=== PATIENT | male | born 1990 | race Caucasian/White ===

== ENCOUNTER 2016-11-04 13:24 | Emergency (ER) | payer BC, OTHER ==
[~2016-11-04] VITALS: Ht 172.7 cm; Wt 77.0 kg
[2016-11-04 13:32] VITALS: TEMP 36.9; Ht 172.7 cm; Wt 77.0 kg
[2016-11-04] MEDS ORDERED: KETOROLAC TROMETHAMINE 30 MG/ML VIAL IV STA (13:49)
--- NOTE | 2016-11-04 13:52 | EMERGENCY ROOM VISIT NOTE ---
History Report prepared by Shyam: Emily Ryan Under the Supervision of: Dr. Grant Gonzalez D.O. First contact with patient: 13:41 Chief Complaint: THROAT PAIN/INJURY Stated Complaint: SORE THROAT History of Present Illness The patient is a 26 year old male who presents to the Emergency Room with complaints of a constant sore throat beginning a week ago. The patient states that he is having a hard time eating and has been spitting out his saliva. He reports that he has been on a z pac and has not gotten any better. He notes that he has gotten all of his vaccines and was tested negative for strep with a rapid test. The patient states that he has never had mono. He complains of face swelling and throat tenderness. Source of History: patient Onset: a week ago Position: throat Quality: other (sore) Timing: constant Modifying Factors (Worsening): eating Note: Pt notes throat tenderness and face swelling. Review of Systems See above for pertinent positives & negatives. A total of 10 systems reviewed and were otherwise negative. Past Medical & Surgical Medical Problems: (1) No Known Active Medical Problems Family History Diabetes mellitus Hypertension Social History Smoking Status: Never Smoker Smokeless Tobacco Use: Yes Alcohol Use: occasionally Drug Use: none Marital Status: in relationship Occupation Status: employed Current/Historical Medications Scheduled Azithromycin (Zithromax), 250 MG PO DAILY Scheduled PRN Rizatriptan Benzoate (Maxalt), 10 MG PO for Migraine Allergies Coded Allergies: BEE STING (Verified Allergy, Unknown, ., 11/04/16) Physical Exam Vital Signs Date Time Temp Pulse Resp B/P Pulse Ox O2 Delivery O2 Flow Rate FiO2 11/04/16 13:32 36.9 112 18 142/84 99 Room Air Physical Exam GENERAL: Patient is well appearing and in no acute distress. HEENT: No acute trauma, normocephalic atraumatic, mucous membranes moist, no nasal congestion, no scleral icterus. Erythematous posterior pharynx, pus over the left tonsil, halitosis. NECK: No stridor, no adenopathy, no meningismus, trachea is midline. LUNGS: No dyspnea. Clear to auscultation and equal bilaterally. No wheeze, no rhonchi. HEART: Regular rate and rhythm. No murmurs, rubs, gallops appreciated. ABDOMEN: Soft, nontender, bowel sounds positive, no masses appreciated, no peritonitis. BACK: No midline tenderness, no CVA tenderness EXTREMITIES: Normal motion all extremities, no cyanosis, no edema. NEUROLOGIC: Alert and oriented, no acute motor or sensory deficits, no focal weakness, cranial nerves grossly intact. SKIN: No rash, no jaundice, no diaphoresis. Medical Decision & Procedures Laboratory Results 11/04/16 13:58 Red Blood Count 4.98, Mean Corpuscular Volume 89.8, Mean Corpuscular Hemoglobin 30.9, Mean Corpuscular Hemoglobin Concent 34.5, Mean Platelet Volume 8.6 11/04/16 13:58 Test 11/04/16 13:58 White Blood Count 13.71 K/uL (4.8-10.8) Red Blood Count 4.98 M/uL (4.7-6.1) Hemoglobin 15.4 g/dL (14.0-18.0) Hematocrit 44.7 % (42-52) Mean Corpuscular Volume 89.8 fL (80-100) Mean Corpuscular Hemoglobin 30.9 pg (25-34) Mean Corpuscular Hemoglobin Concent 34.5 g/dl (32-36) Platelet Count 193 K/uL (130-400) Mean Platelet Volume 8.6 fL (7.4-10.4) RDW Standard Deviation 41.8 fL (36.4-46.3) RDW Coefficient of Variation 12.8 % (11.5-14.5) Neutrophils % (Manual) 42.9 % Lymphocytes % (Manual) 11.6 % Variant Lymphocytes % (manual) 35.7 % Monocytes % (Manual) 8.9 % Metamyelocytes % 0.9 % Neutrophils # (Manual) 5.88 K/uL (1.4-6.5) Total Absolute Neutrophils 5.88 K/uL (1.4-6.5) Lymphocytes # (Manual) 1.59 K/uL (1.2-3.4) Absolute Variant Lymphocytes 4.89 K/uL Total Absolute Lymphocytes 6.48 K/uL (1.2-3.4) Monocytes # (Manual) 1.22 K/uL (0.11-0.59) Metamyelocytes # 0.12 K/uL (0-0) Red Blood Cell Morphology Unremarkable Anion Gap 12.0 mmol/L (3-11) Est Creatinine Clear Calc Drug Dose 117.2 ml/min Estimated GFR () 131.0 Estimated GFR (Non- 113.0 BUN/Creatinine Ratio 14.6 (10-20) Calcium Level 9.3 mg/dl (8.5-10.1) Monoscreen POS (NEG) Laboratory results as reviewed by me. Medications Administered Medications (Trade) Dose Ordered Sig/Ladarius Route Start Time Stop Time Status Last Admin Dose Admin Lactated Ringer's (Lr 1000ml) 1,000 ml @ 999 mls/hr Q1H1M IV 11/04/16 14:00 11/04/16 16:00 11/04/16 14:22 999 MLS/HR Ketorolac Tromethamine 30 mg 30 mg NOW STAT IV 11/04/16 13:49 11/04/16 13:51 DC 11/04/16 14:22 30 MG Dexamethasone Sodium Phosphate/ Syringe (Decadron Inj/ Syringe) 2.5 ml @ 1 mls/min ONE ONCE IV 11/04/16 14:00 11/04/16 14:02 DC 11/04/16 14:22 1 MLS/MIN ED Course 1341: The patient was evaluated in room C8. A complete history and physical exam was performed. 1349: Toradol Inj 30mg IV. 1400: Dexamethasone Sodium Phosphate 10mg/Syringe 2.5ml @ 1mls/min IV, Lactated Ringers 1000mls @ 999mls/hr IV. Medical Decision Differential diagnoses mumps, mono, strep, viral pharyngitis, and acute leukemia. Patient is 26-year-old male who's had a acute pharyngitis for approximately 2 weeks he finished a course of Keflex and is currently finishing a course of Zithromax. Difficulty swallowing and is having subjective fevers and generalized malaise. His Monospot was positive, I told him to finish his azithromycin at the present time, he was given 10 mg Decadron. Due to a mumps outbreak and tenderness I have sent mumps IgG and IgM however I do not feel that it is consistent with mumps. Patient will be off work the rest of the week and follow-up with his primary care provider next week. Impression Primary Impression: Acute pharyngitis due to infectious mononucleosis Additional Impression: Infectious mononucleosis Scribe Attestation The scribe's documentation has been prepared under my direction and personally reviewed by me in its entirety. I confirm that the note above accurately reflects all work, treatment, procedures, and medical decision making performed by me. Departure Information Dispostion Home / Self-Care Prescriptions Acetaminophen (ACETAMINOPHEN) 500 Mg Tab 1-2 TAB PO Q8H for Pain, #90 TAB Prov: Grant Gonzalez, Tracy.O. 11/04/16 Ibuprofen Tab (MOTRIN) 800 Mg Tab 800 MG PO Q8H Y for Pain, #30 TAB Prov: Grant Gonzalez, Tracy.O. 11/04/16 Referrals No Doctor, Assigned (PCP) Patient Instructions My [facility] Additional Instructions Off work for the rest of this week. Follow-up with her primary care provider next week. Return for being lightheaded passing out or any other concerns. Work Instructions Return To Work: 3 days Specific Date: 11/04/16-11/07/16 Problem Qualifiers
[2016-11-04] MEDS ORDERED: RIZA10TA18 PO (13:53)
[2016-11-04] MEDS ORDERED: AZIT250T PO (13:53)
[2016-11-04] MEDS ORDERED: DEXAMETHASONE INJ 10 MG in SYRINGE 0 ML IV ONE (14:00)
[2016-11-04 14:11] LABS: HEMATOCRIT 44.7 % (42-52); MEAN CELL VOLUME 89.8 fL (80-100); MEAN CORPUSCULAR HEMOGLOBIN 30.9 pg (25-34); MEAN CORPUSCULAR HGB CONC 34.5 g/dl (32-36); MEAN PLATELET VOLUME 8.6 fL (7.4-10.4); PLATELET COUNT 193 K/uL (130-400); RED BLOOD COUNT 4.98 M/uL (4.7-6.1); WHITE BLOOD COUNT 13.71 K/uL (4.8-10.8)
[2016-11-04] MEDS: LACTATED RINGER'S 1000ML 1,000 ML IV SCH ×2 (14:22→15:20)
[2016-11-04 14:32] LABS: BUN/CREATININE RATIO 14.6 (10-20); CALCIUM 9.3 mg/dl (8.5-10.1); CREATININE 0.94 mg/dl (0.60-1.40); POTASSIUM 4.1 mmol/L (3.5-5.1)
[2016-11-04 14:34] LABS: COMPLETE YES; LYMPH ABS # 1.59 K/uL (1.2-3.4); LYMPHOCYTE % 11.6 %; META ABS # 0.12 K/uL (0-0); METAMYELOCYTE % 0.9 %; NEUTROPHILS % 42.9 %; VARIANT LYM ABS # 4.89 K/uL; VARIANT LYMPHOCYTE % 35.7 %
[2016-11-04] MEDS ORDERED: IBUP-1451 PO (14:57)
[2016-11-04] MEDS ORDERED: ACET500T57 PO (14:57)
[2016-11-04 15:52] VITALS: BP 149/80; PULSE 94; O2SAT 98
== END 2016-11-04 15:54 | disposition home or self-care (01) ==
LOC: C.EDB 13:25 → C.EDC 15:54
DX: J02.9 Acute pharyngitis, unspecified (principal); B27.90 Infectious mononucleosis, unspecified without complication

== ENCOUNTER 2022-03-07 09:26 | Inpatient (IN) ==
--- NOTE | 2022-03-07 09:43 | Emergency Department Note ---
Impression & Plan Glioblastoma multiforme, Fall, Acute right-sided weakness ED Provider Note NAME: TREY ALLRED AGE: 31 SEX: M : 1990 ARRIVES VIA: Ambulance INFORMANT: Patient ED PROVIDER(S): Anatoly Oreilly DO CHIEF COMPLAINT: Fall and AMS HPI: The patient is a 31-year-old male with past medical history of GBM stage IV diagnosed in 2019 follows with [facility] on Keppra and Coumadin who presents ER for fall, weakness and confusion. Occurred just prior to arrival. heard a thud in the bathroom and went in and he was confused and could not move his right side. Brought in by EMS. Patient denies any headache or change in vision. No chest pain or shortness of breath. No nausea vomiting or diarrhea. He is able to answer yes and no questions but speech is limited at this time. notes that after several minutes his speech came back gradually has been improving. The weakness in the right side has also been improving. ROS: See above HPI for pertinent positives & negatives. A total of 10 systems reviewed and were otherwise negative. PAST MEDICAL HISTORY:See Below PAST SURGICAL HISTORY:See Below FAMILY HISTORY:See Below SOCIAL HISTORY:See Below HOME MEDICATIONS:See Below ALLERGIES:See Below VITALS:See Below PHYSICAL EXAMINATION: GENERAL: Sitting up in bed, alert, well appearing, well nourished, no distress, non-toxic EYE EXAM: normal conjunctiva. PERRL and EOM's grossly intact. OROPHARYNX: no exudate, no erythema, lips, buccal mucosa, and tongue normal and mucous membranes are moist NECK: supple, no nuchal rigidity, no adenopathy, non-tender LUNGS: Clear to auscultation. Normal chest wall mechanics HEART: no murmurs, S1 normal and S2 normal ABDOMEN: abdomen soft, non-tender, normo-active bowel sounds, no masses, no rebound or guarding. BACK: Back is symmetrical on inspection and there is no deformity, no midline tenderness, no CVA tenderness. SKIN: no rashes and no bruising UPPER EXTREMITIES: upper extremities are grossly normal. LOWER EXTREMITIES: No pitting edema. 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 No weakness on the left. Garbled speech. MEDICAL DECISION MAKING: Patient is a 31-year-old male with a past medical history of a GBM presents the ER following collapsed in the bathroom with confusion which gradually improved in front of the . Upon presentation to the ER he has a focal right-sided deficit. He is on Coumadin does have a known brain mass. He was found to be fe brile 38 degrees. IV was established blood work was obtained labs showed no significant leukocytosis or anemia. INR was elevated at 2.3. BMP with LFTs bilirubin was unremarkable. Troponin was negative. UA was clean. He was COVID-positive. He is not hypoxic. CT angios of the head were negative. Discussed case with Dr. Trevizo from [facility] neurosurgery. Attempted to send the images down to him but he was unable to visualize them. Discussed the report with him in comparison to MRI performed 10 days ago and he notes it is very similar. He does not believe he needs to be transferred down. Discussed with the hospitalist for further observation as he still has right-sided weakness. Question if this was seizure as when he woke up he was confused and gradually improved first stroke. He was not candidate for tPA with the elevated INR. Patient was admitted for further work-up. Triage Nursing notes reviewed. Limited review of prior medical records performed Vital Signs: reviewed and remarkable for no significant abnormalities Differential diagnosis: Differential Diagnosis includes but is not limited to ischemic Stroke, hemo rrhagic stroke, bells palsy, mass, neoplasm, migraine headache, seizure, subarachnoid hemorrhage, TIA, and transient global amnesia. ER treatment provided: See below Diagnostics interpreted by me: ECG: Sinus rhythm rate 94 Normal axis No PVCs QTC 397 Cardiac Monitoring: An order was placed for continuous cardiac monitoring. The monitor shows a rate of 90 with sinus rhythm. Laboratory studies: As stated above and show below. Imaging studies: CT angios of the head and neck as described Consultation(s): D/w hospitalist and neurosurgery as described above Procedures: none Critical Care: None Past Med/Surg History Medical History (Updated 03/07/22 @ 15:17 by Anatoly Oreilly DO) DVT (deep venous thrombosis) (06/15/20) Expressive aphasia Migraine headache Seizures (~02/2020) Stroke (05/30/20) Venom-induced anaphylaxis Surgical History H/O craniotomy (09/29/20) History of wisdom tooth extraction Family History Grandfather (Paternal) Diabetes Mother Hypercholesterolemia Denies family history of Ovarian cancer Prostate cancer Myocardial infarction Breast cancer Colorectal cancer Social History Smoking Status: Never smoker Second Hand Exposure: No; Hx Alcohol Use: Yes Alcohol type: beer Alcohol Intake Frequency: Monthly or Less Hx Substance Use: No Preferred Language: Polish Communication Ability: Effective Visual Impairment: No Limitations Hearing Ability: Normal 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 Beliefs That Will Affect Care: None marital status: Current Living Situation: Spouse current occupational status: employed 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 Verified 08/27/20 15:17 No Known Drug Allergies Allergy Verified 08/27/20 15:17 Home Meds Home Medications Medication Instructions Recorded Confirmed enoxaparin 80 mg/0.8 mL 80 mg SUBCUT Q12H 06/20/20 03/07/22 subcutaneous syringe (Lovenox) lacosamide 200 mg tablet 200 mg PO BID 06/20/20 03/07/22 levetiracetam 500 mg tablet 1,500 mg PO BID tab 06/20/20 03/07/22 acetaminophen 500 mg tablet 500 mg PO Q6H PRN 08/07/20 03/07/22 (Tylenol Extra Strength) ondansetron HCl 8 mg tablet 8 mg PO Q8H PRN 08/07/20 03/07/22 prochlorperazine maleate 10 mg 10 mg PO Q6H PRN 08/07/20 03/07/22 tablet (Compazine) temozolomide 140 mg capsule 140 mg PO DAILY 08/07/20 03/07/22 temozolomide 5 mg capsule 10 mg PO DAILY cap 08/07/20 03/07/22 calcium carbonate 600 mg-vitamin 1 tab PO BID 03/07/22 03/07/22 D3 20 mcg (800 unit) tablet dexamethasone 1 mg tablet 0.5 mg PO DAILY 03/07/22 03/07/22 hydrocortisone 20 mg tablet 20 mg PO BID 03/07/22 03/07/22 metoprolol succinate 50 mg 75 mg PO DAILY 03/07/22 03/07/22 tablet,extended release 24 hr omeprazole 40 mg capsule,delayed 40 mg PO DAILY 03/07/22 03/07/22 release warfarin 5 mg tablet 5 mg PO [id number]@0903/07/22 03/07/22 warfarin 5 mg tablet 7.5 mg PO SUTH@89903/07/22 03/07/22 Results & Data (ED) Vital Signs Vital Signs - 24 hr 03/07/22 09:35 03/07/22 09:39 03/07/22 09:41 Temperature 37.8 C H Temperature Source Oral Oral Pulse Rate 98 H Pulse Rate from SpO2 Sensor Respiratory Rate 32 H Respiratory Effort / Characteristics Non-Labored Respiratory Depth Normal Respiratory Pattern Regular Blood Pressure 134/84 Blood Pressure Mean 100 Blood Pressure Position Sitting Pulse Oximetry 96 Oxygen Delivery Method Room Air Room Air Sepsis Recent Fever Within 48 Hours No Sepsis New/Unexplained Change in Mental Status No Sepsis Action Taken by Nursing No Action Required 03/07/22 10:00 03/07/22 10:30 03/07/22 11:00 Temperature Temperature Source Pulse Rate 101 H 97 H 108 H Pulse Rate from SpO2 Sensor 101 H Respiratory Rate 24 31 H 25 H Respiratory Effort / Characteristics Respiratory Depth Respiratory Pattern Blood Pressure Blood Pressure Mean Blood Pressure Position Pulse Oximetry 96 Oxygen Delivery Method Sepsis Recent Fever Within 48 Hours Sepsis New/Unexplained Change in Mental Status Sepsis Action Taken by Nursing 03/07/22 11:30 03/07/22 11:47 03/07/22 12:00 Temperature Temperature Source Pulse Rate 100 H 107 H 118 H Pulse Rate from SpO2 Sensor Respiratory Rate 1 L 12 19 Respiratory Effort / Characteristics Respiratory Depth Respiratory Pattern Blood Pressure 136/82 Blood Pressure Mean 100 Blood Pressure Position Pulse Oximetry Oxygen Delivery Method Sepsis Recent Fever Within 48 Hours Sepsis New/Unexplained Change in Mental Status Sepsis Action Taken by Nursing 03/07/22 12:07 03/07/22 12:30 03/07/22 13:00 Temperature Temperature Source Pulse Rate 118 H 91 H 94 H Pulse Rate from SpO2 Sensor Respiratory Rate 17 7 L 29 H Respiratory Effort / Characteristics Respiratory Depth Respiratory Pattern Blood Pressure 149/90 H 128/68 123/66 Blood Pressure Mean 109 88 85 Blood Pressure Position Pulse Oximetry Oxygen Delivery Method Sepsis Recent Fever Within 48 Hours Sepsis New/Unexplained Change in Mental Status Sepsis Action Taken by Nursing Laboratory Data Result diagrams: 03/07/22 10:17 03/07/22 10:17 Lab Results 03/07/22 03/07/22 03/07/22 Range/Units 10:17 10:17 10:17 WBC 7.02 (4.8-10.8) K/ul RBC 5.62 (4.63-6.08) M/uL Hgb 15.9 (14.0-18.0) g/dl Hct 49.8 (40.1-51.0) % MCV 88.6 (80.0-100.0) fL MCH 28.3 (25.0-34.0) pg MCHC 31.9 L (32.0-36.0) g/dL RDW Std Deviation 48.5 H (36.4-46.3) fL RDW Coeff of Naresh 15.1 H (11.5-14.5) % Plt Count 187 (130-400) K/uL MPV 8.8 L (9.4-12.4) fL Immature Gran % (Auto) 2.6 % Neut % (Auto) 66.4 % Lymph % (Auto) 17.8 % Blaine % (Auto) 12.5 % Eos % (Auto) 0.4 % Baso % (Auto) 0.3 % Neut # (Auto) 4.66 (1.4-6.5) K/uL Lymph # (Auto) 1.25 (1.2-3.4) K/uL Blaine # (Auto) 0.88 H (0.24-0.82) K/uL Eos # (Auto) 0.03 (0-0.50) K/uL Baso # (Auto) 0.02 (0-0.2) K/uL Immature Gran # (Auto) 0.18 H (0.00-0.02) K/uL PT 23.8 H (9.0-12.0) Seconds INR 2.3 H (0.9-1.1) APTT 38.6 H (21.0-31.0) Seconds PTT Ratio 1.4 Sodium 137 (136-145) mmol/L Potassium 3.8 (3.5-5.1) mmol/L Chloride 99 (98-107) mmol/L Carbon Dioxide 28 (21-32) mmol/L Anion Gap 10 (3-11) BUN 10 (6-23) mg/dl Creatinine 1.23 (0.6-1.4) mg/dl Est Cr Clr Drug Dosing 96.3 ml/min Est GFR ( Amer) 91.4 ml/min Est GFR (Non-Af Amer) 78.8 ml/min BUN/Creatinine Ratio 8.1 L (10-20) Glucose 80 (70-99(Fasting)) mg/dl Calcium 9.8 (8.5-10.1) mg/dl Magnesium 1.7 (1.7-2.4) mg/dl Total Bilirubin 0.5 (0.2-1.0) mg/dl AST 31 (13-39) U/L ALT 57 H (7-52) U/L Alkaline Phosphatase 39 (34-104) U/L Troponin I High Sens 12.9 (0-20) pg/ml Total Protein 7.0 (6.0-8.3) gm/dl Albumin 4.1 (3.4-5.0) gm/dl Globulin 2.9 (2.5-4.0) gm/dl Albumin/Globulin Ratio 1.4 (0.9-2) Urine Color Urine Appearance (Clear) Urine pH (4.5-7.5) Ur Specific [place] (1.000-1.030) Urine Protein (Negative) Urine Glucose (UA) (Negative) Urine Ketones (Negative) Urine Blood (Negative) Urine Nitrite (Negative) Urine Bilirubin (Negative) Urine Urobilinogen (Negative) Ur Leukocyte Esterase (Negative) Urine WBC (Auto) (0-5) /hpf Urine RBC (Auto) (0-4) /hpf U Hyaline Cast (Auto) (0-5) /lpf U Epithel Cells (Auto) (0-5) /lpf Urine Bacteria (Auto) (Negative) SARS-CoV-2, RNA, NAAT (NEGATIVE) 03/07/22 03/07/22 Range/Units 10:45 11:21 WBC (4.8-10.8) K/ul RBC (4.63-6.08) M/uL Hgb (14.0-18.0) g/dl Hct (40.1-51.0) % MCV (80.0-100.0) fL MCH (25.0-34.0) pg MCHC (32.0-36.0) g/dL RDW Std Deviation (36.4-46.3) fL RDW Coeff of Naresh (11.5-14.5) % Plt Count (130-400) K/uL MPV (9.4-12.4) fL Immature Gran % (Auto) % Neut % (Auto) % Lymph % (Auto) % Blaine % (Auto) % Eos % (Auto) % Baso % (Auto) % Neut # (Auto) (1.4-6.5) K/uL Lymph # (Auto) (1.2-3.4) K/uL Blaine # (Auto) (0.24-0.82) K/uL Eos # (Auto) (0-0.50) K/uL Baso # (Auto) (0-0.2) K/uL Immature Gran # (Auto) (0.00-0.02) K/uL PT (9.0-12.0) Seconds INR (0.9-1.1) APTT (21.0-31.0) Seconds PTT Ratio Sodium (136-145) mmol/L Potassium (3.5-5.1) mmol/L Chloride (98-107) mmol/L Carbon Dioxide (21-32) mmol/L Anion Gap (3-11) BUN (6-23) mg/dl Creatinine (0.6-1.4) mg/dl Est Cr Clr Drug Dosing ml/min Est GFR ( Amer) ml/min Est GFR (Non-Af Amer) ml/min BUN/Creatinine Ratio (10-20) Glucose (70-99(Fasting)) mg/dl Calcium (8.5-10.1) mg/dl Magnesium (1.7-2.4) mg/dl Total Bilirubin (0.2-1.0) mg/dl AST (13-39) U/L ALT (7-52) U/L Alkaline Phosphatase (34-104) U/L Troponin I High Sens (0-20) pg/ml Total Protein (6.0-8.3) gm/dl Albumin (3.4-5.0) gm/dl Globulin (2.5-4.0) gm/dl Albumin/Globulin Ratio (0.9-2) Urine Color Yellow Urine Appearance Clear (Clear) Urine pH 6.0 (4.5-7.5) Ur Specific [place] > 1.045 H (1.000-1.030) Urine Protein 2+ H (Negative) Urine Glucose (UA) Negative (Negative) Urine Ketones Negative (Negative) Urine Blood Negative (Negative) Urine Nitrite Negative (Negative) Urine Bilirubin Negative (Negative) Urine Urobilinogen Negative (Negative) Ur Leukocyte Esterase Negative (Negative) Urine WBC (Auto) 1-5 (0-5) /hpf Urine RBC (Auto) 5-10 H (0-4) /hpf U Hyaline Cast (Auto) 5-10 H (0-5) /lpf U Epithel Cells (Auto) 10-20 H (0-5) /lpf Urine Bacteria (Auto) Negative (Negative) SARS-CoV-2, RNA, NAAT POSITIVE A* (NEGATIVE) Administered Medications Discontinued Medications Acetaminophen (Acetaminophen 500 Mg Tab) 1,000 mg PO NOW STA Stop: 03/07/22 14:20 Last Admin: 03/07/22 14:29 Dose: 1,000 mg Documented by: [id number] Dexamethasone Sodium Phosphate (DexamethasonePf 10 Mg/Ml Vial) 1 mg IV NOW ONE Stop: 03/07/22 11:19 Last Admin: 03/07/22 11:42 Dose: 1 mg Documented by: [id number] Hydrocortisone Sodium Succinate (Hydrocortisone Sod Succinate 100 Mg/2 Ml Vial) 20 mg IV NOW STA Stop: 03/07/22 11:19 Last Admin: 03/07/22 11:42 Dose: 20 mg Documented by: [id number] Sodium Chloride (Nss 1000ml) 1,000 mls @ 999 mls/hr IV .Q1H1M ONE Stop: 03/07/22 11:31 Last Infusion: 03/07/22 12:20 Dose: 0 mls/hr Documented by: [id number] Admin: 03/07/22 10:57 Dose: 999 mls/hr Documented by: [id number] Ceftriaxone Sodium (Rocephin) 2,000 mg in 70 mls @ 140 mls/hr IV NOW STA Stop: 03/07/22 11:00 Last Infusion: 03/07/22 12:12 Dose: 0 mls/hr Documented by: [id number] Admin: 03/07/22 11:42 Dose: 140 mls/hr Documented by: [id number] Ioversol (Optiray 320 125ml) 120 ml IV ONCE ONE Stop: 03/07/22 09:56 Last Admin: 03/07/22 09:55 Dose: 120 ml Documented by: [id number] Lacosamide (Lacosamide 50 Mg Tablet) 200 mg PO NOW STA Stop: 03/07/22 11:21 Last Admin: 03/07/22 11:42 Dose: 200 mg Documented by: [id number] Levetiracetam (Levetiracetam 500 Mg Tab) 1,500 mg PO NOW STA Stop: 03/07/22 11:19 Last Admin: 03/07/22 11:42 Dose: 1,500 mg Documented by: [id number] Imaging Data Radiologist's Impression: Chest X-Ray 03/07/22 09:37 XR chest 1V portable CLINICAL HISTORY: Stroke Like Symptoms. Evaluate cardiopulmonary status COMPARISON STUDY: No previous studies for comparison. TECHNIQUE: 1 view of the chest FINDINGS: Single frontal view of the chest demonstrates the cardiomediastinal silhouette to be within normal limits. There is a decreased inspiratory effort with elevation of the hemidiaphragms and crowding of the bronchovascular markings at the lung bases and centrally. The lungs are clear of alveolar opacities. There is no evidence for pleural effusion. There is no evidence for vascular congestion. There is no acute osseous pathology. IMPRESSION: 1. There is a decreased inspiratory effort with otherwise no acute chest disease. ACT 112: Negative or not required by law. Electronically signed by: Dick Ag M.D. 03/07/2022 10:[address] 03/07/22 09:[address] OF THE BRAIN; CT ANGIOGRAM OF THE BRAIN; CT ANGIOGRAM OF THE NECK CLINICAL HISTORY: Strokelike symptoms. COMPARISON STUDY: CT of the brain dated 05/23/2020. MRI of the brain dated 05/09/2020. TECHNIQUE: Unenhanced axial CT scan of the brain is performed. Subsequently, following the IV administration of 120 of Optiray 320, CT angiogram of the head and neck was performed from the aortic arch to the vertex. Images are reviewed in the axial, sagittal, and coronal planes. 3-D MIPS images are created and assessed. IV contrast was administered without complication. All measurements were calculated based on NASCET criteria. A dose lowering technique was utilize d adhering to the principles of ALARA. CT DOSE: 1249.86 mGy.cm FINDINGS: Brain parenchyma: There are large foci of encephalomalacia within the left frontal, parietal, and temporal lobes consistent with previous surgical re section. There is associated ex vacuo dilatation of the left lateral ventricle. A peripherally calcified cystic lesion. Centered in the left please ganglia/ rivas radiata measures 3.5 x 2.2 cm. A CSF attenuation extra-axial collection along the left craniectomy defect measures up to 12 mm in diameter. 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 There is volume loss in left thalamus as well as Wallerian degeneration of the left magen. There is no acute hemorrhage, midline shift, or evidence of acute territorial ischemia by CT criteria. There is no CT evidence of enhancing mass lesion on the angiogram phase images. The ventricles, sulci, and cisterns are normal in configuration. Morris-white matter differentiation is preserved. Thoracic aorta: Visualized portions of the thoracic aorta are normal in caliber. The aortic arch demonstrates standard 3-vessel anatomy. Right carotid arterial system: The right common carotid artery is widely patent, as are the right internal and external carotid arteries. Left carotid arterial system: The left common carotid artery is widely patent, as are the left internal and external carotid arteries. Vertebral arteries: Intervertebral arteries are widely patent bilaterally and codominant. Subclavian arteries: Widely patent bilaterally. Intracranial vasculature: The internal carotid arteries are patent at the skull base, as are the anterior and middle cerebral arteries bilaterally. The vertebrobasilar system and posterior cerebral arteries are widely patent. There is a small right posterior communicating artery. The vertebral arteries are codominant. There is no aneurysm, high-grade stenosis, or focal vessel cut off seen throughout the intracranial circulation. Jugular veins: Patent bilaterally. Dural sinuses: Patent. Lung apices: Partially visualized upper lobe lung parenchyma appears clear. Soft tissues: The visualized pharyngeal soft tissues are normal in appearance noting angiographic phase technique. The oropharyngeal airway appears widely patent. The salivary and thyroid glands are normal in appearance. No cervical lymphadenopathy is seen. Skeletal structures: There is postoperative change from left-sided craniectomy. No destructive calvarial lesion is identified. The cervical spine is within normal limits. Orbits: The bony orbits are intact. Orbital contents are normal as visualized. Sinuses and mastoids: The paranasal sinuses are clear. The mastoid air cells are well pneumatized. IMPRESSION: 1. There is no hemorrhage, midline shift, or evidence of acute territorial ischemia by CT criteria. 2. Postoperative change from extensive left hemispheric resection and left-sided craniectomy as above. 3. There is a pathologically indeterminant peripherally calcified cystic lesion in the left hemisphere as above. There is no CT evidence of residual enhancing lesion. Correlate with any prior outside imaging studies. 4. 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 There is only minimal associated mass effect. Correlate with any prior outside imaging studies. 5. Unremarkable CT angiogram of the brain. 6. Unremarkable CT angiogram of the neck. ACT 112: Negative or not required by law. Electronically signed by: Oumar Pulido M.D. 03/07/2022 10:03 AM Head CTA 03/07/22 09:[address] OF THE BRAIN; CT ANGIOGRAM OF THE BRAIN; CT ANGIOGRAM OF THE NECK CLINICAL HISTORY: Strokelike symptoms. COMPARISON STUDY: CT of the brain dated 05/23/2020. MRI of the brain dated 05/09/2020. TECHNIQUE: Unenhanced axial CT scan of the brain is performed. Subsequently, following the IV administration of 120 of Optiray 320, CT angiogram of the head and neck was performed from the aortic arch to the vertex. Images are reviewed in the axial, sagittal, and coronal planes. 3-D MIPS images are created and assessed. IV contrast was administered without complication. All measurements were calculated based on NASCET criteria. A dose lowering technique was utilized adhering to the principles of ALARA. CT DOSE: 1249.86 mGy.cm FINDINGS: Brain parenchyma: There are large foci of encephalomalacia within the left frontal, parietal, and temporal lobes consistent with previous surgical resection. There is associated ex vacuo dilatation of the left lateral ventricle. A peripherally calcified cystic lesion. Centered in the left please ganglia/ rivas radiata measures 3.5 x 2.2 cm. A CSF attenuation extra-axial collection along the left craniectomy defect measures up to 12 mm in diameter. 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 There is volume loss in left thalamus as well as Wallerian degeneration of the left magen. There is no acute hemorrhage, midline shift, or evidence of acute territorial ischemia by CT criteria. There is no CT evidence of enhancing mass lesion on the angiogram phase images. The ventricles, sulci, and cisterns are normal in configuration. Morris-white matter differentiation is preserved. Thoracic aorta: Visualized portions of the thoracic aorta are normal in caliber. The aortic arch demonstrates standard 3-vessel anatomy. Right carotid arterial system: The right common carotid artery is widely patent, as are the right internal and external carotid arteries. Left carotid arterial system: The left common carotid artery is widely patent, as are the left internal and external carotid arteries. Vertebral arteries: Intervertebral arteries are widely patent bilaterally and codominant. Subclavian arteries: Widely patent bilaterally. Intracranial vasculature: The internal carotid arteries are patent at the skull base, as are the anterior and middle cerebral arteries bilaterally. The vertebrobasilar system and posterior cerebral arteries are widely patent. There is a small right posterior communicating artery. The vertebral arteries are codominant. There is no aneurysm, high-grade stenosis, or focal vessel cut off seen throughout the intracranial circulation. Jugular veins: Patent bilaterally. Dural sinuses: Patent. Lung apices: Partially visualized upper lobe lung parenchyma appears clear. Soft tissues: The visualized pharyngeal soft tissues are normal in appearance noting angiographic phase technique. The oropharyngeal airway appears widely patent. The salivary and thyroid glands are normal in appearance. No cervical lymphadenopathy is seen. Skeletal structures: There is postoperative change from left-sided craniectomy. No destructive calvarial lesion is identified. The cervical spine is within normal limits. Orbits: The bony orbits are intact. Orbital contents are normal as visualized. Sinuses and mastoids: The paranasal sinuses are clear. The mastoid air cells are well pneumatized. IMPRESSION: 1. There is no hemorrhage, midline shift, or evidence of acute territorial ischemia by CT criteria. 2. Postoperative change from extensive left hemispheric resection and left-sided craniectomy as above. 3. There is a pathologically indeterminant peripherally calcified cystic lesion in the left hemisphere as above. There is no CT evidence of residual enhancing lesion. Correlate with any prior outside imaging studies. 4. 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 There is only minimal associated mass effect. Correlate with any prior outside imaging studies. 5. Unremarkable CT angiogram of the brain. 6. Unremarkable CT angiogram of the neck. ACT 112: Negative or not required by law. Electronically signed by: Oumar Pulido M.D. 03/07/2022 10:03 AM Neck CTA 03/07/22 09:[address] OF THE BRAIN; CT ANGIOGRAM OF THE BRAIN; CT ANGIOGRAM OF THE NECK CLINICAL HISTORY: Strokelike symptoms. COMPARISON STUDY: CT of the brain dated 05/23/2020. MRI of the brain dated 05/09/2020. TECHNIQUE: Unenhanced axial CT scan of the brain is performed. Subsequently, following the IV administration of 120 of Optiray 320, CT angiogram of the head and neck was performed from the aortic arch to the vertex. Images are reviewed in the axial, sagittal, and coronal planes. 3-D MIPS images are created and assessed. IV contrast was administered without complication. All measurements were calculated based on NASCET criteria. A dose lowering technique was u tilized adhering to the principles of ALARA. CT DOSE: 1249.86 mGy.cm FINDINGS: Brain parenchyma: There are large foci of encephalomalacia within the left frontal, parietal, and temporal lobes consistent with previous surgical resection. There is associated ex vacuo dilatation of the left lateral ventricle. A peripherally calcified cystic lesion. Centered in the left please ganglia/ rivas radiata measures 3.5 x 2.2 cm. A CSF attenuation extra-axial collection along the left craniectomy defect measures up to 12 mm in diameter. 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 There is volume loss in left thalamus as well as Wallerian degeneration of the left magen. There is no acute hemorrhage, midline shift, or evidence of acute territorial ischemia by CT criteria. There is no CT evidence of enhancing mass lesion on the angiogram phase images. The ve ntricles, sulci, and cisterns are normal in configuration. Morris-white matter differentiation is preserved. Thoracic aorta: Visualized portions of the thoracic aorta are normal in caliber. The aortic arch demonstrates standard 3-vessel anatomy. Right carotid arterial system: The right common carotid artery is widely patent, as are the right internal and external carotid arteries. Left carotid arterial system: The left common carotid artery is widely patent, as are the left internal and external carotid arteries. Vertebral arteries: Intervertebral arteries are widely patent bilaterally and codominant. Subclavian arteries: Widely patent bilaterally. Intracranial vasculature: The internal carotid arteries are patent at the skull base, as are the anterior and middle cerebral arteries bilaterally. The vertebrobasilar system and posterior cerebral arteries are widely patent. There is a small right posterior communicating artery. The vertebral arteries are codominant. There is no aneurysm, high-grade stenosis, or focal vessel cut off s een throughout the intracranial circulation. Jugular veins: Patent bilaterally. Dural sinuses: Patent. Lung apices: Partially visualized upper lobe lung parenchyma appears clear. Soft tissues: The visualized pharyngeal soft tissues are normal in appearance noting angiographic phase technique. The oropharyngeal airway appears widely patent. The salivary and thyroid glands are normal in appearance. No cervical lymphadenopathy is seen. Skeletal structures: There is postoperative change from left-sided craniectomy. No destructive calvarial lesion is identified. The cervical spine is within normal limits. Orbits: The bony orbits are intact. Orbital contents are normal as visualized. Sinuses and mastoids: The paranasal sinuses are clear. The mastoid air cells are well pneumatized. IMPRESSION: 1. There is no hemorrhage, midline shift, or evidence of acute territorial ischemia by CT criteria. 2. Postoperative change from extensive left hemispheric resection and left-sided craniectomy as above. 3. There is a pathologically indeterminant peripherally calcified cystic lesion in the left hemisphere as above. There is no CT evidence of residual enhancing lesion. Correlate with any prior outside imaging studies. 4. 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 There is only minimal associated mass effect. Correlate with any prior outside imaging studies. 5. Unremarkable CT angiogram of the brain. 6. Unremarkable CT angiogram of the neck. ACT 112: Negative or not required by law. Electronically signed by: Oumar Pulido M.D. 03/07/2022 10:03 AM Discharge Plan Visit Data Chief Complaint: Neuro Symptoms/Deficit Stated Complaint: loss of consciousness ED Provider: Anatoly Oreilly Discharge Problem: Glioblastoma multiforme, Fall, Acute right-sided weakness Discharge Instructions Interventions: ED Discharge Assessment Last Done: 03/07/22 14:25
[2022-03-07] MEDS ORDERED: OPTIRAY 320 125ml IV ONE (09:55)
--- NOTE | 2022-03-07 10:05 | CT Scan Report ---
UNENHANCED CT OF THE BRAIN; CT ANGIOGRAM OF THE BRAIN; CT ANGIOGRAM OF THE NECK CLINICAL HISTORY: Strokelike symptoms. COMPARISON STUDY: CT of the brain dated 05/23/2020. MRI of the brain dated 05/09/2020. TECHNIQUE: Unenhanced axial CT scan of the brain is performed. Subsequently, following the IV adminis tration of 120 of Optiray 320, CT angiogram of the head and neck was performed from the aortic arch t o the vertex. Images are reviewed in the axial, sagittal, and coronal planes. 3-D MIPS images are cre ated and assessed. IV contrast was administered without complication. All measurements were calculate d based on NASCET criteria. A dose lowering technique was utilized adhering to the principles of ALA RA. CT DOSE: 1249.86 mGy.cm FINDINGS: Brain parenchyma: There are large foci of encephalomalacia within the left frontal, parietal, and tem poral lobes consistent with previous surgical resection. There is associated ex vacuo dilatation of t he left lateral ventricle. A peripherally calcified cystic lesion. Centered in the left please gangli a/ rivas radiata measures 3.5 x 2.2 cm. A CSF attenuation extra-axial collection along the left cran iectomy defect measures up to 12 mm in diameter. 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 There is volume loss in left thalamus as w ell as Wallerian degeneration of the left magen. There is no acute hemorrhage, midline shift, or evide nce of acute territorial ischemia by CT criteria. There is no CT evidence of enhancing mass lesion on the angiogram phase images. The ventricles, sulci, and cisterns are normal in configuration. Morris-wh ite matter differentiation is preserved. Thoracic aorta: Visualized portions of the thoracic aorta are normal in caliber. The aortic arch demo nstrates standard 3-vessel anatomy. Right carotid arterial system: The right common carotid artery is widely patent, as are the right int ernal and external carotid arteries. Left carotid arterial system: The left common carotid artery is widely patent, as are the left international marketing specialist al and external carotid arteries. Vertebral arteries: Intervertebral arteries are widely patent bilaterally and codominant. Subclavian arteries: Widely patent bilaterally. Intracranial vasculature: The internal carotid arteries are patent at the skull base, as are the ante rior and middle cerebral arteries bilaterally. The vertebrobasilar system and posterior cerebral caroline sandra are widely patent. There is a small right posterior communicating artery. The vertebral arteries are codominant. There is no aneurysm, high-grade stenosis, or focal vessel cut off seen throughout t he intracranial circulation. Jugular veins: Patent bilaterally. Dural sinuses: Patent. Lung apices: Partially visualized upper lobe lung parenchyma appears clear. Soft tissues: The visualized pharyngeal soft tissues are normal in appearance noting angiographic pha se technique. The oropharyngeal airway appears widely patent. The salivary and thyroid glands are nor mal in appearance. No cervical lymphadenopathy is seen. Skeletal structures: There is postoperative change from left-sided craniectomy. No destructive calvar ial lesion is identified. The cervical spine is within normal limits. Orbits: The bony orbits are intact. Orbital contents are normal as visualized. Sinuses and mastoids: The paranasal sinuses are clear. The mastoid air cells are well pneumatized. IMPRESSION: 1. There is no hemorrhage, midline shift, or evidence of acute territorial ischemia by CT criteria. 2. Postoperative change from extensive left hemispheric resection and left-sided craniectomy as above . 3. There is a pathologically indeterminant peripherally calcified cystic lesion in the left hemispher e as above. There is no CT evidence of residual enhancing lesion. Correlate with any prior outside im aging studies. 4. 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 There is only minimal associated mass effect. Correlate with any prior outs carlos imaging studies. 5. Unremarkable CT angiogram of the brain. 6. Unremarkable CT angiogram of the neck. ACT 112: Negative or not required by law. Electronically signed by: Oumar Pulido M.D. 03/07/2022 10:03 AM
--- NOTE | 2022-03-07 10:09 | XRay Report ---
XR chest 1V portable CLINICAL HISTORY: Stroke Like Symptoms. Evaluate cardiopulmonary status COMPARISON STUDY: No previous studies for comparison. TECHNIQUE: 1 view of the chest FINDINGS: Single frontal view of the chest demonstrates the cardiomediastinal silhouette to be within normal li mits. There is a decreased inspiratory effort with elevation of the hemidiaphragms and crowding of th e bronchovascular markings at the lung bases and centrally. The lungs are clear of alveolar opacities . There is no evidence for pleural effusion. There is no evidence for vascular congestion. There is n o acute osseous pathology. IMPRESSION: 1. There is a decreased inspiratory effort with otherwise no acute chest disease. ACT 112: Negative or not required by law. Electronically signed by: Dick Ag M.D. 03/07/2022 10:08 AM
[2022-03-07] MEDS ORDERED: SODIUM CHLORIDE 0.9% 1000ML 1,000 ML IV ONE (10:31)
[2022-03-07] MEDS ORDERED: cefTRIAXone SODIUM 2,000 MG/70 ML BAG IV STA (10:31)
[2022-03-07 10:44] LABS: Basophils # (auto) 0.02 K/uL (0-0.2); Basophils % (auto) 0.3 %; Eosinophils # (auto) 0.03 K/uL (0-0.50); Eosinophils % (auto) 0.4 %; Hematocrit (blood only) 49.8 % (40.1-51.0); Hemoglobin 15.9 g/dl (14.0-18.0); Immature Granulocytes # (auto) 0.18 K/uL (0.00-0.02); Immature Granulocytes % (auto) 2.6 %; Lymphocytes # (auto) 1.25 K/uL (1.2-3.4); Lymphocytes % (auto) 17.8 %; Mean Corpuscular Hemoglobin 28.3 pg (25.0-34.0); Mean Corpuscular Hgb Conc 31.9 g/dL (32.0-36.0); Mean Corpuscular Volume 88.6 fL (80.0-100.0); Mean Platelet Volume 8.8 fL (9.4-12.4); Monocytes # (auto) 0.88 K/uL (0.24-0.82); Monocytes % (auto) 12.5 %; Neutrophils # (auto) 4.66 K/uL (1.4-6.5); Neutrophils % (auto) 66.4 %; Platelet Count 187 K/uL (130-400); RDW Coefficient of Variation 15.1 % (11.5-14.5); RDW Standard Deviation 48.5 fL (36.4-46.3); Red Blood Count 5.62 M/uL (4.63-6.08); White Blood Count 7.02 K/ul (4.8-10.8)
[2022-03-07 10:57] LABS: INR 2.3 (0.9-1.1); Partial Thromboplastin Ratio 1.4; Partial Thromboplastin Time 38.6 Seconds (21.0-31.0); Prothrombin Time 23.8 Seconds (9.0-12.0)
[2022-03-07 11:10] LABS: Troponin I High Sensitivity 12.9 pg/ml (0-20)
[2022-03-07 11:14] LABS: Albumin Globulin Ratio 1.4 (0.9-2); Albumin Level 4.1 gm/dl (3.4-5.0); BUN Creatinine Ratio 8.1 (10-20); Bilirubin,Total 0.5 mg/dl (0.2-1.0); Calcium 9.8 mg/dl (8.5-10.1); Creatinine Clr Calc Pharmacy 96.3 ml/min; Est GFR (African American) 91.4 ml/min; Est GFR (Non-African American) 78.8 ml/min; Globulin 2.9 gm/dl (2.5-4.0); Magnesium 1.7 mg/dl (1.7-2.4); Potassium 3.8 mmol/L (3.5-5.1)
[2022-03-07] MEDS ORDERED: dexAMETHasone**PF** 10 MG/ML VIAL IV ONE (11:18)
[2022-03-07] MEDS ORDERED: HYDROCORTISONE SOD SUCCINATE 100 MG/2 ML VIAL IV STA (11:18)
[2022-03-07] MEDS ORDERED: levETIRAcetam 500 MG TAB PO STA (11:18)
[2022-03-07] MEDS ORDERED: LACOSAMIDE 50 MG TABLET PO STA (11:20)
[2022-03-07 11:35] LABS: Appearance Urine Clear (Clear); Bacteria Urine Automated Negative (Negative); Bilirubin Urine Negative (Negative); Blood Urine Negative (Negative); Color Urine Yellow; Glucose Urine UA Negative (Negative); Ketones Urine Negative (Negative); Leukocyte Esterase Urine Negative (Negative); Nitrite Urine Negative (Negative); Protein Urine 2+ (Negative); Specific Gravity Urine > 1.045 (1.000-1.030); Urobilinogen Urine Negative (Negative)
--- NOTE | 2022-03-07 12:41 | History & Physical Report ---
Date of Service March 07, 2022 Assessment & Plan (1) Fall: (2) Syncope: (3) Acute right-sided weakness: (4) Glioblastoma multiforme: (5) Seizure disorder: Plan: This is a 31yo M with a PMH of glioblastoma s/p subtotal resection in 2019 complicated by post op L MCA stroke requiring decompressive craniotomy with residual R sided weakness, seizure disorder, history of DVT on senior care anticoagulation who presents from home after unwitnessed fall. Developed fevers yesterday, unwitnessed syncopal episode overnight with head trauma while on coumadin presenting with acutely worsened R sided weakness At baseline, can ambulate independently with R residual weakness, speaks approximately [address] head, CTA head/neck with no hemorrhage, midline shift, or evidence of acute territorial ischemia by CT criteria. Postoperative change from extensive left hemispheric resection and left-sided craniectomy as above Given missed AEDs and steroids in ED Follows with [facility] [place], Dr Gabriel of [facility] onc Discussed case with Dr. Trevizo of [facility] [place] - patient with poor prognosis, weakness likely exacerbated by viral illness. Recommended repeat CT head -if no active bleeding, ok to resume coumadin Neurology consulted Steroid precautions, neuro checks, PT/OT/speech (6) Steroid dependence: Plan: Given home dose 0.5mg Decadron, hydrocortisone 20mg in ED Per discussion with neurosurgery, stress dosing steroids with 10mg decadron x 1, 4mg q4H (7) COVID-19: Plan: PCR test positive 03/07/22. Developed fevers yesterday followed by sore throat and congestion today Saturating at 94% on room air Already receiving IV steroids, incentive spirometry No indication for remdesivir Isolation precautions (8) DVT (deep venous thrombosis): Plan: History of DVT in the past on long-term anticoagulation. If no evidence of bleed on repeat CT head, neurosurgery okay with resuming Coumadin INR 2.3 today Code status: FULL PCP: Carol Dispo: Admitted to PCU Patient seen in collaboration with Dr. Humphreys. Please see addendum. 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 Patient was at baseline up until yesterday when he developed fevers. Took Tylenol every 6 hours overnight. At some point, heard a thud and found patient lying in bathtub. Fall was unwitnessed but patient does not remember it. Does have a small cut on his lip. No loss of bowel or bladder control. Has much more profound right-sided weakness than baseline weakness as a residual deficit from left MCA stroke in 2019. At baseline, patient is able to ambulate independently and communicates clearly with and mom, despite speech being limited to approximately 20 words. Has had persistent right-sided weakness today since episode overnight. Is on long-term anticoagulation for history of DVT, and last took Coumadin last evening. Continues to have fever and chills with cough and rhinorrhea. COVID exposure over 03 March. Tested positive today in the ER. Given missed doses of steroids and Keppra in the ED. Discussed case with Dr. Trevizo of [facility] neuro[facility], who is awaiting official images to be sent but went over report and does not feel there has been a significant change since last week. Okay with patient remaining at [facility]. If no evidence of bleed on repeat CT head, okay to resume coumadin. Patient also follows with oncologist Dr. Gabriel and is on on bevacizumab. Denies any headache, chest pain, shortness of breath, nausea, vomiting, abdominal pain, dysuria, diarrhea or constipation. Allergies Allergy/AdvReac Type Severity Reaction Status Date / Time bee venom protein (honey bee) Allergy Unknown . Verified 08/27/20 15:17 No Known Drug Allergies Allergy Verified 08/27/20 15:17 Home Medications Medication Instructions Recorded Confirmed Type enoxaparin 80 mg/0.8 mL 80 mg SUBCUT Q12H 06/20/20 03/07/22 History subcutaneous syringe (Lovenox) lacosamide 200 mg tablet 200 mg PO BID 06/20/20 03/07/22 History levetiracetam 500 mg tablet 1,500 mg PO BID tab 06/20/20 03/07/22 History acetaminophen 500 mg tablet 500 mg PO Q6H PRN 08/07/20 03/07/22 History (Tylenol Extra Strength) ondansetron HCl 8 mg tablet 8 mg PO Q8H PRN 08/07/20 03/07/22 History prochlorperazine maleate 10 mg 10 mg PO Q6H PRN 08/07/20 03/07/22 History tablet (Compazine) calcium carbonate 600 mg-vitamin 1 tab PO BID 03/07/22 03/07/22 History D3 20 mcg (800 unit) tablet dexamethasone 1 mg tablet 0.5 mg PO DAILY 03/07/22 03/07/22 History hydrocortisone 20 mg tablet 20 mg PO BID 03/07/22 03/07/22 History metoprolol succinate 50 mg 75 mg PO DAILY 03/07/22 03/07/22 History tablet,extended release 24 hr omeprazole 40 mg capsule,delayed 40 mg PO DAILY 03/07/22 03/07/22 History release warfarin 5 mg tablet 5 mg PO MOTUWEFRSA@0900 03/07/22 03/07/22 History warfarin 5 mg tablet 7.5 mg PO SUTH@0900 03/07/22 03/07/22 History Past Med/Surg History Medical History (Updated 03/07/22 @ 16:13 by Eliz Rocha PA-C) DVT (deep venous thrombosis) (06/15/20) h/o DVT on group home anticoaguation Expressive aphasia History of ischemic left MCA stroke complication of glioblastoma resection in 2019, required decompressive craniotomy, has residual R sided weakness Seizure disorder Seizures (~02/2020) Steroid dependence Stroke (05/30/20) Surgical History H/O craniotomy (05/29/20) History of wisdom tooth extraction Family History Grandfather (Paternal) Diabetes Mother Hypercholesterolemia Denies family history of Ovarian cancer Prostate cancer Myocardial infarction Breast cancer Colorectal cancer Social History (Updated 03/07/22 @ 15:53 by Eliz Rocha PA-C) Smoking Status: Never smoker Second Hand Exposure: No; Hx Alcohol Use: Yes Alcohol type: beer Alcohol Intake Frequency: Monthly or Less Hx Substance Use: No Preferred Language: Azeri Communication Ability: Effective Communication Ability Comment: responds Yes/No to aimple questions. Limited vocabulary. 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 Other Information That Helps Us Care for You: No other: "expecting" in December Feels Safe at Home: Yes Safety Concerns: Feels Safe At This Time Childhood Exposure to Second-Hand Smoke: No caffeine: Yes (soda once per day and coffee with meals) during the past year weight has: remained stable Dental Care, Regularly: Yes Physical Activity Frequency: 1-2 Times per Week Physical Activity Frequency Comment: resides inpatient at [facility] Seatbelt Use: always Sunscreen Use: Yes Assistive Devices: Wheelchair Review of Systems Review of Systems: At least ten systems reviewed and negative except as noted in the HPI. Physical Exam Physical Exam: General Appearance: WD/WN, vitals as above, NAD, sitting up in bed, pleasant, conversing at baseline Head: atraumatic, s/p L craniotomy changes Eyes: normal inspection, PERRL, conjunctivae normal, anicteric sclerae ENT: external ear and nose normal, oropharynx normal Neck: normal visual inspection, trachea midline, no thyromegaly Respiratory: normal respiratory effort, decreased breath sounds bilaterally, no wheeze, rales, rhonchi. No accessory muscle use Cardiovascular: tachycardic rate, rhythm, no murmur, normal peripheral pulses, no BLE edema. Vessels: no JVD Chest: normal inspection of chest Abdomen/GI: normal bowel sounds, soft, nontender, no hepatosplenomegaly Extremities/Musculoskeletal: no cyanosis or clubbing, extremities motor strength 5/5 Neurologic: PERRL, EOMI, accommodation nl, limited speech 2/2 glioblastoma at baseline, CN's II-XI intact bilaterally. R sided weakness with passive ROM only, 0/5 strength, 5/5 TACO on L Psychiatric: A+Ox3, flattened affect Skin: no rashes, normal color, warm/dry Results & Data Results & Data ([facility]) Vital Signs (Past 12 Hours) Vital Signs Temp Pulse Resp BP Pulse Ox 03/07/22 12:07 118 H 17 149/90 H 03/07/22 12:00 118 H 19 03/07/22 11:47 107 H 12 136/82 03/07/22 11:30 100 H 1 L 03/07/22 11:00 108 H 25 H 07/08/22 10:30 97 H 31 H 03/07/22 10:00 101 H 24 96 03/07/22 09:35 37.8 C H 98 H 32 H 134/84 96 Laboratory Results Short CBC 03/07/22 Range/Units 10:17 WBC 7.02 (4.8-10.8) K/ul Hgb 15.9 (14.0-18.0) g/dl Hct 49.8 (40.1-51.0) % Plt Count 187 (130-400) K/uL BMP 03/07/22 10:17 Sodium 137 Potassium 3.8 Chloride 99 Carbon Dioxide 28 BUN 10 Creatinine 1.23 Glucose 80 Calcium 9.8 Liver Function 03/07/22 Range/Units 10:17 Total Bilirubin 0.5 (0.2-1.0) mg/dl AST 31 (13-39) U/L ALT 57 H (7-52) U/L Alkaline Phosphatase 39 (34-104) U/L Albumin 4.1 (3.4-5.0) gm/dl Urine 03/07/22 Range/Units 11:21 Urine Color Yellow Urine Appearance Clear (Clear) Urine pH 6.0 (4.5-7.5) Ur Specific [place] > 1.045 H (1.000-1.030) Urine Protein 2+ H (Negative) Urine Glucose (UA) Negative (Negative) Diagnostic Findings Chest X-Ray 03/07/22 09:37 XR chest 1V portable CLINICAL HISTORY: Stroke Like Symptoms. Evaluate cardiopulmonary status COMPARISON STUDY: No previous studies for comparison. TECHNIQUE: 1 view of the chest FINDINGS: Single frontal view of the chest demonstrates the cardiomediastinal silhouette to be within normal limits. There is a decreased inspiratory effort with elevation of the hemidiaphragms and crowding of the bronchovascular markings at the lung bases and centrally. The lungs are clear of alveolar opacities. There is no evidence for pleural effusion. There is no evidence for vascular congestion. There is no acute osseous pathology. IMPRESSION: 1. There is a decreased inspiratory effort with otherwise no acute chest disease. ACT 112: Negative or not required by law. Electronically signed by: Dick Ag M.D. 03/07/2022 10:[address] 03/07/22 09:[address] OF THE BRAIN; CT ANGIOGRAM OF THE BRAIN; CT ANGIOGRAM OF THE NECK CLINICAL HISTORY: Strokelike symptoms. COMPARISON STUDY: CT of the brain dated 05/23/2020. MRI of the brain dated 05/09/2020. TECHNIQUE: Unenhanced axial CT scan of the brain is performed. Subsequently, following the IV administration of 120 of Optiray 320, CT angiogram of the head and neck was performed from the aortic arch to the vertex. Images are reviewed in the axial, sagittal, and coronal planes. 3-D MIPS images are created and assessed. IV contrast was administered without complication. All measurements were calculated based on NASCET criteria. A dose lowering technique was utilized adhering to the principles of ALARA. CT DOSE: 1249.86 mGy.cm FINDINGS: Brain parenchyma: There are large foci of encephalomalacia within the left frontal, parietal, and temporal lobes consistent with previous surgical resection. There is associated ex vacuo dilatation of the left lateral ventricle. A peripherally calcified cystic lesion. Centered in the left please ganglia/ rivas radiata measures 3.5 x 2.2 cm. A CSF attenuation extra-axial c ollection along the left craniectomy defect measures up to 12 mm in diameter. 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 There is volume loss in left thalamus as well as Wallerian degeneration of the left magen. There is no acute hemorrhage, midline shift, or evidence of acute territorial ischemia by CT criteria. There is no CT evidence of enhancing mass lesion on the angiogram phase images. The ventricles, sulci, and cisterns are normal in configuration. Morris-white matter differentiation is preserved. Thoracic aorta: Visualized portions of the thoracic aorta are normal in caliber. The aortic arch demonstrates standard 3-vessel anatomy. Right carotid arterial system: The right common carotid artery is widely patent, as are the right internal and external carotid arteries. Left carotid arterial system: The left common carotid artery is widely patent, as are the left internal and external carotid arteries. Vertebral arteries: Intervertebral arteries are widely patent bilaterally and codominant. Subclavian arteries: Widely patent bilaterally. Intracranial vasculature: The internal carotid arteries are patent at the skull base, as are the anterior and middle cerebral arteries bilaterally. The vertebrobasilar system and posterior cerebral arteries are widely patent. There is a small right posterior communicating artery. The vertebral arteries are codominant. There is no aneurysm, high-grade stenosis, or focal vessel cut off seen throughout the intracranial circulation. Jugular veins: Patent bilaterally. Dural sinuses: Patent. Lung apices: Partially visualized upper lobe lung parenchyma appears clear. Soft tissues: The visualized pharyngeal soft tissues are normal in appearance noting angiographic phase technique. The oropharyngeal airway appears widely patent. The salivary and thyroid glands are normal in appearance. No cervical lymphadenopathy is seen. Skeletal structures: There is postoperative change from left-sided craniectomy. No destructive calvarial lesion is identified. The cervical spine is within normal limits. Orbits: The bony orbits are intact. Orbital contents are normal as visualized. Sinuses and mastoids: The paranasal sinuses are clear. The mastoid air cells are well pneumatized. IMPRESSION: 1. There is no hemorrhage, midline shift, or evidence of acute territorial ischemia by CT criteria. 2. Postoperative change from extensive left hemispheric resection and left-sided craniectomy as above. 3. There is a pathologically indeterminant peripherally calcified cystic lesion in the left hemisphere as above. There is no CT evidence of residual enhancing lesion. Correlate with any prior outside imaging studies. 4. 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 There is only minimal associated mass effect. Correlate with any prior outside imaging studies. 5. Unremarkable CT angiogram of the brain. 6. Unremarkable CT angiogram of the neck. ACT 112: Negative or not required by law. Electronically signed by: Oumar Pulido M.D. 03/07/2022 10:03 AM Head CTA 03/07/22 09:[address] OF THE BRAIN; CT ANGIOGRAM OF THE BRAIN; CT ANGIOGRAM OF THE NECK CLINICAL HISTORY: Strokelike symptoms. COMPARISON STUDY: CT of the brain dated 05/23/2020. MRI of the brain dated 05/09/2020. TECHNIQUE: Unenhanced axial CT scan of the brain is performed. Subsequently, following the IV administration of 120 of Optiray 320, CT angiogram of the head and neck was performed from the aortic arch to the vertex. Images are reviewed in the axial, sagittal, and coronal planes. 3-D MIPS images are created and assessed. IV contrast was administered without complication. All measurements were calculated based on NASCET criteria. A dose lowering technique was utilized adhering to the principles of ALARA. CT DOSE: 1249.86 mGy.cm FINDINGS: Brain parenchyma: There are large foci of encephalomalacia within the left frontal, parietal, and temporal lobes consistent with previous surgical resection. There is associated ex vacuo dilatation of the left lateral ventricle. A peripherally calcified cystic lesion. Centered in the left please ganglia/ rivas radiata measures 3.5 x 2.2 cm. A CSF attenuation extra-axial collection along the left craniectomy defect measures up to 12 mm in diameter. 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 There is volume loss in left thalamus as well as Wallerian degeneration of the left magen. There is no acute hemorrhage, midline shift, or evidence of acute territorial ischemia by CT criteria. There is no CT evidence of enhancing mass lesion on the angiogram phase images. The ventricles, sulci, and cisterns are normal in configuration. Morris-white matter differentiation is preserved. Thoracic aorta: Visualized portions of the thoracic aorta are normal in caliber. The aortic arch demonstrates standard 3-vessel anatomy. Right carotid arterial system: The right common carotid artery is widely patent, as are the right internal and external carotid arteries. Left carotid arterial system: The left common carotid artery is widely patent, as are the left internal and external carotid arteries. Vertebral arteries: Intervertebral arteries are widely patent bilaterally and codominant. Subclavian arteries: Widely patent bilaterally. Intracranial vasculature: The internal carotid arteries are patent at the skull base, as are the anterior and middle cerebral arteries bilaterally. The vertebrobasilar system and posterior cerebral arteries are widely patent. There is a small right posterior communicating artery. The vertebral arteries are codominant. There is no aneurysm, high-grade stenosis, or focal vessel cut off seen throughout the intracranial circulation. Jugular veins: Patent bilaterally. Dural sinuses: Patent. Lung apices: Partially visualized upper lobe lung parenchyma appears clear. Soft tissues: The visualized pharyngeal soft tissues are normal in appearance noting angiographic phase technique. The oropharyngeal airway appears widely patent. The salivary and thyroid glands are normal in appearance. No cervical lymphadenopathy is seen. Skeletal structures: There is postoperative change from left-sided craniectomy. No destructive calvarial lesion is identified. The cervical spine is within normal limits. Orbits: The bony orbits are intact. Orbital contents are normal as visualized. Sinuses and mastoids: The paranasal sinuses are clear. The mastoid air cells are well pneumatized. IMPRESSION: 1. There is no hemorrhage, midline shift, or evidence of acute territorial ischemia by CT criteria. 2. Postoperative change from extensive left hemispheric resection and left-sided craniectomy as above. 3. There is a pathologically indeterminant peripherally calcified cystic lesion in the left hemisphere as above. There is no CT evidence of residual enhancing lesion. Correlate with any prior outside imaging studies. 4. 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 There is only minimal associated mass effect. Correlate with any prior outside imaging studies. 5. Unremarkable CT angiogram of the brain. 6. Unremarkable CT angiogram of the neck. ACT 112: Negative or not required by law. Electronically signed by: Oumar Pulido M.D. 03/07/2022 10:03 AM Neck CTA 03/07/22 09:[address] OF THE BRAIN; CT ANGIOGRAM OF THE BRAIN; CT ANGIOGRAM OF THE NECK CLINICAL HISTORY: Strokelike symptoms. COMPARISON STUDY: CT of the brain dated 05/23/2020. MRI of the brain dated 05/09/2020. TECHNIQUE: Unenhanced axial CT scan of the brain is performed. Subsequently, following the IV administration of 120 of Optiray 320, CT angiogram of the head and neck was performed from the aortic arch to the vertex. Images are reviewed in the axial, sagittal, and coronal planes. 3-D MIPS images are created and assessed. IV contrast was administered without complication. All measurements were calculated based on NASCET criteria. A dose lowering technique was utilized adhering to the principles of ALARA. CT DOSE: 1249.86 mGy.cm FINDINGS: Brain parenchyma: There are large foci of encephalomalacia within the left frontal, parietal, and temporal lobes consistent with previous surgical resection. There is associated ex vacuo dilatation of the left lateral ventricle. A peripherally calcified cystic lesion. Centered in the left please ganglia/ rivas radiata measures 3.5 x 2.2 cm. A CSF attenuation extra-axial collection along the left craniectomy defect measures up to 12 mm in diameter. 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 There is volume loss in left thalamus as well as Wallerian degeneration of the left magen. There is no acute hemorrhage, midline shift, or evidence of acute territorial ischemia by CT criteria. There is no CT evidence of enhancing mass lesion on the angiogram phase images. The ventricles, sulci, and cisterns are normal in configuration. Morris-white matter differentiation is preserved. Thoracic aorta: Visualized portions of the thoracic aorta are normal in caliber. The aortic arch demonstrates standard 3-vessel anatomy. Right carotid arterial system: The right common carotid artery is widely patent, as are the right internal and external carotid arteries. Left carotid arterial system: The left common carotid artery is widely patent, as are the left internal and external carotid arteries. Vertebral arteries: Intervertebral arteries are widely patent bilaterally and codominant. Subclavian arteries: Widely patent bilaterally. Intracranial vasculature: The internal carotid arteries are patent at the skull base, as are the anterior and middle cerebral arteries bilaterally. The vertebrobasilar system and posterior cerebral arteries are widely patent. There is a small right posterior communicating artery. The vertebral arteries are codominant. There is no aneurysm, high-grade stenosis, or focal vessel cut off seen throughout the intracranial circulation. Jugular veins: Patent bilaterally. Dural sinuses: Patent. Lung apices: Partially visualized upper lobe lung parenchyma appears clear. Soft tissues: The visualized pharyngeal soft tissues are normal in appearance noting angiographic phase technique. The oropharyngeal airway appears widely patent. The salivary and thyroid glands are normal in appearance. No cervical lymphadenopathy is seen. Skeletal structures: There is postoperative change from left-sided craniectomy. No destructive calvarial lesion is identified. The cervical spine is within normal limits. Orbits: The bony orbits are intact. Orbital contents are normal as visualized. Sinuses and mastoids: The paranasal sinuses are clear. The mastoid air cells are well pneumatized. IMPRESSION: 1. There is no hemorrhage, midline shift, or evidence of acute territorial ischemia by CT criteria. 2. Postoperative change from extensive left hemispheric resection and left-sided craniectomy as above. 3. There is a pathologically indeterminant peripherally calcified cystic lesion in the left hemisphere as above. There is no CT evidence of residual enhancing lesion. Correlate with any prior outside imaging studies. 4. 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 There is only minimal associated mass effect. Correlate with any prior outside imaging studies. 5. Unremarkable CT angiogram of the brain. 6. Unremarkable CT angiogram of the neck. ACT 112: Negative or not required by law. Electronically signed by: Oumar Pulido M.D. 03/07/2022 10:03 AM Supervising Physician Co-Signing Physician Notes 31-year-old gentleman with PMH of glioblastoma status post subtotal resection [2020] cx by L MCA stroke requiring decompressive craniectomy with residual right-sided weakness, seizure disorder, DVT on Coumadin presented to our ED 03/07 after unwitnessed fall. Per patient's at bedside, patient developed fever yesterday and sore throat and cough today, was fairly at his baseline until yesterday, found him lying in bathtub (after she heard thud) after fall this AM, patient does not remember fa lling and there was no loss of bowel or bladder control. Patient did have hard time articulating and was noted to have increased right extremity weakness from his baseline weakness. Patient is not vaccinated against COVID, this is the first time he is tested positive with COVID. Admitting CT head, CTA head and neck with no acute findings, had postoperative changes from extensive left hemispheric resection and left-sided craniotomy. Per neurosurgery at [facility], repeat CT head and if no bleeding can resume warfarin. Also the recommended stress dose steroid due to COVID infection as patient is on chronic steroid. Await repeat CT head. Per neurology, increased dose of Keppra in the evening by 250 mg, will get MRI brain with and without contrast. Could likely be breakthrough seizure versus st roke. For COVID-19 infection, patient on room air, receiving stress dose steroids, patient on chronic steroid. Stable respiratory alvarez, no indication for remdesivir. Pt tachycardic, will use IVF for now. Upon examination: GENERAL: Alert and oriented x3. NAD, on RA. Obese HEENT: No pallor, no icterus. Pupils equal, round and reactive to light. Oral mucosa moist. NECK: No JVD, no neck masses. HEART: S1 and S2 heard. Tachycardia. No murmur, no gallop. RESPIRATORY SYSTEM: Normal AP diameter. No accessory muscle use. No wheezing, no crackles. ABDOMEN: Soft, bowel sounds present, nontender, no distention. purple striae noted all over lower belly. CENTRAL NERVOUS SYSTEM: No facial droop. Speech is clear but laconic. Obeys simple commands. Moves Lt extremities. RE 0-1/5 EXTREMITIES: No edema, no erythema seen. I have seen and examined the patient and have discussed the case with the provider above. I agree with the assessment and plan as stated. (1) Fall Encounter type: initial encounter Qualified Code(s): W19.XXXA - Unspecified fall, initial encounter
[2022-03-07] MEDS ORDERED: ACETAMINOPHEN 500 MG TAB PO STA (14:19)
[2022-03-07] MEDS ORDERED: ACETAMINOPHEN 500 MG TAB PO PRN (14:57)
[2022-03-07] MEDS ORDERED: ONDANSETRON INJ 2 MG/ML 2 ML VIAL IV PRN (14:57)
[2022-03-07] MEDS ORDERED: ACETAMINOPHEN 325 MG TAB PO PRN (14:57)
[2022-03-07] MEDS ORDERED: PHARMACIST DISCHARGE MED REC CONSULT PRN (14:57)
--- NOTE | 2022-03-07 15:40 | Neurology Consultation ---
Date of Consultation March 07, 2022 Assessment & Plan (1) Fall: 1. MRI brain with and without- r/o extension of GBM 2. Increase Keppra 1500 mg in the morning and 1750 mg in the evening 3. continue lacosamide 200 mg BID 4. seizure precautions 5. PT/OT for discharge needs 6. continue treat for know DVT with coumadin INR to goal (2) Acute right-sided weakness: 1. treat symptomatic covid (3) Glioblastoma multiforme: 1. continue dexamethasone 0.5 mg daily 2. continue temozolomide 140 mg daily 3. continue temozolomide 10 mg daily 4. Supervising Physician Co-Signing Physician Notes Discussed and agree with Princess Medrano PA-C. Patient was seen and examined on televideo. at bedside. Patient had unwitnessed fall or presumed LOC this morning with wrosenign weakness on right side. He is on anticoagulation for known DVT with history of left sided GBM s/p resection complicated by left MCA ischemic stroke with residual right sided weakness. He is on Vimpat 200 mg BID and Keppra 1500 mg BID. reports compiance. Was having fevers yesterday and tested positive for COVID in the ER. Suspect possible breakthrough seizure in the setting of infection (COVID) with farrah's paralysis vs decompensation of old stroke in the setting of infection. Recommend increasing Keppra dose to Keppra 1500 mg in the AM and 1750 in the PM. Continue home Vimpat 200 mg BID. Would recommend MRI brain w/wo for further evaluation. Discussed with patient and and agreeable to plan. 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 He was at baseline up until yesterday when he developed fevers. Took Tylenol every 6 hours overnight.His heard a thud and found patient lying in bathtub. Fall was unwitnessed but patient does not remember it. Does have a small cut on his lip. No loss of bowel or bladder control. Has much more profound right-sided w eakness than baseline weakness as a residual deficit from left MCA stroke in 2020. At baseline, he is able to ambulate independently and communicates clearly with and mom, despite speech being limited to approximately 20 words. Has had persistent right-sided weakness today since episode overnight. Is on long-term anticoagulation for history of DVT, and last took Coumadin last evening. Continues to have fever and chills with cough and rhinorrhea. COVID exposure over 03 March. Tested positive today in the ER. Given missed doses of steroids and Keppra in the ED. Case was discused with Dr. Trevizo of [facility] neurosurgery, who compared to brain MRI obtained at [facility] last week with CTAs today and determined there is no change.He is also follows with oncologist Dr. Gabriel and is on on bevacizumab. Allergies Allergy/AdvReac Type Severity Reaction Status Date / Time bee venom protein (honey bee) Allergy Unknown . Verified 08/27/20 15:17 No Known Drug Allergies Allergy Verified 08/27/20 15:17 Home Medications Medication Instructions Recorded Confirmed Type enoxaparin 80 mg/0.8 mL 80 mg SUBCUT Q12H 06/20/20 03/07/22 History subcutaneous syringe (Lovenox) lacosamide 200 mg tablet 200 mg PO BID 06/20/20 03/07/22 History levetiracetam 500 mg tablet 1,500 mg PO BID tab 06/20/20 03/07/22 History acetaminophen 500 mg tablet 500 mg PO Q6H PRN 08/07/20 03/07/22 History (Tylenol Extra Strength) ondansetron HCl 8 mg tablet 8 mg PO Q8H PRN 08/07/20 03/07/22 History prochlorperazine maleate 10 mg 10 mg PO Q6H PRN 08/07/20 03/07/22 History tablet (Compazine) temozolomide 140 mg capsule 140 mg PO DAILY 08/07/20 03/07/22 History temozolomide 5 mg capsule 10 mg PO DAILY cap 08/07/20 03/07/22 History calcium carbonate 600 mg-vitamin 1 tab PO BID 03/07/22 03/07/22 History D3 20 mcg (800 unit) tablet dexamethasone 1 mg tablet 0.5 mg PO DAILY 03/07/22 03/07/22 History hydrocortisone 20 mg tablet 20 mg PO BID 03/07/22 03/07/22 History metoprolol succinate 50 mg 75 mg PO DAILY 03/07/22 03/07/22 History tablet,extended release 24 hr omeprazole 40 mg capsule,delayed 40 mg PO DAILY 03/07/22 03/07/22 History release warfarin 5 mg tablet 5 mg PO MOTUWEFRSA@0900 03/07/22 03/07/22 History warfarin 5 mg tablet 7.5 mg PO SUTH@0903/07/22 03/07/22 History Patient History Medical History (Updated 03/07/22 @ 16:13 by Eliz Rocha PA-C) DVT (deep venous thrombosis) (06/15/20) h/o DVT on fdc anticoaguation Expressive aphasia History of ischemic left MCA stroke complication of glioblastoma resection in 2019, required decompressive craniotomy, has residual R sided weakness Seizure disorder Seizures (~02/2020) Steroid dependence Stroke (05/30/20) Surgical History H/O craniotomy (05/29/20) History of wisdom tooth extraction Family History Grandfather (Paternal) Diabetes Mother Hypercholesterolemia Denies family history of Ovarian cancer Prostate cancer Myocardial infarction Breast cancer Colorectal cancer Social History (Updated 03/07/22 @ 15:53 by Eliz Rocha PA-C) Smoking Status: Never smoker Second Hand Exposure: No; Hx Alcohol Use: Yes Alcohol type: beer Alcohol Intake Frequency: Monthly or Less Hx Substance Use: No Preferred Language: [place] Communication Ability: Effective Communication Ability Comment: responds Yes/No to aimple questions. Limited vocabulary. 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 He is laying in bed in no distress. Obese male. Following simple commands. Speech is non fluent. Tongue midline no abrasion. Unable to lift right leg to gravity. Lifts right arm to gravity but weak. No myolconic jerks.Eyes midline. Speech is soft. Results & Data ([facility]) Vital Signs (Past 12 Hours) Vital Signs Temp Pulse Resp BP Pulse Ox 03/07/22 14:00 117 H 17 03/07/22 13:30 107 H 26 H 121/70 03/07/22 13:00 94 H 29 H 123/66 03/07/22 12:30 91 H 7 L 128/68 03/07/22 12:07 118 H 17 149/90 H 03/07/22 12:00 118 H 19 03/07/22 11:47 107 H 12 136/82 03/07/22 11:30 100 H 1 L 03/07/22 11:00 108 H 25 H 03/07/22 10:30 97 H 31 H 03/07/22 10:00 101 H 24 96 03/07/22 09:35 37.8 C H 98 H 32 H 134/84 96 Laboratory Results Abnormal lab results 03/07/22 03/07/22 03/07/22 Range/Units 10:17 10:17 10:17 MCHC 31.9 L (32.0-36.0) g/dL RDW Std Deviation 48.5 H (36.4-46.3) fL RDW Coeff of Naresh 15.1 H (11.5-14.5) % MPV 8.8 L (9.4-12.4) fL Green # (Auto) 0.88 H (0.24-0.82) K/uL Immature Gran # (Auto) 0.18 H (0.00-0.02) K/uL PT 23.8 H (9.0-12.0) Seconds INR 2.3 H (0.9-1.1) APTT 38.6 H (21.0-31.0) Seconds BUN/Creatinine Ratio 8.1 L (10-20) ALT 57 H (7-52) U/L Ur Specific [place] (1.000-1.030) Urine Protein (Negative) Urine RBC (Auto) (0-4) /hpf U Hyaline Cast (Auto) (0-5) /lpf U Epithel Cells (Auto) (0-5) /lpf SARS-CoV-2, RNA, NAAT (NEGATIVE) 03/07/22 03/07/22 Range/Units 10:45 11:21 MCHC (32.0-36.0) g/dL RDW Std Deviation (36.4-46.3) fL RDW Coeff of Naresh (11.5-14.5) % MPV (9.4-12.4) fL Green # (Auto) (0.24-0.82) K/uL Immature Gran # (Auto) (0.00-0.02) K/uL PT (9.0-12.0) Seconds INR (0.9-1.1) APTT (21.0-31.0) Seconds BUN/Creatinine Ratio (10-20) ALT (7-52) U/L Ur Specific [place] > 1.045 H (1.000-1.030) Urine Protein 2+ H (Negative) Urine RBC (Auto) 5-10 H (0-4) /hpf U Hyaline Cast (Auto) 5-10 H (0-5) /lpf U Epithel Cells (Auto) 10-20 H (0-5) /lpf SARS-CoV-2, RNA, NAAT POSITIVE A* (NEGATIVE) Diagnostic Findings CXR-There is a decreased inspiratory effort with otherwise no acute chest disease. CT head/CTA head/neck-There is no hemorrhage, midline shift, or evidence of acute territorial ischemia by CT criteria. Postoperative change from extensive left hemispheric resection and left-sided craniectomy as above. There is a pathologically indeterminant peripherally calcified cystic lesion in the left hemisphere as above. There is no CT evidence of residual enhancing lesion. Correlate with any prior outside imaging studies. 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 There is only minimal associated mass effect. Correlate with any prior outside imaging studies. . Unremarkable CT angiogram of the brain. Unremarkable CT angiogram of the neck. (1) Fall Encounter type: initial encounter Qualified Code(s): W19.XXXA - Unspecified fall, initial encounter
[2022-03-07] MEDS ORDERED: PROCHLORPERAZINE MALEATE 10 MG TAB PO PRN (15:44)
[2022-03-07] MEDS ORDERED: dexAMETHasone 10 MG in SYRINGE 0 ML IV ONE (16:00)
[2022-03-07] MEDS: METOPROLOL SUCC 25MG EXT REL TAB PO SCH (17:10)
[2022-03-07] MEDS: SODIUM CHLORIDE 0.9% 1000ML 1,000 ML IV SCH (20:10)
[2022-03-07] MEDS: dexAMETHasone 4 MG in SYRINGE 0 ML IV SCH (20:11)
[2022-03-07] MEDS: levETIRAcetam 500 MG TAB PO SCH (20:14)
[2022-03-07] MEDS: levETIRAcetam 250 MG TAB PO SCH (20:15)
[2022-03-07] MEDS: CALCIUM 600MG + VIT D 400 IU TAB PO SCH (20:16)
[2022-03-07] MEDS: LACOSAMIDE 50 MG TABLET PO SCH (20:29)
--- NOTE | 2022-03-07 23:07 | Electrocardiogram Report ---
Test Reason : Blood Pressure : / mmHG Vent. Rate : 094 BPM Atrial Rate : 094 BPM P-R Int : 140 ms QRS Dur : 088 ms QT Int : 318 ms P-R-T Axes : 023 036 -12 degrees QTc Int : 397 ms Poor data quality, interpretation may be adversely affected Normal sinus rhythm Nonspecific T wave abnormality Abnormal ECG When compared with ECG of 23-MAY-2020 16:47, No significant change was found Confirmed by Óscar Moise ([id number]) on 03/07/2022 11:06:57 PM Referred By: REFERRED SELF Confirmed By:Óscar Moise
[2022-03-07] MEDS ORDERED: GADOBUTROL 65ML VIAL IV ONE (23:14)
[2022-03-08] MEDS: dexAMETHasone 4 MG in SYRINGE 0 ML IV SCH ×6 (00:20→23:44)
[2022-03-08 07:14] LABS: Hematocrit (blood only) 47.1 % (40.1-51.0); Hemoglobin 15.3 g/dl (14.0-18.0); Mean Corpuscular Hemoglobin 28.3 pg (25.0-34.0); Mean Corpuscular Hgb Conc 32.5 g/dL (32.0-36.0); Mean Corpuscular Volume 87.2 fL (80.0-100.0); Mean Platelet Volume 9.1 fL (9.4-12.4); Platelet Count 180 K/uL (130-400); RDW Coefficient of Variation 14.7 % (11.5-14.5); RDW Standard Deviation 47.4 fL (36.4-46.3); White Blood Count 6.91 K/ul (4.8-10.8)
[2022-03-08 07:44] LABS: Estimated Average Glucose 117 mg/dl; Hemoglobin A1C 5.7 % (4.5-5.6)
[2022-03-08 07:46] LABS: BUN Creatinine Ratio 13.2 (10-20); Calcium 9.2 mg/dl (8.5-10.1); Chol HDL Ratio 4.1 (0-5); Creatinine Clr Calc Pharmacy 151.9 ml/min; Est GFR (African American) 131.5 ml/min; Est GFR (Non-African American) 113.5 ml/min; Potassium 4.1 mmol/L (3.5-5.1)
--- NOTE | 2022-03-08 08:11 | CT Scan Report ---
CT head/brain wo con CLINICAL HISTORY: syncope, R-sided weakness, eval for bleed COMPARISON STUDY: 03/07/2022 CT DOSE: 614.27 mGy.cm TECHNIQUE: Standard CT of the Brain was performed without IV contrast. A dose lowering technique was utilized adhering to the principles of ALARA. FINDINGS: Compared to the previous examination from earlier on the same date, there is no significant interval change. Stable postsurgical changes are again seen involving the left cerebral hemisphere w ith encephalomalacia present. Chronic subdural hygroma is again noted. There is no evidence for inter pamela hemorrhage since earlier study. IMPRESSION: 1. Compared to the earlier examination, there is no significant interval change. 2. Stable postsurgical changes are again noted with no evidence for interval hemorrhage. ACT 112: Negative or not required by law. Electronically signed by: Dick Ag M.D. 03/08/2022 8:09 AM
[2022-03-08] MEDS: METOPROLOL SUCC 25MG EXT REL TAB PO SCH (08:49)
[2022-03-08] MEDS: PANTOprazole 40 MG TAB PO SCH (08:49)
[2022-03-08] MEDS: levETIRAcetam 500 MG TAB PO SCH ×2 (08:49→21:01)
[2022-03-08] MEDS: ASCORBIC ACID 500 MG TAB PO SCH (08:49)
[2022-03-08] MEDS: CALCIUM 600MG + VIT D 400 IU TAB PO SCH ×2 (08:49→21:00)
[2022-03-08] MEDS ORDERED: TEMOZOLOMIDE 5 MG CAPSULE PO SCH (09:00)
[2022-03-08] MEDS ORDERED: TEMOZOLOMIDE 140 MG PO SCH (09:00)
[2022-03-08] MEDS: LACOSAMIDE 50 MG TABLET PO SCH ×2 (10:41→21:30)
[2022-03-08] MEDS: SODIUM CHLORIDE 0.9% 1000ML 1,000 ML IV SCH (10:41)
--- NOTE | 2022-03-08 11:48 | Hospitalist Progress Note ---
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 Developed fevers a day prior to presentation Had unwitnessed syncopal episode overnight with head trauma while on coumadin presenting with acutely worsened R sided weakness At baseline, can ambulate independently with R residual weakness, speaks approximately [address] head, CTA head/neck with no hemorrhage, midline shift, or evidence of acute territorial ischemia by CT criteria. Postoperative change from extensive left hemispheric resection and left-sided craniectomy Follows with [facility] neurosurgery, Dr Gabriel of heme onc Neurology on board Home Keppra increased from 1500 twice daily to 1500 a.m. on 1750 PM. Continue Vimpat 200 mg twice daily. MRI brain done but pending report Discussed with neurosurgeon Dr. Trevizo. Patient should follow up with Neuro surgeon outpatient. Considering clinical improvement, can do quick tapering of dexamethasone to home dose PT/OT eval (6) Steroid dependence: Plan: Patient on 0.5mg Decadron, hydrocortisone 20mg BID at home Per Admitting team's discussion with neurosurgery, patient currently on stress dose Considering clinical improvement, will do a quick taper to home dose. Continue iv dexa for today (7) COVID-19: Plan: PCR test positive 03/07/22. Developed fevers yesterday followed by sore throat and congestion today Saturating at 94% on room air Incentive spirometry No indication for remdesivir Isolation precautions (8) DVT (deep venous thrombosis): Plan: History of DVT in the past on long-term anticoagulation. INR 2.3 on admission No evidence of hemorrhage on CT. Will resume home warfarin Code status: FULL PCP: Carol Admission and Anticipated Discharge Date Admission Date: March 07, 2022 Subjective 31year old man with history of glioblastoma s/p subtotal resection in 2019 complicated by post op L MCA stroke requiring decompressive craniotomywith residual R sided weakness, seizure disorder, history of DVT on skilled nursing anticoagulation who presents from home after unwitnessed fall. Patient seen and examined. Patient has expressive aphasia, able to communicate with few words. Mother was present during evaluation. She noted that patient's depressed left side of head (previous craniotomy site) is not quite back to baseline She also reports improved right sided weakness but not back to baseline. Patient acknowledged this Able to answer yes or no to ROS Denied any headache, dizziness Reports cough, congestion, sore throat Denied any shortness of breath Denies nausea, vomiting, abdominal pain, anorexia, constipation or diarrhea Denies dysuria, frequency, urgency Denies fevers or chills Physical Exam Constitutional: + well hydrated; no acute distress Left side of head depressed. Eyes: PERRL, conjunctivae normal, anicteric sclerae ENMT: external ear and nose normal, oropharynx normal Respiratory: normal respiratory effort; no respiratory distress Decreased breath sounds Cardiovascular: Rate/Rhythm: regular rate and regular rhythm S1 S2 Gastrointestinal (Abdomen): normal bowel sounds, soft, nontender, no hepatosplenomegaly Musculoskeletal: No pedal edema Neurologic: PERRL, EOMI Right hemiparesis Expressive aphasia Follows commands Results & Data Results & Data ([facility]) Vital Signs (Past 12 Hours) Vital Signs Temp Pulse Pulse Resp BP Pulse Ox 03/08/22 07:43 36.5 C 81 18 136/78 95 03/08/22 03:02 36.9 C 92 H 18 121/78 94 03/08/22 02:19 99 H Laboratory Results Abnormal lab results 03/08/22 03/08/22 03/08/22 Range/Units 06:42 06:42 06:42 RDW Std Deviation 47.4 H (36.4-46.3) fL RDW Coeff of Naresh 14.7 H (11.5-14.5) % MPV 9.1 L (9.4-12.4) fL Glucose 135 H (70-99(Fasting)) mg/dl Hemoglobin A1c 5.7 H (4.5-5.6) % (1) Fall Encounter type: initial encounter Qualified Code(s): W19.XXXA - Unspecified fall, initial encounter
--- NOTE | 2022-03-08 13:27 | Neurology Progress Note ---
Date of Service March 08, 2022 Assessment & Plan (1) Seizure disorder: Plan: Mr. Eduin Scott is a 31 yo M with Hx of left sided GBM s/p ressection complicated by left MCA ischemic stroke with residual right sided weakness and aphasia admitted with LOC yesterday followed by worsening right sided weakness. DDx includes breakthrough seizure in the setting of COVID with todds paralysis as right sided weakness has improved Vs syncopal event with COVID and decompensation of prior stroke. Recommend to continue increase dose of Keppra 1500 mg in the AM and 1750 mg in the PM. Continue on discharge as well. MRI brain reviewed and my impression is no evidence of acute stroke. Final read pending. Encephalomalacia in the left frontal and temporal lobes from previous GBM resection and left MCA stroke. Would continue higher dose of steroids , Decadron 0.5 mg BID on discharge until patient can follow up with Hem/Onc. I will arrange follow up with Neurology at [facility] in 6-8 weeks. Otherwise please contact me with any additional questions or concerns. (2) Syncope: (3) COVID-19: (4) Acute right-sided weakness: (5) Glioblastoma multiforme: Admission and Anticipated Discharge Date Admission Date: March 07, 2022 Subjective Patient was seen and examined this afternoon on televideo. Right sided weakness improved but not back to baseline. Denies nay new complaints or concerns. Had MRI completed. Read pending. Mother at bedside. Physical Exam Physical Exam: Patient is awake and following simple commands. Speech is soft and non fluent. Right upper and lower extremity stength improving. Results & Data ([facility]) Vital Signs (Past 12 Hours) Vital Signs Temp Pulse Pulse Resp BP Pulse Ox 03/08/22 11:51 36.6 C 89 20 133/83 94 03/08/22 07:43 36.5 C 81 18 136/78 95 03/08/22 03:02 36.9 C 92 H 18 121/78 94 03/08/22 02:19 99 H Diagnostic Findings MRI brain w/wo contrast reviewed. Encephalomalacia in the left frontal and temporal lobes consistent with prior resection and left MCA ishemic stroke. No evidence of acute stroke.
[2022-03-08] MEDS: WARFARIN SOD 5 MG TAB PO SCH (17:24)
--- NOTE | 2022-03-08 18:12 | Magnetic Resonance Report ---
MR brain wo/w con CLINICAL HISTORY: Seizure activity. Aphasia. Status post fall. History of glioblastoma.. COMPARISON STUDY: 05/09/2020 TECHNIQUE: Multiplanar multisequence images of the brain were performed before and after Gadavist, 1 1 mL of IV contrast. Diffusion weighted imaging and ADC mapping was also performed. FINDINGS: Compared to previous examination, there has been interval development of a recurrent cystic mass lesion within the left parietal lobe. It measures approximately 3.1 cm in greatest length. Reynolds diamante, it does not enhance following contrast administration. Diffuse surrounding edema is present. How ever, there is no evidence for compression upon the left lateral ventricle which demonstrates ex vacu o deformity. Cystic changes are also seen within the left temporal lobe. Again, no abnormal enhancement is demonst rated. Additionally, there has been interval development of a subdural fluid collection on the left measurin g at least 11 mm. While there is effacement of the adjacent cortex, there is again no significant com pression or evidence for midline shift. The right cerebral hemisphere is within normal limits with no mass lesion or edematous changes presen t. On postcontrast images, there is no new evidence for enhancing mass lesion. IMPRESSION: 1. Interval development of a cystic lesion within the left parietal lobe with no evidence for enhance ment as described. 2. Interval development of a subdural fluid collection on the left with no significant mass effect or midline shift demonstrated. 3. No new enhancing lesions are seen. ACT 112: Negative or not required by law. Electronically signed by: Dick Ag M.D. 03/08/2022 6:10 PM
[2022-03-08] MEDS: levETIRAcetam 250 MG TAB PO SCH (21:00)
[2022-03-09] MEDS: dexAMETHasone 4 MG in SYRINGE 0 ML IV SCH ×3 (06:01→16:13)
[2022-03-09 06:17] LABS: Hematocrit (blood only) 47.6 % (40.1-51.0); Hemoglobin 15.6 g/dl (14.0-18.0); Mean Corpuscular Hemoglobin 28.7 pg (25.0-34.0); Mean Corpuscular Hgb Conc 32.8 g/dL (32.0-36.0); Mean Corpuscular Volume 87.5 fL (80.0-100.0); Mean Platelet Volume 9.1 fL (9.4-12.4); Platelet Count 216 K/uL (130-400); RDW Coefficient of Variation 14.7 % (11.5-14.5); RDW Standard Deviation 47.1 fL (36.4-46.3); Red Blood Count 5.44 M/uL (4.63-6.08)
[2022-03-09 06:32] LABS: INR 1.6 (0.9-1.1); Prothrombin Time 17.1 Seconds (9.0-12.0)
[2022-03-09 06:35] LABS: BUN Creatinine Ratio 19.3 (10-20); Calcium 9.5 mg/dl (8.5-10.1); Creatinine Clr Calc Pharmacy 160.9 ml/min; Est GFR (African American) 137.8 ml/min; Est GFR (Non-African American) 118.9 ml/min; Potassium 4.3 mmol/L (3.5-5.1)
[2022-03-09] MEDS: CALCIUM 600MG + VIT D 400 IU TAB PO SCH ×2 (09:25→20:58)
[2022-03-09] MEDS: PANTOprazole 40 MG TAB PO SCH (09:25)
[2022-03-09] MEDS: ASCORBIC ACID 500 MG TAB PO SCH (09:25)
[2022-03-09] MEDS: METOPROLOL SUCC 25MG EXT REL TAB PO SCH (09:25)
[2022-03-09] MEDS: levETIRAcetam 500 MG TAB PO SCH ×2 (09:25→20:58)
[2022-03-09] MEDS: LACOSAMIDE 50 MG TABLET PO SCH ×2 (10:09→21:20)
--- NOTE | 2022-03-09 13:49 | Hospitalist Progress Note ---
Date of Service March 09, 2022 Assessment & Plan (1) Fall: (2) Syncope: (3) Acute right-sided weakness: (4) Glioblastoma multiforme: (5) Seizure disorder: Plan: 31yo M with a PMH of glioblastoma s/p subtotal resection in 2019 complicated by post op L MCA stroke requiring decompressive craniotomy with residual R sided weakness, seizure disorder, history of DVT on terminal gauger anticoagulation who presents from home after unwitnessed fall. Developed fevers a day prior to presentation Had unwitnessed syncopal episode overnight with head trauma while on coumadin presenting with acutely worsened R sided weakness At baseline, can ambulate independently with R residual weakness, speaks approximately [address] head, CTA head/neck with no hemorrhage, midline shift, or evidence of acute territorial ischemia by CT criteria. Postoperative change from extensive left hemispheric resection and left-sided craniectomy Follows with [facility] neurosurgery, Dr Gabriel of [facility] onc Neurology on board Home Keppra increased from 1500 twice daily to 1500mg a.m. on 1750mg PM. Continue Vimpat 200 mg twice daily. MRI brain done. Noted interval development of cystic lesion in left parietal lobe, interval development of subdural fluid collection on the left with no significant mass effect or midline shift. No new enhancing lesion On 03/08/22, I discussed with neurosurgeon Dr. Trevizo. Patient should follow up with Neuro surgeon outpatient. Considering clinical improvement, can do quick tapering of dexamethasone to home dose PT/OT eval (6) Steroid dependence: Plan: Patient on 0.5mg Decadron, hydrocortisone 20mg BID at home Per Admitting team's discussion with neurosurgery, patient currently on stress dose Considering clinical improvement, will do a quick taper to home dose. Continue iv dexa 4mg q6h for now (7) COVID-19: Plan: PCR test positive 03/07/22. +Cough, congestion Saturating well on room air Supportive care Incentive spirometry No indication for remdesivir Isolation precautions (8) DVT (deep venous thrombosis): Plan: History of DVT in the past on long-term anticoagulation. INR 2.3 on admission Warfarin was initially held No evidence of hemorrhage on CT. Warfarin resumed INR is 1.6 today. Monitor Code status: FULL PCP: Carol Called and updated her Admission and Anticipated Discharge Date Admission Date: March 07, 2022 Subjective 31year old man with history of glioblastoma s/p subtotal resection in 2019 complicated by post op L MCA stroke requiring decompressive craniotomywith residual R sided weakness, seizure disorder, history of DVT on terminal gauger anticoagulation who presents from home after unwitnessed fall. Patient seen and examined. Patient has some expressive aphasia, able to communicate with few words. Denied any headache Acknowledged some dizziness on standing Acknowledged cough, congestion, sore throat Denied any shortness of breath Denies nausea, vomiting, abdominal pain, anorexia, constipation or diarrhea Denies dysuria, frequency, urgency Denies fevers or chills Physical Exam Constitutional: + well hydrated; no acute distress Eyes: PERRL, conjunctivae normal, anicteric sclerae ENMT: external ear and nose normal, oropharynx normal Respiratory: normal respiratory effort; no respiratory distress Clear to auscultation Cardiovascular: Rate/Rhythm: regular rate and regular rhythm S1 S2 Gastrointestinal (Abdomen): normal bowel sounds, soft, nontender, no hepatosplenomegaly Musculoskeletal: No pedal edema Neurologic: PERRL EOMI Right hemiparesis, some expressive aphasia, follows commands Results & Data Results & Data ([facility]) Vital Signs (Past 12 Hours) Vital Signs Temp Pulse Resp BP Pulse Ox 03/09/22 12:13 36.6 C 76 18 141/84 H 96 03/09/22 08:03 72 20 132/71 94 03/09/22 03:50 36.5 C 76 18 126/74 97 Laboratory Results Abnormal lab results 03/09/22 03/09/22 03/09/22 Range/Units 05:22 05:22 05:22 WBC 11.20 H (4.8-10.8) K/ul RDW Std Deviation 47.1 H (36.4-46.3) fL RDW Coeff of Naresh 14.7 H (11.5-14.5) % MPV 9.1 L (9.4-12.4) fL PT 17.1 H (9.0-12.0) Seconds INR 1.6 H (0.9-1.1) Glucose 120 H (70-99(Fasting)) mg/dl (1) Fall Encounter type: initial encounter Qualified Code(s): W19.XXXA - Unspecified fall, initial encounter
[2022-03-09] MEDS: WARFARIN SOD 7.5 MG TAB PO SCH (16:12)
[2022-03-09] MEDS: levETIRAcetam 250 MG TAB PO SCH (20:58)
[2022-03-10] MEDS: dexAMETHasone 4 MG in SYRINGE 0 ML IV SCH ×3 (00:09→11:47)
[2022-03-10 06:37] LABS: Hematocrit (blood only) 46.9 % (40.1-51.0); Hemoglobin 15.2 g/dl (14.0-18.0); Mean Corpuscular Hemoglobin 27.7 pg (25.0-34.0); Mean Corpuscular Hgb Conc 32.4 g/dL (32.0-36.0); Mean Corpuscular Volume 85.4 fL (80.0-100.0); Mean Platelet Volume 8.7 fL (9.4-12.4); Platelet Count 230 K/uL (130-400); RDW Coefficient of Variation 14.9 % (11.5-14.5); RDW Standard Deviation 46.3 fL (36.4-46.3); Red Blood Count 5.49 M/uL (4.63-6.08); White Blood Count 11.92 K/ul (4.8-10.8)
[2022-03-10 06:50] LABS: INR 2.4 (0.9-1.1)
[2022-03-10 06:57] LABS: BUN Creatinine Ratio 24.1 (10-20); Calcium 8.9 mg/dl (8.5-10.1); Creatinine Clr Calc Pharmacy 163.2 ml/min; Est GFR (African American) 137.8 ml/min; Est GFR (Non-African American) 118.9 ml/min; Potassium 4.3 mmol/L (3.5-5.1)
[2022-03-10] MEDS: LACOSAMIDE 50 MG TABLET PO SCH ×2 (09:54→21:24)
[2022-03-10] MEDS: PANTOprazole 40 MG TAB PO SCH (09:54)
[2022-03-10] MEDS: ASCORBIC ACID 500 MG TAB PO SCH (09:55)
[2022-03-10] MEDS: METOPROLOL SUCC 25MG EXT REL TAB PO SCH (09:55)
[2022-03-10] MEDS: levETIRAcetam 500 MG TAB PO SCH ×2 (09:55→21:24)
[2022-03-10] MEDS: CALCIUM 600MG + VIT D 400 IU TAB PO SCH ×2 (09:56→21:25)
--- NOTE | 2022-03-10 12:38 | Hospitalist Progress Note ---
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 Developed fevers a day prior to presentation Had unwitnessed syncopal episode overnight with head trauma while on coumadin presenting with acutely worsened R sided weakness At baseline, can ambulate independently with R residual weakness, speaks approximately [address] head, CTA head/neck with no hemorrhage, midline shift, or evidence of acute territorial ischemia by CT criteria. Postoperative change from extensive left hemispheric resection and left-sided craniectomy Follows with [facility] [place] neurosurgery, Dr Gabriel of [facility] onc Neurology on board Home Keppra increased from 1500 twice daily to 1500mg a.m. on 1750mg PM. Continue Vimpat 200 mg twice daily. MRI brain done. Noted interval development of cystic lesion in left parietal lobe, interval development of subdural fluid collection on the left with no significant mass effect or midline shift. No new enhancing lesion On 03/08/22, I discussed with neurosurgeon Dr. Trevizo. Patient should follow up with Neuro surgeon outpatient. Discussed with Neurologist Dr Tinoco. He discussed with Oncologist Dr Gabriel and recommended changing to 0.5mg bid of dexamethasone PT/OT eval. Rehab recommended (6) Steroid dependence: Plan: Patient on 0.5mg Decadron, hydrocortisone 20mg BID at home As above. Changed to 0.5mg decadron bid and resumed home hydrocortisone 20mg bid (7) COVID-19: Plan: PCR test positive 03/07/22. +Cough, congestion Saturating well on room air Supportive care Incentive spirometry No indication for remdesivir Isolation precautions (8) DVT (deep venous thrombosis): Plan: History of DVT in the past on long-term anticoagulation. INR 2.3 on admission Warfarin was initially held No evidence of hemorrhage on CT. Warfarin resumed INR is 2.4 today. Monitor Code status: FULL PCP: [place] Admission and Anticipated Discharge Date Admission Date: March 07, 2022 Subjective Patient seen and examined. Patient has some expressive aphasia, able to communicate with few words. Denies any headache or dizziness Acknowledged cough, congestion Denies any shortness of breath Denies nausea, vomiting, abdominal pain, anorexia, constipation or diarrhea Denies dysuria, frequency, urgency Denies fevers or chills Physical Exam Constitutional: + well hydrated; no acute distress Eyes: PERRL, conjunctivae normal, anicteric sclerae ENMT: external ear and nose normal, oropharynx normal Respiratory: normal respiratory effort, lungs clear to auscultation Cardiovascular: Rate/Rhythm: regular rate and regular rhythm S1 S2 Gastrointestinal (Abdomen): normal bowel sounds, soft, nontender, no hepatosplenomegaly Musculoskeletal: No pedal edema Neurologic: PERRL EOMI Right hemiparesis, some expressive aphasia, follows commands Results & Data Results & Data ([facility]) Vital Signs (Past 12 Hours) Vital Signs Temp Pulse Pulse Pulse Resp BP Pulse Ox 03/10/22 09:56 77 175/73 H 03/10/22 07:51 36.8 C 78 16 132/82 97 03/10/22 06:09 81 03/10/22 02:59 37.0 C 67 18 118/79 95 Laboratory Results Abnormal lab results 03/10/22 03/10/22 03/10/22 Range/Units 06:04 06:04 06:04 WBC 11.92 H (4.8-10.8) K/ul RDW Coeff of Naresh 14.9 H (11.5-14.5) % MPV 8.7 L (9.4-12.4) fL PT 24.0 H (9.0-12.0) Seconds INR 2.4 H (0.9-1.1) BUN/Creatinine Ratio 24.1 H (10-20) Glucose 120 H (70-99(Fasting)) mg/dl (1) Fall Encounter type: initial encounter Qualified Code(s): W19.XXXA - Unspecified fall, initial encounter
[2022-03-10] MEDS: WARFARIN SOD 5 MG TAB PO SCH (15:47)
[2022-03-10] MEDS: levETIRAcetam 250 MG TAB PO SCH (21:24)
[2022-03-10] MEDS: HYDROCORTISONE 10 MG TAB PO SCH (21:26)
[2022-03-10] MEDS: dexAMETHasone 1 MG TAB PO SCH (21:27)
[2022-03-11 07:23] LABS: Hematocrit (blood only) 47.9 % (40.1-51.0); Hemoglobin 15.6 g/dl (14.0-18.0); Mean Corpuscular Hemoglobin 28.5 pg (25.0-34.0); Mean Corpuscular Hgb Conc 32.6 g/dL (32.0-36.0); Mean Corpuscular Volume 87.6 fL (80.0-100.0); Mean Platelet Volume 8.8 fL (9.4-12.4); Platelet Count 248 K/uL (130-400); RDW Coefficient of Variation 14.8 % (11.5-14.5); RDW Standard Deviation 47.4 fL (36.4-46.3); Red Blood Count 5.47 M/uL (4.63-6.08)
[2022-03-11 07:39] LABS: INR 3.4 (0.9-1.1)
[2022-03-11 07:45] LABS: Calcium 8.8 mg/dl (8.5-10.1); Creatinine Clr Calc Pharmacy 149.8 ml/min; Est GFR (African American) 133.3 ml/min; Potassium 4.2 mmol/L (3.5-5.1)
[2022-03-11] MEDS: dexAMETHasone 1 MG TAB PO SCH (09:18)
[2022-03-11] MEDS: HYDROCORTISONE 10 MG TAB PO SCH ×2 (09:18→21:26)
[2022-03-11] MEDS: levETIRAcetam 500 MG TAB PO SCH ×2 (09:19→21:27)
[2022-03-11] MEDS: CALCIUM 600MG + VIT D 400 IU TAB PO SCH ×2 (09:19→21:28)
[2022-03-11] MEDS: ASCORBIC ACID 500 MG TAB PO SCH (09:20)
[2022-03-11] MEDS: METOPROLOL SUCC 25MG EXT REL TAB PO SCH (09:20)
[2022-03-11] MEDS: PANTOprazole 40 MG TAB PO SCH (09:20)
[2022-03-11] MEDS: LACOSAMIDE 50 MG TABLET PO SCH ×2 (10:40→21:43)
--- NOTE | 2022-03-11 13:38 | Hospitalist Progress Note ---
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 Developed fevers a day prior to presentation Had unwitnessed syncopal episode overnight with head trauma while on coumadin presenting with acutely worsened R sided weakness At baseline, can ambulate independently with R residual weakness, speaks approximately [address] head, CTA head/neck with no hemorrhage, midline shift, or evidence of acute territorial ischemia by CT criteria. Postoperative change from extensive left hemispheric resection and left-sided craniectomy Follows with [facility] neurosurgery and Dr Gabriel of [facility] onc Neurology on board Home Keppra increased from 1500 twice daily to 1500mg a.m. and 1750mg PM. Continue Vimpat 200 mg twice daily. MRI brain done. Noted interval development of cystic lesion in left parietal lobe, interval development of subdural fluid collection on the left with no significant mass effect or midline shift. No new enhancing lesion On 03/08/22, I discussed with neurosurgeon Dr. Trevizo. Patient should follow up with Neuro surgeon outpatient. On 03/11/22, I discussed with Neurologist Dr Tinoco. He discussed with Oncologist Dr Gabriel and recommended changing to 0.5mg bid of dexamethasone on discharge Discussed with [facility] Oncologist today Elizabeth Cheney who recommend to consider doing IV dexa while inpatient until dc. Will do iv dexa 4mg bid for now and Dr Villegas will reassess in AM PT/OT eval. Rehab recommended CM working on placement (6) Steroid dependence: Plan: Patient was on 0.5mg Decadron daily, hydrocortisone 20mg BID at home Continue hydrocortisone 20mg bid (7) COVID-19: Plan: PCR test positive 03/07/22. +Cough, congestion Saturating well on room air Supportive care Incentive spirometry No indication for remdesivir Isolation precautions (8) DVT (deep venous thrombosis): Plan: History of DVT in the past on long-term anticoagulation. INR 2.3 on admission Warfarin was initially held No evidence of hemorrhage on CT. Warfarin resumed INR is 3.4 today. Hold warfarin dose for today. Recheck tomorrow prior to eveni ng dose tomorrow Code status: FULL PCP: Carol Called and updated her Admission and Anticipated Discharge Date Admission Date: March 07, 2022 Subjective Patient seen and examined. Patient has some expressive aphasia, able to communicate with few words and answers 'yes or no' Denies any headache or dizziness Has cough, congestion Denies any shortness of breath Denies nausea, vomiting, abdominal pain, anorexia, constipation or diarrhea Denies dysuria, frequency, urgency Denies fevers or chills Still has right sided weakness Physical Exam Constitutional: + well hydrated; no acute distress Eyes: PERRL, conjunctivae normal, anicteric sclerae ENMT: external ear and nose normal, oropharynx normal Respiratory: normal respiratory effort, lungs clear to auscultation Cardiovascular: Rate/Rhythm: regular rate and regular rhythm S1 S2 Gastrointestinal (Abdomen): normal bowel sounds, soft, nontender, no hepatosplenomegaly Musculoskeletal: No pedal edema Neurologic: PERRL EOMI Right hemiparesis, some expressive aphasia, follows commands Results & Data Results & Data ([facility]) Vital Signs (Past 12 Hours) Vital Signs Temp Pulse Pulse Resp BP Pulse Ox 03/11/22 09:15 81 143/75 H 03/11/22 07:19 36.4 C L 68 20 135/83 95 03/11/22 03:13 36.5 C 60 18 154/72 H 95 Laboratory Results Abnormal lab results 03/11/22 03/11/22 03/11/22 Range/Units 06:34 06:34 06:34 WBC 11.10 H (4.8-10.8) K/ul RDW Std Deviation 47.4 H (36.4-46.3) fL RDW Coeff of Naresh 14.8 H (11.5-14.5) % MPV 8.8 L (9.4-12.4) fL PT 34.0 H (9.0-12.0) Seconds INR 3.4 H (0.9-1.1) Glucose 103 H (70-99(Fasting)) mg/dl (1) Fall Encounter type: initial encounter Qualified Code(s): W19.XXXA - Unspecified fall, initial encounter
[2022-03-11] MEDS: dexAMETHasone 4 MG in SYRINGE 0 ML IV SCH (21:26)
[2022-03-11] MEDS: levETIRAcetam 250 MG TAB PO SCH (21:28)
[2022-03-12 06:40] LABS: Hemoglobin 15.8 g/dl (14.0-18.0); Mean Corpuscular Hemoglobin 28.7 pg (25.0-34.0); Mean Corpuscular Hgb Conc 32.9 g/dL (32.0-36.0); Mean Corpuscular Volume 87.1 fL (80.0-100.0); Mean Platelet Volume 8.6 fL (9.4-12.4); Platelet Count 224 K/uL (130-400); RDW Coefficient of Variation 14.6 % (11.5-14.5); RDW Standard Deviation 46.5 fL (36.4-46.3); Red Blood Count 5.51 M/uL (4.63-6.08)
[2022-03-12 06:52] LABS: Prothrombin Time 30.3 Seconds (9.0-12.0)
[2022-03-12 07:07] LABS: BUN Creatinine Ratio 18.8 (10-20); Calcium 8.7 mg/dl (8.5-10.1); Creatinine Clr Calc Pharmacy 158.6 ml/min; Est GFR (African American) 136.5 ml/min; Est GFR (Non-African American) 117.7 ml/min; Potassium 4.4 mmol/L (3.5-5.1)
[2022-03-12] MEDS: levETIRAcetam 500 MG TAB PO SCH ×2 (08:01→21:20)
[2022-03-12] MEDS: LACOSAMIDE 50 MG TABLET PO SCH ×2 (08:01→21:18)
[2022-03-12] MEDS: CALCIUM 600MG + VIT D 400 IU TAB PO SCH ×2 (08:02→21:22)
[2022-03-12] MEDS: HYDROCORTISONE 10 MG TAB PO SCH ×2 (08:02→21:47)
[2022-03-12] MEDS: dexAMETHasone 4 MG in SYRINGE 0 ML IV SCH (08:03)
[2022-03-12] MEDS: METOPROLOL SUCC 25MG EXT REL TAB PO SCH (08:04)
[2022-03-12] MEDS: ASCORBIC ACID 500 MG TAB PO SCH (08:04)
[2022-03-12] MEDS: PANTOprazole 40 MG TAB PO SCH (08:04)
[2022-03-12] MEDS ORDERED: WARFARIN SOD 5 MG TAB PO SCH (16:00)
--- NOTE | 2022-03-12 17:27 | Hospitalist Progress Note ---
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 Developed fevers a day prior to presentation Had unwitnessed syncopal episode overnight with head trauma while on coumadin presenting with acutely worsened R sided weakness At baseline, can ambulate independently with R residual weakness, speaks approximately [address] head, CTA head/neck with no hemorrhage, midline shift, or evidence of acute territorial ischemia by CT criteria. Postoperative change from extensive left hemispheric resection and left-sided craniectomy Follows with [facility] [place] neurosurgery and Dr Gabriel of [facility] onc Neurology on board Home Keppra increased from 1500 twice daily to 1500mg a.m. and 1750mg PM. Continue Vimpat 200 mg twice daily. MRI brain done. Noted interval development of cystic lesion in left parietal lobe, interval development of subdural fluid collection on the left with no significant mass effect or midline shift. No new enhancing lesion On 03/08/22, Dr. Salas discussed with neurosurgeon Dr. Trevizo. Patient should follow up with Neuro surgeon outpatient. On 03/11/22, dr. Salas discussed with Neurologist Dr Tinoco that spoke with Oncologist Dr Gabriel and recommended changing to 0.5mg bid of dexamethasone on discharge Discussed with [facility] Oncologist today Elizabeth Cheney who recommend to consider doing IV dexa while inpatient until dc. Currently on IV dexamethasone 4mg IV BID case discussed (03/12) Dr. Bowden that agreed with titrate Dexamethasone to 2mg IV BID Will continue titrate dexamethasone slowly to his home dose 0.5 mg BID PT/OT eval. Rehab recommended CM working on placement (6) Steroid dependence: Plan: Patient was on 0.5mg Decadron daily, hydrocortisone 20mg BID at home Continue hydrocortisone 20mg bid and titrate dexamethasone (7) COVID-19: Plan: PCR test positive 03/07/22. +Cough, congestion Saturating well on room air Supportive care Incentive spirometry No indication for remdesivir Isolation precautions Clinically stable (8) DVT (deep venous thrombosis): Plan: History of DVT in the past on long-term anticoagulation. INR 2.3 on admission Warfarin was initially held No evidence of hemorrhage on CT. Warfarin resumed INR is 3 today. resumed warfarin dose for today. Continue monitor PT/INR Code status: FULL PCP: Carol Admission and Anticipated Discharge Date Admission Date: March 07, 2022 Subjective Pt was seen and examined for follow up of right side weakness and fall I was able to help to get patient off the toilet to transition to chair said that pt left side seems to improve where his strength slightly stronger said in the past when patient transition from high dose steroid to his home dose that he did not do well was concerned about the transition from the dexamethasone 4 mg to 0.5 mg; instead of a slow taper Denies any chest pain, palpitation, dizziness and SOB Review of Systems Review of Systems: All systems reviewed & are unremarkable except as noted in Subjective Physical Exam Physical Exam: General- No acute distress Head- atraumatic Eyes- PERRL, EOMI, ENT- oropharynx clear Neck- supple, no JVD Lungs- clear to auscultation Heart- regular rhythm; no murmur Abdomen- normal bowel sounds, soft, nontender Extremities- no calf tenderness Neuro- alert, oriented, PERRL, +dysarthria, ERRL, EOMI, accommodation nl, limited speech 2/2 glioblastoma at baseline, CN's II-XI intact bilaterally. R sided weakness with passive ROM only Skin- warm & dry Results & Data Results & Data ([facility]) Vital Signs (Past 12 Hours) Vital Signs Temp Pulse Pulse Resp BP Pulse Ox O2 Del Method 03/12/22 15:17 36.3 C L 78 16 161/87 H 95 Room Air 03/12/22 14:56 80 03/12/22 12:46 36.8 C 81 16 166/85 H 95 Room Air 03/12/22 08:00 Room Air 03/12/22 07:57 36.6 C 67 16 165/89 H 94 Room Air 03/12/22 07:22 96 H (1) Fall Encounter type: initial encounter Qualified Code(s): W19.XXXA - Unspecified fall, initial encounter
[2022-03-12] MEDS: dexAMETHasone 2 MG in SYRINGE 0 ML IV SCH (21:17)
[2022-03-12] MEDS: levETIRAcetam 250 MG TAB PO SCH (21:20)
[2022-03-13 07:51] LABS: INR 2.8 (0.9-1.1); Prothrombin Time 28.2 Seconds (9.0-12.0)
[2022-03-13] MEDS: CALCIUM 600MG + VIT D 400 IU TAB PO SCH (09:36)
[2022-03-13] MEDS: dexAMETHasone 2 MG in SYRINGE 0 ML IV SCH (09:36)
[2022-03-13] MEDS: HYDROCORTISONE 10 MG TAB PO SCH (09:37)
[2022-03-13] MEDS: ASCORBIC ACID 500 MG TAB PO SCH (09:37)
[2022-03-13] MEDS: levETIRAcetam 500 MG TAB PO SCH (09:39)
[2022-03-13] MEDS: PANTOprazole 40 MG TAB PO SCH (09:40)
[2022-03-13] MEDS: METOPROLOL SUCC 25MG EXT REL TAB PO SCH (09:41)
[2022-03-13] MEDS: LACOSAMIDE 50 MG TABLET PO SCH (09:57)
[2022-03-13 11:13] VITALS: O2SAT 95
[2022-03-13] MEDS: WARFARIN SOD 7.5 MG TAB PO SCH (15:28)
[2022-03-13 15:49] VITALS: BP 132/61; TEMP 97.7
[2022-03-13 16:02] VITALS: PULSE 78
--- NOTE | 2022-03-16 09:19 | Discharge Summary ---
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 Patient was at baseline up until yesterday when he developed fevers. Took Tylenol every 6 hours overnight. At some point, heard a thud and found patient lying in bathtub. Fall was unwitnessed but patient does not remember it. Does have a small cut on his lip. No loss of bowel or bladder control. Has much more profound right-sided weakness than baseline weakness as a residual deficit from left MCA stroke in 2019. At baseline, patient is able to ambulate independently and communicates clearly with and mom, despite speech being limited to approximately 20 words. Has had persistent right-sided weakness today since episode overnight. Is on long-term anticoagulation for history of DVT, and last took Coumadin last evening. Continues to have fever and chills with cough and rhinorrhea. COVID exposure over 03 March. Tested positive today in the ER. Given missed doses of steroids and Keppra in the ED. Discussed case with Dr. Trevizo of [facility] neurosurgery, who is awaiting official images to be sent but went over report and does not feel there has been a significant change since last week. Okay with patient remaining at [facility]. If no evidence of bleed on repeat CT head, okay to resume coumadin. Patient also follows with oncologist Dr. Gabriel and is on on bevacizumab. Denies any headache, chest pain, shortness of breath, nausea, vomiting, abdominal pain, dysuria, diarrhea or constipation. Admission Exam Per Admitting Provider General Appearance:WD/WN, vitals as above, NAD, sitting up in bed, pleasant, conversing at baseline Head: atraumatic, s/p L craniotomy changes Eyes:normal inspection, PERRL, conjunctivae normal, anicteric sclerae ENT: external ear and nose normal, oropharynx normal Neck: normal visual inspection, trachea midline, no thyromegaly Respiratory:normal respiratory effort, decreased breath sounds bilaterally, no wheeze, rales, rhonchi. No accessory muscle use Cardiovascular: tachycardic rate, rhythm, no murmur, normal peripheral pulses, no BLE edema. Vessels: no JVD Chest: normal inspection of chest Abdomen/GI: normal bowel sounds, soft, nontender, no hepatosplenomegaly Extremities/Musculoskeletal: no cyanosis or clubbing, extremities motor strength 5/5 Neurologic: PERRL, EOMI, accommodation nl, limited speech 2/2 glioblastoma at baseline, CN's II-XI intact bilaterally. R sided weakness with passive ROM only, 0/5 strength, 5/5 TACO on L Psychiatric:A+Ox3, flattened affect Skin: no rashes, normal color, warm/dry Principal Diagnosis (1) Fall: (2) Syncope: (3) Acute right-sided weakness: (4) Glioblastoma multiforme: (5) Seizure disorder (6) Steroid dependence: (7) COVID-19: Discharge Exam General- No acute distress Head- atraumatic Eyes- PERRL, EOMI, ENT- oropharynx clear Neck- supple, no JVD Lungs- clear to auscultation Heart- regular rhythm; no murmur Abdomen- normal bowel sounds, soft, nontender Extremities- no calf tenderness Neuro- alert, oriented, PERRL, +dysarthria, ERRL, EOMI, accommodation nl, limited speech 2/2 glioblastoma at baseline, CN's II-XI intact bilaterally. R sided weakness with passive ROM only Skin- warm & dry Discharge Data Allergies Allergy/AdvReac Type Severity Reaction Status Date / Time bee venom protein (honey bee) Allergy Unknown . Verified 08/27/20 15:17 No Known Drug Allergies Allergy Verified 08/27/20 15:17 Consultations 03/07/22 12:22 ED Decision to Admit Stat 03/07/22 14:57 Consult Neurology Routine Ordered Studies 03/07/22 09:37 CT angio head w con Stat CT angio neck with con Stat CT head/brain wo con Stat 03/07/22 15:27 CT head/brain wo con Stat 03/07/22 17:39 MR brain wo/w con Routine MR brain wo/w con CLINICAL HISTORY: Seizure activity. Aphasia. Status post fall. History of glioblastoma.. COMPARISON STUDY: 05/09/2020 TECHNIQUE: Multiplanar multisequence images of the brain were performed before and after Gadavist, 11 mL of IV contrast. Diffusion weighted imaging and ADC mapping was also performed. FINDINGS: Compared to previous examination, there has been interval development of a recurrent cystic mass lesion within the left parietal lobe. It measures approximately 3.1 cm in greatest length. However, it does not enhance following contrast administration. Diffuse surrounding edema is present. However, there is no evidence for compression upon the left lateral ventricle which demonstrates ex vacuo deformity. Cystic changes are also seen within the left temporal lobe. Again, no abnormal enhancement is demonstrated. Additionally, there has been interval development of a subdural fluid collection on the left measuring at least 11 mm. While there is effacement of the adjacent cortex, there is again no significant compression or evidence for midline shift. The right cerebral hemisphere is within normal limits with no mass lesion or edematous changes present. On postcontrast images, there is no new evidence for enhancing mass lesion. IMPRESSION: 1. Interval development of a cystic lesion within the left parietal lobe with no evidence for enhancement as described. 2. Interval development of a subdural fluid collection on the left with no significant mass effect or midline shift demonstrated. 3. No new enhancing lesions are seen. ACT 112: Negative or not required by law. Electronically signed by: Dick Ag M.D. 03/08/2022 6:10 PM Dictated:03/08/22 1233 Transcribed: 03/08/[address] head/brain wo con CLINICAL HISTORY: syncope, R-sided weakness, eval for bleed COMPARISON STUDY: 03/07/2022 CT DOSE: 614.27 mGy.cm TECHNIQUE: Standard CT of the Brain was performed without IV contrast. A dose lowering technique was utilized adhering to the principles of ALARA. FINDINGS: Compared to the previous examination from earlier on the same date, there is no significant interval change. Stable postsurgical changes are again seen involving the left cerebral hemisphere with encephalomalacia present. C hronic subdural hygroma is again noted. There is no evidence for interval hemorrhage since earlier study. IMPRESSION: 1. Compared to the earlier examination, there is no significant interval change. 2. Stable postsurgical changes are again noted with no evidence for interval hemorrhage. ACT 112: Negative or not required by law. Electronically signed by: Dick Ag M.D. 03/08/2022 8:09 AM Dictated:03/08/22 0803 Transcribed: 03/08/[address] OF THE BRAIN; CT ANGIOGRAM OF THE BRAIN; CT ANGIOGRAM OF THE NECK CLINICAL HISTORY: Strokelike symptoms. COMPARISON STUDY: CT of the brain dated 05/23/2020. MRI of the brain dated 05/09/2020. TECHNIQUE: Unenhanced axial CT scan of the brain is performed. Subsequently, f ollowing the IV administration of 120 of Optiray 320, CT angiogram of the head and neck was performed from the aortic arch to the vertex. Images are reviewed in the axial, sagittal, and coronal planes. 3-D MIPS images are created and assessed. IV contrast was administered without complication. All measurements were calculated based on NASCET criteria. A dose lowering technique was utilized adhering to the principles of ALARA. CT DOSE: 1249.86 mGy.cm FINDINGS: Brain parenchyma: There are large foci of encephalomalacia within the left frontal, parietal, and temporal lobes consistent with previous surgical resection. There is associated ex vacuo dilatation of the left lateral ventricle. A peripherally calcified cystic lesion. Centered in the left please ganglia/ rivas radiata measures 3.5 x 2.2 cm. A CSF attenuation extra-axial collection along the left craniectomy defect measures up to 12 mm in diameter. This causes minimal mass effect on the subjacent cortical sulci and likely rese nts a chronic subdural hygroma. There is volume loss in left thalamus as well as Wallerian degeneration of the left magen. There is no acute hemorrhage, midline shift, or evidence of acute territorial ischemia by CT criteria. There is no CT evidence of enhancing mass lesion on the angiogram phase images. The ventricles, sulci, and cisterns are normal in configuration. Morris-white matter differentiat ion is preserved. Thoracic aorta: Visualized portions of the thoracic aorta are normal in caliber. The aortic arch demonstrates standard 3-vessel anatomy. Right carotid arterial system: The right common carotid artery is widely patent, as are the right internal and external carotid arteries. Left carotid arterial system: The left common carotid artery is widely patent, as are the left internal and external carotid arteries. Vertebral arteries: Intervertebral arteries are widely patent bilaterally and codominant. Subclavian arteries: Widely patent bilaterally. Intracranial vasculature: The internal carotid arteries are patent at the skull base, as are the anterior and middle cerebral arteries bilaterally. The vertebrobasilar system and posterior cerebral arteries are widely patent. There is a small right posterior communicating artery. The vertebral arteries are codominant. There is no aneurysm, high-grade stenosis, or focal vessel cut off seen throughout the intracranial circulation. Jugular veins: Patent bilaterally. Dural sinuses: Patent. Lung apices: Partially visualized upper lobe lung parenchyma appears clear. Soft tissues: The visualized pharyngeal soft tissues are normal in appearance noting angiographic phase technique. The oropharyngeal airway appears widely patent. The salivary and thyroid glands are normal in appearance. No cervical lymphadenopathy is seen. Skeletal structures: There is postoperative change from left-sided craniectomy. No destructive calvarial lesion is identified. The cervical spine is within normal limits. Orbits: The bony orbits are intact. Orbital contents are normal as visualized. Sinuses and mastoids: The paranasal sinuses are clear. The mastoid air cells are well pneumatized. IMPRESSION: 1. There is no hemorrhage, midline shift, or evidence of acute territorial ischemia by CT criteria. 2. Postoperative change from extensive left hemispheric resection and left-sided craniectomy as above. 3. There is a pathologically indeterminant peripherally calcified cystic lesion in the left hemisphere as above. There is no CT evidence of residual enhancing lesion. Correlate with any prior outside imaging studies. 4. 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 There is only minimal associated mass effect. Correlate with any prior outside imaging studies. 5. Unremarkable CT angiogram of the brain. 6. Unremarkable CT angiogram of the neck. ACT 112: Negative or not required by law. Electronically signed by: Oumar Pulido M.D. 03/07/2022 10:03 AM Dictated:03/07/22 0952 Transcribed: 03/07/[address] OF THE BRAIN; CT ANGIOGRAM OF THE BRAIN; CT ANGIOGRAM OF THE NECK CLINICAL HISTORY: Strokelike symptoms. COMPARISON STUDY: CT of the brain dated 05/23/2020. MRI of the brain dated 05/09/2020. TECHNIQUE: Unenhanced axial CT scan of the brain is performed. Subsequently, following the IV administration of 120 of Optiray 320, CT angiogram of the head and neck was performed from the aortic arch to the vertex. Images are reviewed in the axial, sagittal, and coronal planes. 3-D MIPS images are created and assessed. IV contrast was administered without complication. All measurements were calculated based on NASCET criteria. A dose lowering technique was utilized adhering to the principles of ALARA. CT DOSE: 1249.86 mGy.cm FINDINGS: Brain parenchyma: There are large foci of encephalomalacia within the left frontal, parietal, and temporal lobes consistent with previous surgical resection. There is associated ex vacuo dilatation of the left lateral ventricle. A peripherally calcified cystic lesion. Centered in the left please ganglia/ rivas radiata measures 3.5 x 2.2 cm. A CSF attenuation extra-axial collection along the left craniectomy defect measures up to 12 mm in diameter. 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 There is volume loss in left thalamus as well as Wallerian degeneration of the left magen. There is no acute hemorrhage, midline shift, or evidence of acute territorial ischemia by CT criteria. There is no CT evidence of enhancing mass lesion on the angiogram phase images. The ventricles, sulci, and cisterns are normal in configuration. Morris-white matter differentiation is preserved. Thoracic aorta: Visualized portions of the thoracic aorta are normal in caliber. The aortic arch demonstrates standard 3-vessel anatomy. Right carotid arterial system: The right common carotid artery is widely patent, as are the right internal and external carotid arteries. Left carotid arterial system: The left common carotid artery is widely patent, as are the left internal and external carotid arteries. Vertebral arteries: Intervertebral arteries are widely patent bilaterally and codominant. Subclavian arteries: Widely patent bilaterally. Intracranial vasculature: The internal carotid arteries are patent at the skull base, as are the anterior and middle cerebral arteries bilaterally. The vertebrobasilar system and posterior cerebral arteries are widely patent. There is a small right posterior communicating artery. The vertebral arteries are codominant. There is no aneurysm, high-grade stenosis, or focal vessel cut off seen throughout the intracranial circulation. Jugular veins: Patent bilaterally. Dural sinuses: Patent. Lung apices: Partially visualized upper lobe lung parenchyma appears clear. Soft tissues: The visualized pharyngeal soft tissues are normal in appearance noting angiographic phase technique. The oropharyngeal airway appears widely patent. The salivary and thyroid glands are normal in appearance. No cervical lymphadenopathy is seen. Skeletal structures: There is postoperative change from left-sided craniectomy. No destructive calvarial lesion is identified. The cervical spine is within normal limits. Orbits: The bony orbits are intact. Orbital contents are normal as visualized. Sinuses and mastoids: The paranasal sinuses are clear. The mastoid air cells are well pneumatized. IMPRESSION: 1. There is no hemorrhage, midline shift, or evidence of acute territorial ischemia by CT criteria. 2. Postoperative change from extensive left hemispheric resection and left-sided craniectomy as above. 3. There is a pathologically indeterminant peripherally calcified cystic lesion in the left hemisphere as above. There is no CT evidence of residual enhancing lesion. Correlate with any prior outside imaging studies. 4. 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 There is only minimal associated mass effect. Correlate with any prior outside imaging studies. 5. Unremarkable CT angiogram of the brain. 6. Unremarkable CT angiogram of the neck. ACT 112: Negative or not required by law. Electronically signed by: Oumar Pulido M.D. 03/07/2022 10:03 AM Dictated:03/07/22 0952 Transcribed: 03/07/[address] OF THE BRAIN; CT ANGIOGRAM OF THE BRAIN; CT ANGIOGRAM OF THE NECK CLINICAL HISTORY: Strokelike symptoms. COMPARISON STUDY: CT of the brain dated 05/23/2020. MRI of the brain dated 05/09/2020. TECHNIQUE: Unenhanced axial CT scan of the brain is performed. Subsequently, following the IV administration of 120 of Optiray 320, CT angiogram of the head and neck was performed from the aortic arch to the vertex. Images are reviewed in the axial, sagittal, and coronal planes. 3-D MIPS images are created and assessed. IV contrast was administered without complication. All measurements were calculated based on NASCET criteria. A dose lowering technique was utilized adhering to the principles of ALARA. CT DOSE: 1249.86 mGy.cm FINDINGS: Brain parenchyma: There are large foci of encephalomalacia within the left frontal, parietal, and temporal lobes consistent with previous surgical resection. There is associated ex vacuo dilatation of the left lateral ventricle. A peripherally calcified cystic lesion. Centered in the left please ganglia/ rivas radiata measures 3.5 x 2.2 cm. A CSF attenuation extra-axial collection along the left craniectomy defect measures up to 12 mm in diameter. 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 There is volume loss in left thalamus as well as Wallerian degeneration of the left magen. There is no acute hemorrhage, midline shift, or evidence of acute territorial ischemia by CT criteria. There is no CT evidence of enhancing mass lesion on the angiogram phase images. The ventricles, sulci, and cisterns are normal in configuration. Morris-white matter differentiation is preserved. Thoracic aorta: Visualized portions of the thoracic aorta are normal in caliber. The aortic arch demonstrates standard 3-vessel anatomy. Right carotid arterial system: The right common carotid artery is widely patent, as are the right internal and external carotid arteries. Left carotid arterial system: The left common carotid artery is widely patent, as are the left internal and external carotid arteries. Vertebral arteries: Intervertebral arteries are widely patent bilaterally and codominant. Subclavian arteries: Widely patent bilaterally. Intracranial vasculature: The internal carotid arteries are patent at the skull base, as are the anterior and middle cerebral arteries bilaterally. The verteb robasilar system and posterior cerebral arteries are widely patent. There is a small right posterior communicating artery. The vertebral arteries are codominant. There is no aneurysm, high-grade stenosis, or focal vessel cut off seen throughout the intracranial circulation. Jugular veins: Patent bilaterally. Dural sinuses: Patent. Lung apices: Partially visualized upper lobe lung parenchyma appears clear. Soft tissues: The visualized pharyngeal soft tissues are normal in appearance noting angiographic phase technique. The oropharyngeal airway appears widely patent. The salivary and thyroid glands are normal in appearance. No cervical lymphadenopathy is seen. Skeletal structures: There is postoperative change from left-sided craniectomy. No destructive calvarial lesion is identified. The cervical spine is within normal limits. Orbits: The bony orbits are intact. Orbital contents are normal as visualized. Sinuses and mastoids: The paranasal sinuses are clear. The mastoid air cells are well pneumatized. IMPRESSION: 1. There is no hemorrhage, midline shift, or evidence of acute territorial ischemia by CT criteria. 2. Postoperative change from extensive left hemispheric resection and left-sided craniectomy as above. 3. There is a pathologically indeterminant peripherally calcified cystic lesion in the left hemisphere as above. There is no CT evidence of residual enhancing lesion. Correlate with any prior outside imaging studies. 4. 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 There is only minimal associated mass effect. Correlate with any prior outside imaging studies. 5. Unremarkable CT angiogram of the brain. 6. Unremarkable CT angiogram of the neck. ACT 112: Negative or not required by law. Electronically signed by: Oumar Pulido M.D. 03/07/2022 10:03 AM Dictated:03/07/22 0952 Transcribed: 03/07/2252 XR chest 1V portable CLINICAL HISTORY: Stroke Like Symptoms. Evaluate cardiopulmonary status COMPARISON STUDY: No previous studies for comparison. TECHNIQUE: 1 view of the chest FINDINGS: Single frontal view of the chest demonstrates the cardiomediastinal silhouette to be within normal limits. There is a decreased inspiratory effort with elevation of the hemidiaphragms and crowding of the bronchovascular markings at the lung bases and centrally. The lungs are clear of alveolar opacities. There is no evidence for pleural effusion. There is no evidence for vascular congestion. There is no acute osseous pathology. IMPRESSION: 1. There is a decreased inspiratory effort with otherwise no acute chest disease. ACT 112: Negative or not required by law. Electronically signed by: Dick Ag M.D. 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 Developed fevers a day prior to presentation Had unwitnessed syncopal episode overnight with head trauma while on coumadin presenting with acutely worsened R sided weakness At baseline, can ambulate independently with R residual weakness, speaks approximately [address] head, CTA head/neck with no hemorrhage, midline shift, or evidence of acute territorial ischemia by CT criteria. Postoperative change from extensive left hemispheric resection and left-sided craniectomy Follows with [facility] neurosurgery and Dr Gabriel of [facility] onc Neurology on board Home Keppra increased from 1500 twice daily to 1500mg a.m. and 1750mg PM. Continue Vimpat 200 mg twice daily. MRI brain done. Noted interval development of cystic lesion in left parietal lobe, interval development of subdural fluid collection on the left with no significant mass effect or midline shift. No new enhancing lesion On 03/08/22, Dr. Salas discussed with neurosurgeon Dr. Trevizo. Patient should follow up with Neuro surgeon outpatient. On 03/11/22, dr. Salas discussed with Neurologist Dr Tinoco that spoke with Oncologist Dr Gabriel and recommended changing to 0.5mg bid of dexamethasone on discharge Discussed with [facility] Oncologist today Elizabeth Cheney who recommend to consider doing IV dexa while inpatient until dc. Currently on IV dexamethasone 4mg IV BID case discussed (03/12) Dr. Bowden that agreed with titrate Dexamethasone to 2mg IV BID Will continue titrate dexamethasone slowly to 1 mg BID to 0.5 mg BID. He will remain on that until seeing his Oncology PT/OT eval. Rehab recommended Plan to transition to rehab today (6) Steroid dependence: Patient was on 0.5mg Decadron daily, hydrocortisone 20mg BID at home Continue hydrocortisone 20mg bid and titrate dexamethasone (7) COVID-19: PCR test positive 03/07/22. +Cough, congestion Saturating well on room air Supportive care Incentive spirometry No indication for remdesivir Isolation precautions Clinically stable (8) DVT (deep venous thrombosis): History of DVT in the past on long-term anticoagulation. INR 2.3 on admission Warfarin was initially held No evidence of hemorrhage on CT. Warfarin resumed INR is 2.8 today. resumed warfarin dose for today. Continue monitor PT/INR Code status: FULL PCP: Carol Total Time Total Time Spent Total Time Spent (In Minutes): 35 minutes Discharge Plan Discharge Items Patient Disposition: Transfer Inpatient Rehab Fac Reason For Visit: STROKE EVAL, HISTORY OF GLIOBLASTOMA Discharge Diagnosis: (1) Fall: (2) Syncope: (3) Acute right-sided weakness: (4) Glioblastoma multiforme: (5) Seizure disorder (6) Steroid dependence: (7) COVID-19: Activity: Resume your previous activity Non-emergency contact: Primary Care Provider, Surgeon, Neurologist and Oncologist Call non-emergency contact if: you have any medication questions Follow-up/Referrals: Lenard Medina MD [Primary Care Provider] - Diet: Heart Healthy Addtl Attending Provider Instructions: Follow up with your primary care provider once discharge from rehab Follow up with your Neurosurgery provider at [facility] Follow up with neurology in 6 -8 weeks Follow up with your oncology provider Continue physical and occupational therapy Continue coumadin and monitor your Check PT/INR Continue practice social distance and wear your mask Fall precaution continue seizure precaution Continue Keppra 1500 mg in the morning and 1750 mg in the evening taper Dexamethasone 1mg twice a day for 1 day, then transition to dexamethasone 0.5mg twice a day until appointment with Oncology Home Isolation COVID-19 Instructions The following information about Home Isolation is from the CDC Website: https://www.cdc.gov/coronavirus/2019-ncov/hcp/scmqodfp-perkkrf-fksskv.html Stay home except to get medical care People who are mildly ill with COVID-19 are able to isolate at home during their illness. You should restrict activities outside your home, except for getting medical care. Do not go to work, school, or public areas. Avoid using public t ransportation, ride-sharing, or taxis. Separate yourself from other people and animals in your home People: As much as possible, you should stay in a specific room and away from other people in your home. Also, you should use a separate bathroom, if available. Animals: You should restrict contact with pets and other animals while you are sick with COVID-19, just like you would around other people. Although there have not been reports of pets or other animals becoming sick with COVID-19, it is still recommended that people sick with COVID-19 limit contact with animals until more information is known about the virus. When possible, have another member of your household care for your animals while you are sick. If you are sick with COVID-19, avoid contact with your pet, including petting, snuggling, being kissed or licked, and sharing food. If you must care for your pet or be around animals while you are sick, wash your hands before and after you interact with pets and wear a face mask. Call ahead before visiting your doctor If you have a medical appointment, call the healthcare provider and tell them that you have or may have COVID-19. This will help the healthcare providers office take steps to keep other people from getting infected or exposed. Wear a face mask You should wear a face mask when you are around other people (e.g., sharing a room or vehicle) or pets and before you enter a healthcare providers office. If you are not able to wear a face mask (for example, because it causes trouble breathing), then people who live with you should not stay in the same room with you, or they should wear a face mask if they enter your room. Cover your coughs and sneezes Cover your mouth and nose with a tissue when you cough or sneeze. Throw used tissues in a lined trash can. Immediately wash your hands with soap and water for at least 20 seconds or, if soap and water are not available, clean your hands with an alcohol-based hand gas appliance installer that contains at least 60% alcohol. Clean your hands often Wash your hands often with soap and water for at least 20 seconds, especially after blowing your nose, coughing, or sneezing; going to the bathroom; and before eating or preparing food. If soap and water are not readily available, use an alcohol-based hand gas appliance installer with at least 60% alcohol, covering all surfaces of your hands and rubbing them together until they feel dry. Soap and water are the best option if hands are visibly dirty. Avoid touching your eyes, nose, and mouth with unwashed hands. Avoid sharing personal household items You should not share dishes, drinking glasses, cups, eating utensils, towels, or bedding with other people or pets in your home. After using these items, they should be washed thoroughly with soap and water. Clean all high-touch surfaces everyday High touch surfaces include counters, tabletops, doorknobs, bathroom fixtures, toilets, phones, keyboards, tablets, and bedside tables. Also, clean any surfaces that may have blood, stool, or body fluids on them. Use a household cleaning spray or wipe, according to the label instructions. Labels contain instructions for safe and effective use of the cleaning product including precautions you should take when applying the product, such as wearing gloves and making sure you have good ventilation during use of the product. Monitor your symptoms Seek prompt medical attention if your illness is worsening (e.g., difficulty breathing).Beforeseeking care, call your healthcare provider and tell them that you have, or are being evaluated for, COVID-19. Put on a face mask before you enter the facility. These steps will help the healthcare providers office to keep other people in the office or waiting room from getting infected or exposed. Ask your healthcare provider to call the local or state health department. Persons who are placed under active monitoring or facilitated self- monitoring should follow instructions provided by their local health department or occupational health professionals, as appropriate. When working with your local health department check their available hours. If you have a medical emergency and need to call 911, notify the dispatch personnel that you have, or are being evaluated for COVID-19. If possible, put on a face mask before emergency medical services arrive. Discontinuing home isolation Patients with confirmed COVID-19 should remain under home isolation precautions until the risk of secondary transmission to others is thought to be low. The decision to discontinue home isolation precautions should be made on a [id number] basis, in consultation with healthcare providers and state and local health departments. Coronavirus disease 2019 (COVID-19) is a virus that causes a respiratory illness. It is caused by a coronavirus called 2019 novel coronavirus (2019- nCoV). There are many types of coronavirus. Coronaviruses are a very common cause of bronchitis. They may sometimes cause lung infection(pneumonia). Symptoms can range from mild to severe respiratory illness. These viruses are also foundin some animals. COVID-19 was first found in people in [facility], in late 2019. In 2020, several cases of COVID-19 have been confirmed in the [place] Public health officials are working to find the source. How the virus spreads is not yet fully known. It may be spread through droplets of fluid that a person coughs or sneezes into the air. It may be spread if you touch a surface with virus on it, such as a handle or object, and then touch your mouth. What are the symptoms of COVID-19? Some people have no symptoms or mild symptoms. Symptoms may appear 2 to 14 days after contact with the virus. Symptoms can include: Fever Coughing Trouble breathing What are possible complications from COVID-19? In many cases, this virus can cause infection (pneumonia) in both lungs. In some cases, this can cause . How is COVID-19 diagnosed? Your healthcare provider will ask about your symptoms. He or she will also ask about your recent travel and contact with sick people. Testing for the virus is only done through the CDC. If yourhealthcare provider thinks you may have COVID- 19, he or she will work with your local health department and the CDC on testing. Follow all instructions from your healthcare provider. COVID-19 is diagnosed by: Nasal and throat swab. A cotton-tipped swab is wiped inside your nose or throat. This is done to check for viruses in your nasal mucus. Sputum culture. A small sample of mucus coughed from your lungs (sputum) is collected if you have a cough. It is checked for the virus. How is COVID-19 treated? There is currently no medicine to treat the virus. Treatment is done to help your body while it fights the virus. This is known as supportive care. Supportive care may include: Pain medicine. These include acetaminophen and ibuprofen. They are used to help ease pain and reduce fever. Bed rest. This helps your body fight the illness. For severe illness, you may need to stay in the hospital. Care during severe illness may include: IV (intravenous) fluids.These are given through a vein to help keep your body hydrated. Oxygen. Supplemental oxygen or ventilation with a breathing machine (ventilator) may be given. This is done to keep enough oxygen in your body. Are you at risk for COVID-19? If youve been to a place where people have been sick with this virus, you are at risk for infection. You are at risk if you: Recently traveled to an affected area Had contact with a sick person who recently traveled to this area Had contact with a person who was diagnosed with COVID-19 How can COVID-19 be prevented? There is no vaccine yet. The best prevention is to not have contact with the virus. The CDC advises that people should not travel to areas where there are COVID-19 outbreaks right now for any reason that is not urgent. To help prevent spreading the infection, wash your hands often, or use an alcohol-basedhand gas appliance installer. If you are in an area with COVID-19: Wash your hands often. Or use an alcohol-based hand gas appliance installer often. Only touch your eyes, nose, or mouth with clean hands. Dont have contact with people who are sick. Follow local instructions about being in public. For example, you may be told to not use public transport for a period of time. Stay away from markets that have live or animals. Wash your hands after touching any animals. Don't touch animals that may be sick. Dont share eating or drinking tools with sick people. Dont kiss someone who is sick. Clean surfaces often with disinfectant. If you were in an area with COVID-19 in the last 14 days: Call your healthcare provider. He or she can talk with local health staff to see what action may be needed. Follow all instructions from your provider. Take your temperature every morning and evening for at least 14 days. This is to check for fever. Keep a record of the readings. Keep watch for symptoms of the virus. Tell your provider right away if you have symptoms. If you were in an area with COVID-19 and have a fever or other symptoms: Dont panic. Keep in mind that other illnesses can cause similar symptoms. Stay away from work, school, and public places. Limit physical contact with family members. Don't kiss anyone or share eating or drinking utensils. Clean surfaces you touch with disinfectant. This is to help prevent the virus from spreading. Call your healthcare provider. Explain that you have been exposed to COVID-19 and have symptoms. Do this before going to any hospital. Wait for instructions. Keep in mind that healthcare staff may wear protective equipment such as masks, gowns, gloves, and eye protection. You may be put in a separate room. This is to prevent the possible virus from spreading. Tell the healthcare staff about recent travel. This includes local travel on public transport. Staff may need to find other people you have been in contact with. Follow all instructions the healthcare staff give you. If you have been diagnosed with COVID-19 Follow all instructions from your healthcare provider. Dont leave your home, except to get medical care. Call your healthcare providers office before going. They can prepare and give you instructions. This will help prevent the virus from spreading. Dont go to work, school, or public areas. Dont use public transport or taxis. Stay away from other people in your home. Have them wear face masks around you. Dont share household items or food. Wear a face mask if you can. This includes at home or in a medical facility. Cover your face with a tissue when you cough or sneeze. Throw the tissue away. Wash your hands. Wash your hands often. Caregivers should: Follow all instructions from healthcare staff. Wear a face mask and protective clothing as advised. Wash hands often. Keep track of the sick persons symptoms. Clean surfaces, fabrics, and laundry thoroughly. Keep other people away from the sick person. When to call your healthcare provider Call your healthcare provider: If youve recently traveled and have symptoms If you have been diagnosed with COVID-19 and your symptoms are worse To learn more To find out more about COVID-19, visit the CDC website at www.cdc.gov/coronavirus/2019-ncov/index.html. [employer]. [address] [place] [address]. All rights reserved. This information is not intended as a substitute for professional medical care. Always follow your healthcare professional's instructions. This information has been adapted from [employer] Pending Studies at Discharge: No Stand-Alone Forms: My [facility] Skilled Items Patient informed of condition?: Yes DNR: No Discharge Level of Care: Acute rehab Communicable Disease: Yes Discharge Prognosis: Stable Lines: None Urinary Catheter: No Medications and DC Order Prescriptions: New levetiracetam [Keppra] 250 mg Tablet 250 mg PO QPM 30 Days Qty: 30 0RF Continued lacosamide 200 mg tablet 200 mg PO BID levetiracetam 500 mg tablet 1,500 mg PO BID acetaminophen [Tylenol Extra Strength] 500 mg tablet 500 mg PO Q6H PRN (Reason: Fever Or Pain) prochlorperazine maleate [Compazine] 10 mg tablet 10 mg PO Q6H PRN (Reason: Nausea) ondansetron HCl 8 mg tablet 8 mg PO Q8H PRN (Reason: Nausea) hydrocortisone 20 mg tablet 20 mg PO BID metoprolol succinate 50 mg tablet extended release 24 hr 75 mg PO DAILY omeprazole 40 mg capsule,delayed release(DR/EC) 40 mg PO DAILY warfarin 5 mg tablet 5 mg PO MOTUWEFRSA@0900 warfarin 5 mg tablet 7.5 mg PO SUTH@0900 calcium carbonate-vitamin D3 600 mg-20 mcg (800 unit) Tablet 1 tab PO BID Changed dexamethasone 1 mg tablet 0.5 mg PO UD 30 Days Qty: 30 0RF Rx Instructions: Take 1 mg twice a day x1 day, then continue 0.5mg twice until appt with hem/onc Discontinued enoxaparin [Lovenox] 80 mg/0.8 mL syringe 80 mg subcut Q12H Discharge Orders: Discharge Order (Routine); Ordered 03/13/22 Ordered By: Kari Villegas Admission Data Admit Date/Time: 03/07/22 13:11 Attending Provider: Kari Villegas Admit Provider: Samantha Humphreys Primary Care Provider: Lenard Medina Other Providers: Samantha Humphreys ; Ashkan Tinoco ; [facility] ; Pamela Salas I. Other Interventions: Discharge Summary Assessment (RN) Last Done: 03/13/22 15:57
== END 2022-03-13 17:11 | DRG 91 ==
LOC: ED 09:26 → 2E 13:11 → SUATTDRO 13:11 → 2E 14:25
DX: Z86.718 Personal history of other venous thrombosis and embolism; C71.2 Malignant neoplasm of temporal lobe; Z79.01 Long term (current) use of anticoagulants; U07.1 COVID-19; Z91.030 Bee allergy status; R29.6 Repeated falls; G40.909 Epilepsy, unspecified, not intractable, without status epilepticus; R47.01 Aphasia; Z79.52 Long term (current) use of systemic steroids; I69.351 Hemiplegia and hemiparesis following cerebral infarction affecting right dominant side; C71.1 Malignant neoplasm of frontal lobe

== ENCOUNTER 2023-07-02 14:28 | Inpatient (IN) ==
[2023-07-02 14:54] VITALS: TEMP 98.2
[2023-07-02] MEDS ORDERED: PROCHLORPERAZINE 1 ML IV ONE (14:58)
[2023-07-02] MEDS ORDERED: HYDROmorphone INJ 1 MG/ML SYRINGE IV STA (14:58)
[2023-07-02] MEDS ORDERED: HYDROCORTISONE SOD SUCCINATE 100 MG/2 ML VIAL IV STA (14:58)
[2023-07-02] MEDS ORDERED: diphenhydrAMINE 50 MG/ML VIAL IV STA (14:58)
[2023-07-02] MEDS ORDERED: dexAMETHasone**PF** 10 MG/ML VIAL IV ONE ×2 (14:58→17:07)
--- NOTE | 2023-07-02 15:02 | Emergency Department Note ---
Impression & Plan Glioblastoma multiforme, Vasogenic edema, Intracranial hemorrhage, Intractable nausea and vomiting ED Provider Note Name: TREY ALLRED Age: 33 Sex: Male Arrives Via: Ambulance Informant: Patient (poor historian due to weakness and vomiting), , mother in room ED Provider: Keyon Luis MD Chief Complaint: Vomiting Impression: As per impression above Medical Decision Makin-year-old male with a 3-year history of glioblastoma status post previous treatments including craniotomy and radiation/chemo. Over the last several months it becomes clear that no further medical treatment was going to cure things and thus there is been a focus on holistic approach and using steroids and other medications as needed for symptoms. 3 weeks ago patient with a nausea vomiting episode and since then noting increasing swelling of craniotomy site. This morning rapidly worsening nausea vomiting and weakness. Unable to control with medications at home. Arrives to the ER patient is weak he is awake though somewhat out of it as well as dry heaving/vomiting. Complaining of a headache on top of this. He is given a dose of narcotic along with Benadryl/Compazine for nausea control and furthermore I gave him IV Keppra as he had not been able to keep this morning medications down. Laboratory work-up obtained including an INR of 2.7. A CT of the head without contrast was obtained given the findings which reveals extensive asymmetric edema throughout the left side of the brain causing herniation through the craniotomy site. He furthermore has multiple small areas of bleed. I discussed the findings with the patient's and family and had a lengthy discussion regarding patient's wishes and goals of care. At this point is quite clear that patient would not want extreme interventions and would not wish to be transferred for neurosurgical capabilities nor would he want to be intubated or kept on life support. It is very clear that the patient's wishes and the family's wishes are that patient is kept comfortable and avoiding seizures would be optimal. With that in mind I offered hospitalization at this location for comfort care measures and further palliative care discussions. This is the wish of the family and feels that this would be the wish of the patient. I did opt to give the patient dose of vitamin K given the INR. That said the small bleeds and no indication for surgery would hold off on Kcentra at this time this was discussed with clinical pharmacist who agreed with this plan. Family is also agreeable to giving vitamin K. Hospitalist was consulted for further management and I reviewed my discussions at length with them. Triage/Nursing Notes reviewed by Me External Chart Review by me: Extensive review of previous visits and discharge summaries by me. Differential:Gastroenteritis, intracranial hemorrhage, edema, metastasis, infarction, electrolyte imbalance, meningitis, many other pathologies considered Vital Signs: reviewed and remarkable for hypertensive on arrival did trend down as patient started feeling better Interventions: Dilaudid 1 mg IV, Benadryl 25 mg IV, Compazine 5 mg IV, normal saline IV, Keppra 2 g IV, Vit K 5 mg IV Labs:ED labs Reviewed by me and remarkable for no significant abnormalities Imaging:CT of the head as per my informal interpretation shows extensive edema of the left side of brain extending through craniotomy site. There are multiple small areas of hemorrhage noted throughout as well. This was confirmed by radiologist Cardiac/Tele Monitoring: Cardiac Monitoring: An Order was placed for continuous cardiac monitoring. The monitor shows a rate of 90 with a normal sinus rhythm. Consults:Dr [facility] Hospitalist service Plan: Disposition:Hospitalization Condition: Critical History of Present Illness: 33-year-old male arrives for evaluation of nausea vomiting. Patient with a history of glioblastoma for which she has had 3 years. He has undergone extensive treatments previously including craniotomy. He has been on symptomatic and holistic approach over the last few months. 3 weeks ago had a gastroenteritis-like event and has had to be on Decadron since then due to nausea and some swelling at the craniotomy site. Patient rapidly worsened this morning with nausea vomiting and increasing headache. Increasing confusion as well. Brought in by family for evaluation. Patient has not been able to have any of his morning medications. High risk of seizing as per family. Past Medical History: Glioblastoma, seizures Home Medications:See Below Allergies: Bees Vitals:Blood Pressure: 200/105, Pulse 105, RR 22, T 36.8C, O2 96% on RA Physical Exam: GENERAL: Patient is unwell appearing appearing and in moderate distress. Patient is uncomfortable and periodically dry heaving HEAD: Previous craniotomy site over left scalp without skull in place. Reportedly per family this is not sunken and as it usually is. RESPIRATORY: Mild tachypnea though no dyspnea. Clear to auscultation and equal bilaterally. CARDIOVASCULAR: Tachycardic.No murmur appreciated. GASTROINTESTINAL: Abdomen soft, non-tender, no peritonitis. EXTREMITIES: Weakly moves extremities on left pulses intact. Edema all extremities NEUROLOGIC: Patient is awake though somewhat disoriented. Does not move right side though is moving left some. SKIN: No rash, no jaundice, no diaphoresis. PSYCH: Appropriate GCS: 15 ED Course: Times/Reassessments: Many repeat evaluations of patient throughout the stay and discussions with family. Following medications he is appearing much more comfortable but is increasingly obtunded/somnolent. Critical Care: I have personally spent 40 minutes of critical care time in the direct management of this patient. End-of-life discussions in the setting of acute vasogenic edema of brain and intracranial hemorrhages due to glioblastoma. This was a life/limb threatening event. This 40 minutes is in excess of all separately billable procedures. 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 in 2019, required decompressive craniotomy, has residual R sided weakness Acute right-sided weakness Fall Expressive aphasia DVT (deep venous thrombosis) (06/15/20) h/o DVT on long-term anticoaguation Stroke (05/30/20) Seizures (~02/2020) Surgical History H/O craniotomy (05/29/20) History of wisdom tooth extraction Family History Grandfather (Paternal) Diabetes Mother Hypercholesterolemia Denies family history of Ovarian cancer Prostate cancer Myocardial infarction Breast cancer Colorectal cancer Social History (Updated 07/02/23 @ 18:59 by Jigna Corbett PA-C) Smoking Status: Never smoker Second Hand Exposure: No; Do You Dip or Chew Tobacco: No (quit in at onset of illness in May); Hx Alcohol Use: No Hx Substance Use: No Preferred Language: Sudanese Communication Ability: Impaired Communication Ability Comment: expressive aphagia Visual Impairment: No Limitations Hearing Ability: Normal [place] Planter Required: No Beliefs That Will Affect Care: None marital status: Current Living Situation: Spouse Current Living Situation Comment: lives at home with and son current occupational status: employed 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: "expecting" in December Feels Safe at Home: Yes Safety Concerns: Feels Safe At This Time Childhood Exposure to Second-Hand Smoke: No Diet: regular caffeine: Yes (soda once per day and coffee with meals) during the past year weight has: remained stable Dental Care, Regularly: Yes Physical Activity Frequency: 1-2 Times per Week Physical Activity Frequency Comment: resides inpatient at [facility] Seatbelt Use: always Sunscreen Use: Yes Assistive Devices: Walker and Wheelchair Allergies Allergies Allergy/AdvReac Type Severity Reaction Status Date / Time bee venom protein (honey bee) Allergy Unknown . Verified 08/27/20 15:17 No Known Drug Allergies Allergy Verified 08/27/20 15:17 Home Meds Home Medications Medication Instructions Recorded Confirmed lacosamide 200 mg tablet 200 mg PO BID 06/20/20 07/02/23 levetiracetam 500 mg tablet 500 mg PO BID 06/20/20 07/02/23 acetaminophen 500 mg tablet 1,000 mg PO Q6H PRN Fever Or Pain 08/07/20 07/02/23 (Tylenol Extra Strength) metoprolol succinate 50 mg 50 mg PO QAM 03/07/22 07/02/23 tablet,extended release 24 hr omeprazole 40 mg capsule,delayed 40 mg PO QAM 03/07/22 07/02/23 release warfarin 5 mg tablet 5 - 7.5 mg PO QPM 03/07/22 07/02/23 baclofen 10 mg tablet 10 mg PO BID 02/01/23 07/02/23 clobazam 10 mg tablet 5 mg PO QPM 02/01/23 07/02/23 levetiracetam 750 mg tablet 1,500 mg PO BID 02/01/23 07/02/23 midazolam 5 mg/spray (0.1 mL) 1 spray intranasal UD PRN rescue 02/01/23 07/02/23 nasal spray (Nayzilam) seizure dexamethasone 4 mg tablet 4 mg PO DAILY 07/02/23 07/02/23 hydrocortisone 20 mg tablet 20 mg PO BID 07/02/23 07/02/23 lacosamide 50 mg tablet 50 mg PO BID 07/02/23 07/02/23 Results & Data (ED) Vital Signs Vital Signs - 24 hr 07/02/23 15:22 07/02/23 15:25 07/02/23 16:10 Pulse Rate 150 H 106 H Pulse Rate from SpO2 Sensor Respiratory Rate Blood Pressure 154/94 H Blood Pressure Mean 98 Pulse Oximetry 07/02/23 16:10 07/02/23 17:00 07/02/23 17:00 Pulse Rate 85 79 Pulse Rate from SpO2 Sensor 88 79 Respiratory Rate 19 18 Blood Pressure 163/93 H Blood Pressure Mean 111 Pulse Oximetry 93 93 07/02/23 18:00 07/02/23 18:00 07/02/23 18:18 Pulse Rate 83 81 Pulse Rate from SpO2 Sensor 84 86 Respiratory Rate 19 21 Blood Pressure 170/101 H Blood Pressure Mean 116 Pulse Oximetry 92 93 Laboratory Data 07/02/23 14:46 07/02/23 14:46 Lab Results 07/02/23 Range/Units 14:46 WBC 12.56 H (4.8-10.8) K/ul RBC 5.44 (4.70-6.10) M/uL Hgb 14.1 (14.0-18.0) g/dl Hct 46.4 (42.0-52.0) % MCV 85.3 (80.0-100.0) fL MCH 25.9 (25.0-34.0) pg MCHC 30.4 L (32.0-36.0) g/dL RDW Std Deviation 48.4 H (36.4-46.3) fL RDW Coeff of Naresh 15.7 H (11.5-14.5) % Plt Count 185 (130-400) K/uL MPV 8.8 L (9.4-12.4) fL Immature Gran % (Auto) 6.0 % Neut % (Auto) 65.0 % Lymph % (Auto) 19.7 % [place] % (Auto) 8.3 % Eos % (Auto) 0.4 % Baso % (Auto) 0.6 % Neut # (Auto) 8.18 H (1.40-6.50) K/uL Lymph # (Auto) 2.47 (1.20-3.40) K/uL [place] # (Auto) 1.04 H (0.11-0.59) K/uL Eos # (Auto) 0.05 (0.00-0.50) K/uL Baso # (Auto) 0.07 (0.00-0.20) K/uL Immature Gran # (Auto) 0.75 H (0.01-0.20) K/uL PT 28.9 H (9.0-12.0) Seconds INR 2.8 H (0.9-1.1) Sodium 143 (136-145) mmol/L Potassium 3.6 (3.5-5.1) mmol/L Chloride 104 (98-107) mmol/L Carbon Dioxide 31 (21-32) mmol/L Anion Gap 8 (3-11) BUN 21 (6-23) mg/dl Creatinine 0.83 (0.6-1.4) mg/dl Est Cr Clr Drug Dosing 145.9 ml/min Est GFR ( Amer) 135.9 ml/min Est GFR (Non-Af Amer) 117.2 ml/min BUN/Creatinine Ratio 25.3 H (10-20) Glucose 95 (70-99(Fasting)) mg/dl Calcium 9.1 (8.6-10.3) mg/dl Magnesium 2.0 (1.7-2.4) mg/dl Total Bilirubin 0.4 (0.2-1.0) mg/dl Direct Bilirubin 0.0 (0-0.2) mg/dl AST 16 (13-39) U/L ALT 56 H (7-52) U/L Alkaline Phosphatase 39 (34-104) U/L Troponin I High Sens 13.5 (0-20) pg/ml Total Protein 6.7 (6.0-8.3) gm/dl Albumin 4.1 (3.4-5.0) gm/dl Lipase 20 (11-82) U/L Administered Medications Levetiracetam 2,000 mg/ Sodium (Chloride) 270 mls @ 999 mls/hr IV Q12H DANY Stop: 08/02/23 03:59 Last Infusion: 07/03/23 03:59 Dose: Infused Documented By: Admin: 07/03/23 03:24 Dose: 999 mls/hr Documented By: SEN Lacosamide 250 mg/ Sodium (Chloride) 75 mls @ 150 mls/hr IV Q12H DANY Stop: 08/01/23 22:59 Last Infusion: 07/03/23 13:55 Dose: Infused Documented By: Admin: 07/03/23 13:11 Dose: 150 mls/hr Documented By: Infusion: 07/03/23 00:24 Dose: Infused Documented By: Admin: 07/02/23 23:29 Dose: 150 mls/hr Documented By: SEN Promethazine HCl 12.5 mg/ (Sodium Chloride) 50.5 mls @ 202 mls/hr IV Q6H PRN PRN Reason: Nausea And Vomiting Stop: 08/02/23 05:55 Last Infusion: 07/03/23 11:52 Dose: Infused Documented By: Admin: 07/03/23 10:33 Dose: 202 mls/hr Documented By: GIIRSH Pantoprazole Sodium 40 mg/ (Syringe) 10 mls @ 5 mls/min IV DAILY@1100 [facility] Stop: 08/02/23 12:19 Last Admin: 07/03/23 13:20 Dose: 5 mls/min Documented By: GIRISH Morphine Sulfate (Morphine Sulfate 4 Mg/Ml 1 Ml Carp\\Vial) 4 mg IV Q1H PRN PRN Reason: Pain Stop: 07/17/23 09:35 Last Admin: 07/03/23 11:32 Dose: 4 mg Documented By: GIRISH Ondansetron HCl (Ondansetron Inj 2 Mg/Ml 2 Ml Vial) 4 mg IV Q6H [facility] Stop: 07/05/23 09:29 Last Admin: 07/03/23 13:56 Dose: 4 mg Documented By: Admin: 07/03/23 10:34 Dose: 4 mg Documented By: GIRISH Discontinued Medications Dexamethasone Sodium Phosphate (DexamethasonePf 10 Mg/Ml Vial) 5 mg IV NOW ONE Stop: 07/02/23 14:59 Last Admin: 07/02/23 15:16 Dose: 5 mg Documented By: FAUSTO Dexamethasone Sodium Phosphate (DexamethasonePf 10 Mg/Ml Vial) 10 mg IV NOW ONE Stop: 07/02/23 17:08 Last Admin: 07/02/23 17:23 Dose: 10 mg Documented By: FAUSTO Diphenhydramine HCl (Diphenhydramine 50 Mg/Ml Vial) 25 mg IV NOW STA Stop: 07/02/23 14:59 Last Admin: 07/02/23 15:18 Dose: 25 mg Documented By: FAUSTO Hydrocortisone Sodium Succinate (Hydrocortisone Sod Succinate 100 Mg/2 Ml Vial) 50 mg IV NOW STA Stop: 07/02/23 14:59 Last Admin: 07/02/23 15:20 Dose: 50 mg Documented By: FAUSTO Hydromorphone HCl (Hydromorphone Inj 1 Mg/Ml Syringe) 1 mg IV NOW STA Stop: 07/02/23 14:59 Last Admin: 07/02/23 15:22 Dose: 1 mg Documented By: FAUSTO Levetiracetam 2,000 mg/ Sodium (Chloride) 270 mls @ 999 mls/hr IV NOW STA Stop: 07/02/23 15:14 Last Infusion: 07/02/23 15:50 Dose: Infused Documented By: Admin: 07/02/23 15:26 Dose: 999 mls/hr Documented By: FAUSTO Prochlorperazine (Compazine) 1 mls @ 1 mls/min IV ONE ONE Stop: 07/02/23 14:59 Last Admin: 07/02/23 15:19 Dose: 1 mls/min Documented By: FAUSTO Sodium Chloride (Nss) 1,000 mls @ 999 mls/hr IV .Q1H1M ONE Stop: 07/02/23 16:03 Last Infusion: 07/02/23 16:16 Dose: Infused Documented By: Admin: 07/02/23 15:15 Dose: 999 mls/hr Documented By: FAUSTO Phytonadione 5 mg/ Dextrose 50.5 mls @ 101 mls/hr IV ONE ONE Stop: 07/02/23 17:36 Last Infusion: 07/02/23 18:33 Dose: Infused Documented By: Admin: 07/02/23 17:43 Dose: 101 mls/hr Documented By: FAUSTO Dexamethasone 4 mg/ Syringe 1 mls @ 1 mls/min IV Q8H DANY Stop: 08/02/23 01:59 Last Admin: 07/03/23 09:00 Dose: 1 mls/min Documented By: Admin: 07/03/23 02:38 Dose: 1 mls/min Documented By: SEN Promethazine HCl 12.5 mg/ (Sodium Chloride) 50.5 mls @ 202 mls/hr IV NOW ONE Stop: 07/02/23 22:59 Last Infusion: 07/02/23 23:44 Dose: Infused Documented By: Admin: 07/02/23 23:07 Dose: 202 mls/hr Documented By: SEN Lorazepam (Lorazepam 2 Mg/1 Ml Vial) 0.5 mg IV Q4H PRN PRN Reason: Anxiety/Agitation/seizure Stop: 08/01/23 22:01 Last Admin: 07/03/23 03:24 Dose: 0.5 mg Documented By: SEN Metoclopramide HCl (Metoclopramide Hcl Inj 5 Mg/Ml 2 Ml Vial) 10 mg IV NOW STA Stop: 07/03/23 04:07 Last Admin: 07/03/23 04:11 Dose: 10 mg Documented By: SEN Metoclopramide HCl (Metoclopramide Hcl Inj 5 Mg/Ml 2 Ml Vial) Confirm Administered Dose 10 mg .ROUTE .STK-MED ONE Stop: 07/03/23 04:11 Last Admin: 07/03/23 04:26 Dose: Not Given Documented By: SEN Ondansetron HCl (Ondansetron Inj 2 Mg/Ml 2 Ml Vial) Confirm Administered Dose 4 mg .ROUTE .STK-MED ONE Stop: 07/02/23 20:33 Last Admin: 07/02/23 20:33 Dose: 4 mg Documented By: BRI Ondansetron HCl (Ondansetron Inj 2 Mg/Ml 2 Ml Vial) 4 mg IV NOW STA Stop: 07/02/23 20:36 Last Admin: 07/02/23 20:42 Dose: Not Given Documented By: BRI Ondansetron HCl (Ondansetron Inj 2 Mg/Ml 2 Ml Vial) 4 mg IV Q6H PRN PRN Reason: Nausea Stop: 08/01/23 22:01 Last Admin: 07/03/23 02:38 Dose: 4 mg Documented By: SEN Pantoprazole Sodium (Pantoprazole 40 Mg Tab) 40 mg PO QAM [facility] Stop: 08/02/23 08:59 Last Admin: 07/03/23 10:34 Dose: Not Given Documented By: GIRISH Discharge Plan Visit Data Chief Complaint: Illness Stated Complaint: VOMITING ED Provider: Keyon Luis Discharge Problem: Glioblastoma multiforme, Vasogenic edema, Intracranial hemorrhage, Intractable nausea and vomiting Patient Disposition: Admitted As Inpatient Discharge Instructions Interventions: ED Discharge Assessment Last Done: 07/02/23 20:50
[2023-07-02] MEDS ORDERED: SODIUM CHLORIDE 0.9% 1,000 ML IV ONE (15:03)
[2023-07-02 15:28] LABS: Hematocrit (blood only) 46.4 % (42.0-52.0); Hemoglobin 14.1 g/dl (14.0-18.0); Mean Corpuscular Hemoglobin 25.9 pg (25.0-34.0); Mean Corpuscular Hgb Conc 30.4 g/dL (32.0-36.0); Mean Corpuscular Volume 85.3 fL (80.0-100.0); Mean Platelet Volume 8.8 fL (9.4-12.4); Platelet Count 185 K/uL (130-400); RDW Coefficient of Variation 15.7 % (11.5-14.5); RDW Standard Deviation 48.4 fL (36.4-46.3); Red Blood Count 5.44 M/uL (4.70-6.10); White Blood Count 12.56 K/ul (4.8-10.8)
[2023-07-02 15:56] LABS: INR 2.8 (0.9-1.1); Prothrombin Time 28.9 Seconds (9.0-12.0)
[2023-07-02 15:57] LABS: Albumin Level 4.1 gm/dl (3.4-5.0); Bilirubin,Total 0.4 mg/dl (0.2-1.0); Calcium 9.1 mg/dl (8.6-10.3); Potassium 3.6 mmol/L (3.5-5.1)
[2023-07-02 16:03] LABS: BUN Creatinine Ratio 25.3 (10-20); Creatinine Clr Calc Pharmacy 145.9 ml/min; Est GFR (African American) 135.9 ml/min; Est GFR (Non-African American) 117.2 ml/min; Total Protein 6.7 gm/dl (6.0-8.3)
[2023-07-02 16:04] LABS: Troponin I High Sensitivity 13.5 pg/ml (0-20)
[2023-07-02 16:14] LABS: Basophils # (auto) 0.07 K/uL (0.00-0.20); Basophils % (auto) 0.6 %; Eosinophils # (auto) 0.05 K/uL (0.00-0.50); Eosinophils % (auto) 0.4 %; Immature Granulocytes # (auto) 0.75 K/uL (0.01-0.20); Lymphocytes # (auto) 2.47 K/uL (1.20-3.40); Lymphocytes % (auto) 19.7 %; Monocytes # (auto) 1.04 K/uL (0.11-0.59); Monocytes % (auto) 8.3 %; Neutrophils # (auto) 8.18 K/uL (1.40-6.50)
--- NOTE | 2023-07-02 16:55 | CT Scan Report ---
CT OF THE HEAD WITHOUT CONTRAST CLINICAL HISTORY: Vomiting, on coumadin, headache. History of brain mass. COMPARISON STUDY: MRI of the brain December 03, 2022. Head CT February 01, 2023. CT DOSE: 625.8 mGy.cm TECHNIQUE: Helical axial images of the head were obtained without IV contrast. Automated exposure con trol was utilized for the study. A dose lowering technique was utilized adhering to the principles o f ALARA. FINDINGS: Left craniectomy is noted. There has been interval development of extensive vasogenic edema within the left cerebral hemisphere since head CT of February 01, 2023 with associated sulcal effacement. Postoperative changes status post tumor resection are again noted. This edema has significant mass e ffect which results in the brain slightly protruding through the craniectomy defect. In addition, the re is mild rightward midline shift and compression of the third ventricle with mild ventricular dilat ation and periventricular hypodensity. This has developed since prior exam. There are scattered small hyperdense foci within the right cerebral hemisphere which measure up to 6 mm. These are suspicious for small foci of hemorrhage. There may also be trace hemorrhage within the occipital horn of the lef t lateral ventricle. This hemorrhage was not present on prior CT. IMPRESSION: 1. Interval development of extensive vasogenic edema within the left cerebral hemisphere with a few s cattered small foci of suspected hemorrhage and trace hemorrhage within the occipital horn of the lef t lateral ventricle. The findings suggest progression of recurrent tumor. However, an acute infarct c ould have a similar imaging appearance. 2. This edema results in sulcal effacement with the brain parenchyma slightly protruding through the craniectomy defect. In addition, associated mass effect upon the third ventricle with probable obstru ctive hydrocephalus. Neurosurgical consultation is recommended. Findings discussed with Dr. Luis at time of dictation. ACT 112: Negative or not required by law. Electronically signed by: Bret Cantrell M.D. 07/02/2023 4:54 PM
[2023-07-02] MEDS ORDERED: PHYTONADIONE 5 MG in DEXTROSE 5% 50 ML IV ONE (17:07)
--- NOTE | 2023-07-02 19:00 | History & Physical Report ---
Date of Service July 02, 2023 Assessment & Plan (1) Vasogenic edema: (2) Glioblastoma multiforme: Plan This is a 33yo M with a PMH of glioblastoma s/p subtotal resection/chemo/radiation in 2019 complicated by post op L MCA stroke requiring decompressive craniotomy with residual R sided weakness and aphasia , seizure disorder, history of DVT on buttermaker continuous churn anticoagulation who presents to ED 2/2 worsening ARORA, n/v x [address] Head: IMPRESSION: 1. Interval development of extensive vasogenic edema within the left cerebral hemisphere with a few scattered small foci of suspected hemorrhage and trace hemorrhage within the occipital horn of the left lateral ventricle. The findings suggest progression of recurrent tumor. However, an acute infarct could have a similar imaging appearance. 2. This edema results in sulcal effacement with the brain parenchyma slightly protruding through the craniectomy defect. In addition, associated mass effect upon the third ventricle with probable obstructive hydrocephalus. Neurosurgical consultation is recommended. Vasogenic edema Glioblastoma multiforme hx of subtotal resection, chemo, radiation 2019, last tx was this past summer with avastin -family currently treated symptomatically and homeopathic as no further intervention able to be done per oncologists Suspected small foci of hemorrhage in L lateral ventricle vs acute infarct admit to med tele to monitor blood pressure in this acute phase, tx > 180/100 with prn labetalol once stabilizes can transfer to med surg comfort measures only, consult palliative and mother wish to keep patient comfort and goals of care are for him to maintain his dignity and maintain a baseline of pain free/no vomiting Dr. Humphreys held extensive discussion with family at bedside regarding guarded progressive in patient who has known progressive GBM and again requested DNR/DNI, no further intervention, lab draws, imaging They do wish to continue IV Dexamethasone as well as seizure medications to prevent break through case management to be involved to discuss possible d/c home with hospice agency will place prn zofran, morphine, ativan diet as tolerated Hx of DVT/PE discontinue warfarin no further lab draws, did receive IV Vit K in ED Hx of L mca cva as a complication from decompressive craniotomy Residual R hemiparesis and aphasia supportive care only at this time Seizure d/o will convert Keppra and Lacosamide to IV DVT ppx: None in setting of comfort measures DNR/DNI, bereavement tray to be provided to family Gabriela [phone], family plans to be at bedside at all times History of Present Illness Chief Complaint: Worsening Headache, nausea and vomiting x 1 day. Primary Care Provider: Lenard Medina MD This is a 33yo M with a PMH of glioblastoma s/p subtotal resection/chemo/radiation in 2019 complicated by post op L MCA stroke requiring decompressive craniotomy with residual R sided weakness and aphasia , seizure disorder, history of DVT on buttermaker continuous churn anticoagulation who presents to ED 2/2 worsening ARORA, n/v x 1 day. Pt and mother are at bedside who help elicit hx. states over the last 3 weeks pt has been at his baseline. 3 weeks ago he did have a GI bug that causes increased intracranial swelling that she utilized dexamethasone for. His baseline is that he is alert and able to communicate minimally 2/2 aphasia. He was even fine up until 2 a.m. this morning as they were laughing when he had to go urinate. When he woke up this morning he complained of severe ARORA and had profuse nausea and vomiting. Due to pt being unable to keep down his PO meds he was brought to ER in fear of possible seizure or worsened swelling. ROS unobtainable from PT. In ED pt had a therapeutic INR. CT scan of head showed 1. Interval development of extensive vasogenic edema within the left cerebral hemisphere with a few scattered small foci of suspected hemorrhage and trace hemorrhage within the occipital horn of the left lateral ventricle. The findings suggest progression of recurrent tumor. However, an acut e infarct could have a similar imaging appearance. 2. This edema results in sulcal effacement with the brain parenchyma slightly protruding through the craniectomy defect. In addition, associated mass effect upon the third ventricle with probable obstructive hydrocephalus. Neurosurgical consultation is recommended. After further discussion with ED provider and family decision was made for patient to be made comfortable and evaluation by palliative care provider. Family wishes for no further transfer, surgical intervention or any means of treatment. Allergies Allergy/AdvReac Type Severity Reaction Status Date / Time bee venom protein (honey bee) Allergy Unknown . Verified 08/27/20 15:17 No Known Drug Allergies Allergy Verified 08/27/20 15:17 Home Medications Medication Instructions Recorded Confirmed Type lacosamide 200 mg tablet 200 mg PO BID 06/20/20 07/02/23 History levetiracetam 500 mg tablet 500 mg PO BID 06/20/20 07/02/23 History acetaminophen 500 mg tablet 1,000 mg PO Q6H PRN Fever Or Pain 08/07/20 07/02/23 History (Tylenol Extra Strength) metoprolol succinate 50 mg 50 mg PO QAM 03/07/22 07/02/23 History tablet,extended release 24 hr omeprazole 40 mg capsule,delayed 40 mg PO QAM 03/07/22 07/02/23 History release warfarin 5 mg tablet 5 - 7.5 mg PO QPM 03/07/22 07/02/23 History baclofen 10 mg tablet 10 mg PO BID 02/01/23 07/02/23 History clobazam 10 mg tablet 5 mg PO QPM 02/01/23 07/02/23 History levetiracetam 750 mg tablet 1,500 mg PO BID 02/01/23 07/02/23 History midazolam 5 mg/spray (0.1 mL) 1 spray intranasal UD PRN rescue 02/01/23 07/02/23 History nasal spray (Nayzilam) seizure dexamethasone 4 mg tablet 4 mg PO DAILY 07/02/23 07/02/23 History hydrocortisone 20 mg tablet 20 mg PO BID 07/02/23 07/02/23 History lacosamide 50 mg tablet 50 mg PO BID 07/02/23 07/02/23 History Past Med/Surg History Medical History (Updated 07/03/23 @ 09:44 by Rocío Rosado, FRANKLYN) Glioblastoma multiforme s/p subtotal resection in 2019 Seizure disorder Syncope COVID-19 Steroid dependence History of ischemic left MCA stroke complication of glioblastoma resection in 2019, required decompressive craniotomy, has residual R sided weakness Acute right-sided weakness Fall Expressive aphasia DVT (deep venous thrombosis) (06/15/20) h/o DVT on long-term anticoaguation Stroke (05/30/20) Seizures (~02/2020) Surgical History H/O craniotomy (05/29/20) History of wisdom tooth extraction Family History Grandfather (Paternal) Diabetes Mother Hypercholesterolemia Denies family history of Ovarian cancer Prostate cancer Myocardial infarction Breast cancer Colorectal cancer Social History (Updated 07/02/23 @ 18:59 by Jigna Corbett PA-C) Smoking Status: Never smoker Second Hand Exposure: No; Do You Dip or Chew Tobacco: No (quit in at onset of illness in May); Hx Alcohol Use: No Hx Substance Use: No Preferred Language: Sami Communication Ability: Impaired Communication Ability Comment: expressive aphagia Visual Impairment: No Limitations Hearing Ability: Normal Channel Marketing Manager Required: No Beliefs That Will Affect Care: None marital status: Current Living Situation: Spouse Current Living Situation Comment: lives at home with and son current occupational status: employed 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 other: "expecting" in December Feels Safe at Home: Yes Safety Concerns: Feels Safe At This Time Childhood Exposure to Second-Hand Smoke: No Diet: regular caffeine: Yes (soda once per day and coffee with meals) during the past year weight has: remained stable Dental Care, Regularly: Yes Physical Activity Frequency: 1-2 Times per Week Physical Activity Frequency Comment: resides inpatient at [facility] Seatbelt Use: always Sunscreen Use: Yes Assistive Devices: Walker Review of Systems Review of Systems: Unobtainable due to reduced consciousness Physical Exam Physical Exam: please refer to Dr. Humphreys addendum for physical exam findings. Results & Data Results & Data Vital Signs (Past 12 Hours) Vital Signs Temp Pulse Resp BP Pulse Ox 07/02/23 18:18 81 21 93 07/02/23 18:00 170/101 H 07/02/23 18:00 83 19 92 07/02/23 17:00 163/93 H 07/02/23 17:00 79 18 93 07/02/23 16:10 85 19 93 07/02/23 16:10 154/94 H 07/02/23 15:25 106 H 07/02/23 15:22 150 H 07/02/23 14:39 98 H 07/02/23 14:38 178/121 H 07/02/23 14:38 100 H 25 H 95 07/02/23 13:53 36.8 C 91 H 15 161/110 H [address] 07/02/23 15:02 CT OF THE HEAD WITHOUT CONTRAST CLINICAL HISTORY: Vomiting, on coumadin, headache. History of brain mass. COMPARISON STUDY: MRI of the brain December 03, 2022. Head CT February 01, 2023. CT DOSE: 625.8 mGy.cm TECHNIQUE: Helical axial images of the head were obtained without IV contrast. Automated exposure control was utilized for the study. A dose lowering technique was utilized adhering to the principles of ALARA. FINDINGS: Left craniectomy is noted. There has been interval development of extensive vasogenic edema within the left cerebral hemisphere since head CT of February 01, 2023 with associated sulcal effacement. Postoperative changes status post tumor resection are again noted. This edema has significant mass effect which results in the brain slightly protruding through the craniectomy defect. In addition, there is mild rightward midline shift and compression of the third ventricle with mild ventricular dilatation and periventricular hypodensity. This has developed since prior exam. There are scattered small hyperdense foci within the right cerebral hemisphere which measure up to 6 mm. These are suspicious for small foci of hemorrhage. There may also be trace hemorrhage within the occipital horn of the left lateral ventricle. This hemorrhage was not present on prior CT. IMPRESSION: 1. Interval development of extensive vasogenic edema within the left cerebral hemisphere with a few scattered small foci of suspected hemorrhage and trace hemorrhage within the occipital horn of the left lateral ventricle. The findings suggest progression of recurrent tumor. However, an acute infarct could have a similar imaging appearance. 2. This edema results in sulcal effacement with the brain parenchyma slightly protruding through the craniectomy defect. In addition, associated mass effect upon the third ventricle with probable obstructive hydrocephalus. Neurosurgical consultation is recommended. Findings discussed with Dr. Luis at time of dictation. ACT 112: Negative or not required by law. Electronically signed by: Bret Cantrell M.D. 07/02/2023 4:54 PM Medications Administered Medication List Discontinued Medications Dexamethasone Sodium Phosphate (DexamethasonePf 10 Mg/Ml Vial) 5 mg IV NOW ONE Stop: 07/02/23 14:59 Last Admin: 07/02/23 15:16 Dose: 5 mg Documented By: FAUSTO Dexamethasone Sodium Phosphate (DexamethasonePf 10 Mg/Ml Vial) 10 mg IV NOW ONE Stop: 07/02/23 17:08 Last Admin: 07/02/23 17:23 Dose: 10 mg Documented By: FAUSTO Diphenhydramine HCl (Diphenhydramine 50 Mg/Ml Vial) 25 mg IV NOW STA Stop: 07/02/23 14:59 Last Admin: 07/02/23 15:18 Dose: 25 mg Documented By: FAUSTO Hydrocortisone Sodium Succinate (Hydrocortisone Sod Succinate 100 Mg/2 Ml Vial) 50 mg IV NOW STA Stop: 07/02/23 14:59 Last Admin: 07/02/23 15:20 Dose: 50 mg Documented By: FAUSTO Hydromorphone HCl (Hydromorphone Inj 1 Mg/Ml Syringe) 1 mg IV NOW STA Stop: 07/02/23 14:59 Last Admin: 07/02/23 15:22 Dose: 1 mg Documented By: FAUSTO Levetiracetam 2,000 mg/ Sodium (Chloride) 270 mls @ 999 mls/hr IV NOW STA Stop: 07/02/23 15:14 Last Infusion: 07/02/23 15:50 Dose: Infused Documented By: Admin: 07/02/23 15:26 Dose: 999 mls/hr Documented By: FAUSTO Prochlorperazine (Compazine) 1 mls @ 1 mls/min IV ONE ONE Stop: 07/02/23 14:59 Last Admin: 07/02/23 15:19 Dose: 1 mls/min Documented By: FAUSTO Sodium Chloride (Nss) 1,000 mls @ 999 mls/hr IV .Q1H1M ONE Stop: 07/02/23 16:03 Last Infusion: 07/02/23 16:16 Dose: Infused Documented By: Admin: 07/02/23 15:15 Dose: 999 mls/hr Documented By: FAUSTO Phytonadione 5 mg/ Dextrose 50.5 mls @ 101 mls/hr IV ONE ONE Stop: 07/02/23 17:36 Last Infusion: 07/02/23 18:33 Dose: Infused Documented By: Admin: 07/02/23 17:43 Dose: 101 mls/hr Documented By: FAUSTO Code Status & VTE Plan Code Status DNR/DNI VTE Prophylaxis Plan VTE Prophylaxis will be ordered: No Reason for no VTE drug order: Treatment not indicated Supervising Physician Co-Signing Physician Notes 33-year-old male with PMH of glioblastoma multiforme status post radiation, chemo, surgery cx/b postoperative L MCA stroke requiring decompressive craniotomy; right hemiparesis and aphasia; seizure disorder on Keppra and Vimpat; DVT on warfarin, GERD presented to the ED secondary to acute vomiting, worsening of headache and nausea since morning. Patient's and mother at bedside who reports patient has been at his baseline and communicating with them as of yesterday evening. They also report the bulge over the craniectomy site has increased today. They were made aware of CT Head findings of vasogenic brain edema leading to protrusion through the craniectomy defect and trace hemorrhage within the occipital horn of the left ventricle. They are aware that he would need higher center with neurosurgical ICU facility. Family does not want any kind of aggressive measures, does not want transfer, does not want any further labs or imaging. Family does not want any artificial feeding or NG tube or intubation. They want to continue his seizure medications and other medications if possible in IV forms along with comfort care medications. They would like and appreciate help from case management and palliative care regarding further disposition, they have been informed that they will be reached out by the complex case manager and palliative care tomorrow. As of now, patient will be in med telemetry, no further imagings or lab, will continue to monitor vitals and provide symptomatic management including IV medications if needed including iv bp meds per request from family. Patient is put on IV dexamethasone to help with his nausea, vomiting and brain swelling. He will be put on scheduled nausea medication as well as N/V is the most imp thing that will bother the family, DANY pain medication along with as needed nausea/pain/breakthrough seizure medications. He will continue IV forms of his home seizure medications. Warfarin will be discontinued at this time per family request. Family is aware he can deteriorate rapidly and they don't want any aggressive measures besides making him comfortable and seizure/N/V free at this time. On exam: GENERAL:drowsy, occasionally opens eyes to voice, can say "yes"/"no". NAD, on R A. HEENT: No pallor, no icterus. Pupils equal, round. Oral mucosa moist. left side healed craniectomy scar noted/ soft bulge noted at this site NECK: No JVD, no neck masses. HEART: S1 and S2 heard. Regular rate and rhythm. No murmur, no gallop. RESPIRATORY SYSTEM: Normal AP diameter. No accessory muscle use. No wheezing, no crackles. ABDOMEN: Soft, bowel sounds present, nontender, no distention. CENTRAL NERVOUS SYSTEM: No facial droop. Aphasic. Obeys simple commands. Rt sides paresis noted. EXTREMITIES: No edema, no erythema seen. I have seen and examined the patient and have discussed the case with the provider above. I agree with the assessment and plan as stated.
[2023-07-02] MEDS ORDERED: ONDANSETRON INJ 2 MG/ML 2 ML VIAL ONE (20:32)
[2023-07-02] MEDS ORDERED: ONDANSETRON INJ 2 MG/ML 2 ML VIAL IV STA (20:35)
[2023-07-02] MEDS ORDERED: ONDANSETRON INJ 2 MG/ML 2 ML VIAL IV PRN (22:02)
[2023-07-02] MEDS ORDERED: ACETAMINOPHEN 325 MG TAB PO PRN (22:02)
[2023-07-02] MEDS ORDERED: LABETALOL HCL IV 5 MG/ML 20ML IV PRN (22:02)
[2023-07-02] MEDS ORDERED: DEXAMETHASONE SOD INJ 4 MG/ML VIAL IV SCH (22:02)
[2023-07-02] MEDS ORDERED: GLYCOPYRROLATE 0.2 MG/ML VIAL IV PRN (22:02)
[2023-07-02] MEDS ORDERED: MoRPHine SULFATE 2 MG/ML CARP IV PRN (22:02)
[2023-07-02] MEDS ORDERED: [UNRECOGNIZED DRUG - REMARK] INTNAS PRN (22:02)
[2023-07-02] MEDS ORDERED: LORazepam 0.5 MG TAB PO PRN (22:02)
[2023-07-02] MEDS ORDERED: LORazepam 2 MG/1 ML VIAL IV PRN (22:02)
[2023-07-02] MEDS ORDERED: PROMETHAZINE HCL 12.5 MG in SODIUM CHLORIDE 0.9% 50 ML IV ONE (22:45)
[2023-07-02] MEDS: LACOSAMIDE IV SCH (23:29)
[2023-07-02] MEDS: SODIUM CHLORIDE 0.9% IV SCH (23:29)
[2023-07-03 02:02] VITALS: RESP 16; O2SAT 96
[2023-07-03] MEDS: dexAMETHasone 4 MG in SYRINGE 0 ML IV SCH ×4 (02:38→19:46)
[2023-07-03] MEDS ORDERED: METOCLOPRAMIDE HCL INJ 5 MG/ML 2 ML VIAL IV STA (04:06)
[2023-07-03] MEDS ORDERED: METOCLOPRAMIDE HCL INJ 5 MG/ML 2 ML VIAL ONE (04:10)
--- NOTE | 2023-07-03 05:57 | Communication Note ---
Date of Service: July 02, 2023 Patient refusing vital signs monitoring at medical telemetry unit as per RN. wants patient to rest. Transfer to [facility].
[2023-07-03] MEDS ORDERED: PANTOprazole 40 MG TAB PO SCH (09:00)
--- NOTE | 2023-07-03 09:27 | Hospitalist Progress Note ---
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 Vasogenic edema Glioblastoma multiforme hx of subtotal resection, chemo, radiation 2019, last tx was this past summer with avastin -family currently treated symptomatically and homeopathic as no further intervention able to be done per oncologists Suspected small foci of hemorrhage in L lateral ventricle vs acute infarct admit to med [email or web address] to monitor blood pressure in this acute phase, tx > 180/100 with prn labetalol family requested no telemetry as they did not want frequent vital signs to disturb him comfort measures only, consult palliative who saw him this am. and mother wish to keep patient comfort and goals of care are for him to maintain his dignity and maintain a baseline of pain free/no vomiting no labs to be performed wtih minimal vitals They do wish to continue IV Dexamethasone as well as seizure medications to prevent break through vomiting imrpoved with scheduled decadron and antiemetic today diet as tolerated considering Hospice options over the weekend. Hx of DVT/PE discontinue warfarin no further lab draws, did receive IV Vit K in ED Hx of L mca cva as a complication from decompressive craniotomy Residual R hemiparesis and aphasia supportive care only at this time Seizure d/o cont Keppra and Lacosamide intravenously at this time. DVT ppx: None in setting of comfort measures DNR/DNI Dispo-hospice, either [facility] or home hospice, family currently considering options. Gabriela [phone] I spent a total [id number] coordinating, documenting, and providing care for this patient excluding time spent in the performance of separately billed services Cassi Boland DO [facility] Hospitalist Admission and Anticipated Discharge Date Admission Date: July 02, 2023 Subjective 33-year-old man with glioblastoma multiforme that is advanced presented with increased vasogenic edema and subsequent nausea and vomiting. Patient continues on palliative measures including scheduled dexamethasone, scheduled antiemetics and pain medication as needed He reports no pain or headache today He has baseline right-sided hemiplegia He is tolerating p.o. and was able to eat some pretzels and cheese with his who is at bedside His mom and I discussed hospice options outside of the room. [facility] hospice evaluation is planned for this afternoon. Physical Exam Physical Exam: CONSTITUTIONAL: WNWD, vitals as above, generally NAD EYES: normal conjunctivae, no scleral icterus ENT: external ear and nose normal, MMM NECK: trachea midline RESPIRATORY: clear to auscultation bilaterally, no crackles, rales or wheezes, normal respiratory effort CARDIOVASCULAR: regular rate and rhythm, S1 and 2 heard without murmurs, gallops or rubs, no JVD, no peripheral edema CHEST: inspection of chest was normal GASTROINTESTINAL: soft, nontender, ND, no guarding MUSCULOSKELETAL: R sided hemiplegia, transfers with assist SKIN: warm and dry NEUROLOGIC: EOMI, pupils are round and equal bilaterally, CN 2-12 grossly intact, no sensory deficit, normal cognition, normal speech, no tremor PSYCHIATRIC: alert cooperative and oriented to person, place and time. Euthymic mood, makes good eye contact, unable to verbalize sentenced responses well but is intentional in his communication Results & Data Results & Data Vital Signs (Past 12 Hours) Vital Signs Temp Pulse Pulse Resp BP Pulse Ox O2 Del Method 07/03/23 02:08 Room Air 07/03/23 01:48 36.8 C 90 16 174/82 H 96 Room Air 07/03/23 00:25 94 H Laboratory Results Short CBC 07/02/23 Range/Units 14:46 WBC 12.56 H (4.8-10.8) K/ul Hgb 14.1 (14.0-18.0) g/dl Hct 46.4 (42.0-52.0) % Plt Count 185 (130-400) K/uL BMP 07/02/23 14:46 Sodium 143 Potassium 3.6 Chloride 104 Carbon Dioxide 31 BUN 21 Creatinine 0.83 Glucose 95 Calcium 9.1 Liver Function 07/02/23 Range/Units 14:46 Total Bilirubin 0.4 (0.2-1.0) mg/dl Direct Bilirubin 0.0 (0-0.2) mg/dl AST 16 (13-39) U/L ALT 56 H (7-52) U/L Alkaline Phosphatase 39 (34-104) U/L Albumin 4.1 (3.4-5.0) gm/dl Medications Administered Current Inpatient Medications Acetaminophen (Acetaminophen 325 Mg Tab) 650 mg PO Q4H PRN PRN Reason: pain/fever Stop: 08/01/23 22:01 Glycopyrrolate (Glycopyrrolate 0.2 Mg/Ml Vial) 0.2 mg IV Q4H PRN PRN Reason: Secretions or Pulm Congestion Stop: 08/01/23 22:01 Levetiracetam 2,000 mg/ Sodium (Chloride) 270 mls @ 999 mls/hr IV Q12H DANY Stop: 08/02/23 03:59 Last Infusion: 07/03/23 03:59 Dose: Infused Lacosamide 250 mg/ Sodium (Chloride) 75 mls @ 150 mls/hr IV Q12H DANY Stop: 08/01/23 22:59 Last Infusion: 07/03/23 00:24 Dose: Infused Promethazine HCl 12.5 mg/ (Sodium Chloride) 50.5 mls @ 202 mls/hr IV Q6H PRN PRN Reason: Nausea And Vomiting Stop: 08/02/23 05:55 Dexamethasone 4 mg/ Syringe 1 mls @ 1 mls/min IV Q6H DANY Stop: 08/02/23 14:59 Lorazepam (Lorazepam 2 Mg/1 Ml Vial) 0.5 mg IV Q4H PRN PRN Reason: Anxiety/Agitation/seizure Stop: 08/01/23 22:01 Last Admin: 07/03/23 03:24 Dose: 0.5 mg Lorazepam (Lorazepam 0.5 Mg Tab) 0.5 mg PO Q4H PRN PRN Reason: Anxiety/Agitation Stop: 08/01/23 22:01 Morphine Sulfate (Morphine Sulfate 2 Mg/Ml Carp) 2 mg IV Q4H PRN PRN Reason: Pain or Respiratory Distress Stop: 07/16/23 22:01 Ondansetron HCl (Ondansetron Inj 2 Mg/Ml 2 Ml Vial) 4 mg IV Q6H DANY Stop: 08/02/23 09:29 Pantoprazole Sodium (Pantoprazole 40 Mg Tab) 40 mg PO QAM [facility] Stop: 08/02/23 08:59
[2023-07-03] MEDS ORDERED: LORazepam 2 MG/1 ML VIAL IV PRN ×2 (09:34→09:35)
[2023-07-03] MEDS ORDERED: GLYCOPYRROLATE 0.2 MG/ML VIAL IV PRN (09:34)
[2023-07-03] MEDS ORDERED: MoRPHine SULFATE 4 MG/ML 1 ML CARP\\VIAL IV PRN (09:36)
[2023-07-03] MEDS ORDERED: MoRPHine SULFATE 2 MG/ML CARP IV PRN (09:36)
--- NOTE | 2023-07-03 09:48 | Palliative Care Consultation ---
Date of Consultation July 03, 2023 Assessment & Plan (1) Cancer related pain: Morphine adjusted to 2 and 4mg IV Q1h prn pain, air hunger, terminal dyspnea (2) Refractory nausea and vomiting: Ativan dosing adjusted to 1mg q1h prn I will add haldol intensol prn - this can be dripped into buccal mucosa (3) Seizure: For seizure I have added ativan 2mg IV q1h prn (4) Agitation: (5) Palliative care by specialist: Met with pt family. Provided overview of Palliative Medicine, a subspecialty that provides specialized medical care for people living with a serious illness by offering a focus on quality of life. Palliative Medicine is often conflated with hospice: I advised patient/family that Palliative and hospice can be partners but we are not the same. It is important to understand the difference so that we may be informed, and not afraid. Palliative Medicine works to improve QOL through reduction of symptom burden/more control over their illness, for both the patient and family. Palliative medicine clinicians are board certified, specially-trained and another member of the patient's medical care team. We often provide an extra layer of support because our care is based on the needs of the patient, not the prognosis; as such, it's appropriate at any age/advancing stage of a serious illness and can be provided along with curative treatment. Palliative Medicine clinicians are also trained in advanced communication methodologies, to facilitate complex discussions about advanced illness planning, which are needed to help assure that the treatment choices match the patient's goals, aka delivering Goal Concordant care. Finally, we discussed that hospice is a visiting nurse service that focuses on care delivered at the very end of life for patients with terminal illness, with life expectancy less than 6 month. (6) Right hemiplegia: (7) Weakness generalized: (8) Altered mental status: (9) Discussion about advance care planning held with family member: Met face to face with pt and mother at bedside x 35min He is asleep, mentation has been clouded, he is unable to engage. Family do not want him disrupted. We spoke about their shared goal to assure comfort. They tell me he is at a terminal stage of his cancer, which has been going on for 3 years and this has been a sudden but rapid decline. Mom states she was advised that if he had had a bone flap in his skull, he would've before reaching the hospital due to the profound amount of vasogenic edema noted on scans this admission. Mom asking about prognosis/how much time do they have. Advised of the following palliative prognostics for Oncology Patients: * Patient's Palliative Prognostic Score (PaP) = 12.5 points / Interpretation:30-day survival probability <30% (0 - 5.5: 30-day survival probability >70% | 5.6 - 11.0: 30-day survival probability 30-70% | 11.1 - 17.5: 30-day survival probability <30%) * Patient's Palliative Prognostic Index Score (PPI) = 11.5 points / If the PPI is greater than 6.0, survival is less than three weeks (Sensitivity - 80%; Specificity - 85%). Reviewed that younger patients with single system illness may often endure longer due to lack of additional advanced comorbidities. We discussed options for home with hospice vs SNF vs GIP hospice in hospital. He could not be safely managed at home. He has severe right hemiplegia, mentation is worsening, he has growing weakness and severe refractory N/V, seizures uncontrolled and needed IV meds for rapid relief. He is very high risk for uncontrolled seizures due to the vasogenic edema, worsening and refractory N/V and the likelihood he can be managed at home with the need for IV meds I believe is low. Additionally, pt and have a 2 yo son and this may be further trauma for the child if pt is at home dying. (10) Encounter for hospice care discussion: We discussed the goals of hospice as a patient service and the goals of care; we discussed EOL trajectories and transitions ewelina the emotional impact of realizing mortality as a concrete reality from prior abstract considerations. Pt was reassured that no matter where they are along this trajectory, they are not alone - their medical team will remain by their side through their journey. Discussed the pros/cons of accepting help when especially weakened and distressed by pain-which would also help provide relief/decrease caregiver burden/strain. I provided education about the hospice benefit: an interdisciplinary program offered by nurses, nurses aides, social workers, chaplains and a medical planner for patients with a terminal condition and a life expectancy of less than 6 months. This is covered by Medicare at 100%/no out of pocket expense to patient and all meds/supplies needed by patient for the reason they are on hospice are paid for/covered by hospice. The goal is assure quality of life of the patient in their home setting (home, care home, inpatient hospice setting) by providing symptoms management, psychosocial and spiritual support. However, they cannot offer 24 hours care and if the family is unable to provide that care, they will have to consider personal care with out of pocket cost vs. care home placement. We discussed the goals of hospice as a patient service and the goals of care; we discussed EOL trajectories and transitions ewelina the emotional impact of realizing mortality as a concrete reality from prior abstract considerations. Pt was reassured that no matter where they are along this trajectory, they are not alone - their medical team will remain by their side through their journey. Discussed the pros/cons of accepting help when especially weakened and distressed by pain-which would also help provide relief/decrease caregiver burden/strain. (11) Encounter for end of life care: (12) Glioblastoma multiforme: (13) Vasogenic edema: Plan * Continue Comfort care and I have modified medications * I suggest GIP Hospice eval given the following palliative prognostics for Oncology Patients: * Patient's Palliative Prognostic Score (PaP) = 12.5 points / Interpretation:30-day survival probability <30% * Patient's Palliative Prognostic Index Score (PPI) = 11.5 points / If the PPI is greater than 6.0, survival is less than three weeks. * Anticipated survival of 3-4 weeks with current prognostic scores. He is not able to be safely managed at home. He has severe right hemiplegia, mentation is worsening, he has growing weakness and severe refractory N/V, seizures uncontrolled and needed IV meds for rapid relief. He is very high risk for uncontrolled seizures due to the vasogenic edema, worsening and refractory N/V and the likelihood he can be managed at home with the need for IV meds I believe is low. I have asked for a GIP eval. * I have provided family with my contact information, I can be paged thru the weekend for urgent EOL symptom mgt needs, family aware I am not in the hospital on weekends. * I have updated and discussed case with primary team/Dr. Boland. Thank you for allowing us to participate in the ongoing care of this patient. Please don't hesitate to call or page with any additional concerns. Dr. Rocío Rosado DNP Director, Palliative Care History of Present Illness Reason for Consultation: glio, EOL care Attending Physician: Cassi Bolnad DO Allergies Allergy/AdvReac Type Severity Reaction Status Date / Time bee venom protein (honey bee) Allergy Unknown . Verified 08/27/20 15:17 No Known Drug Allergies Allergy Verified 08/27/20 15:17 Home Medications Medication Instructions Recorded Confirmed Type lacosamide 200 mg tablet 200 mg PO BID 06/20/20 07/02/23 History levetiracetam 500 mg tablet 500 mg PO BID 06/20/20 07/02/23 History acetaminophen 500 mg tablet 1,000 mg PO Q6H PRN Fever Or Pain 08/07/20 07/02/23 History (Tylenol Extra Strength) metoprolol succinate 50 mg 50 mg PO QAM 03/07/22 07/02/23 History tablet,extended release 24 hr omeprazole 40 mg capsule,delayed 40 mg PO QAM 03/07/22 07/02/23 History release warfarin 5 mg tablet 5 - 7.5 mg PO QPM 03/07/22 07/02/23 History baclofen 10 mg tablet 10 mg PO BID 02/01/23 07/02/23 History clobazam 10 mg tablet 5 mg PO QPM 02/01/23 07/02/23 History levetiracetam 750 mg tablet 1,500 mg PO BID 02/01/23 07/02/23 History midazolam 5 mg/spray (0.1 mL) 1 spray intranasal UD PRN rescue 02/01/23 07/02/23 History nasal spray (Nayzilam) seizure dexamethasone 4 mg tablet 4 mg PO DAILY 07/02/23 07/02/23 History hydrocortisone 20 mg tablet 20 mg PO BID 07/02/23 07/02/23 History lacosamide 50 mg tablet 50 mg PO BID 07/02/23 07/02/23 History Patient History Medical History (Updated 07/03/23 @ 09:44 by Rocío Rosado DNP) Glioblastoma multiforme s/p subtotal resection in 2019 Seizure disorder Syncope COVID-19 Steroid dependence History of ischemic left MCA stroke complication of glioblastoma resection in 2019, required decompressive craniotomy, has residual R sided weakness Acute right-sided weakness Fall Expressive aphasia DVT (deep venous thrombosis) (06/15/20) h/o DVT on fci anticoaguation Stroke (05/30/20) Seizures (~02/2020) Surgical History H/O craniotomy (05/29/20) History of wisdom tooth extraction Family History Grandfather (Paternal) Diabetes Mother Hypercholesterolemia Denies family history of Ovarian cancer Prostate cancer Myocardial infarction Breast cancer Colorectal cancer Social History (Updated 07/02/23 @ 18:59 by Jigna Corbett PA-C) Smoking Status: Never smoker Second Hand Exposure: No; Do You Dip or Chew Tobacco: No (quit in at onset of illness in May); Hx Alcohol Use: No Hx Substance Use: No Preferred Language: Pashto Communication Ability: Impaired Communication Ability Comment: expressive aphagia Visual Impairment: No Limitations Hearing Ability: Normal Receiving Room Clerk Required: No Beliefs That Will Affect Care: None marital status: Current Living Situation: Spouse Current Living Situation Comment: lives at home with and son current occupational status: employed 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 other: "expecting" in December Feels Safe at Home: Yes Safety Concerns: Feels Safe At This Time Childhood Exposure to Second-Hand Smoke: No Diet: regular caffeine: Yes (soda once per day and coffee with meals) during the past year weight has: remained stable Dental Care, Regularly: Yes Physical Activity Frequency: 1-2 Times per Week Physical Activity Frequency Comment: resides inpatient at [facility] Seatbelt Use: always Sunscreen Use: Yes Assistive Devices: Walker Review of Systems Review of Systems: Unobtainable due to cognitive status Physical Exam Physical Exam: Frail, chronically ill appearing Skin is pale, but with flushed cheeks He is occasionally grimacing +right hemiplegia Pt is unable to follow commands Results & Data Vital Signs (Past 12 Hours) Vital Signs Temp Pulse Pulse Resp BP Pulse Ox O2 Del Method 07/03/23 02:08 Room Air 07/03/23 01:48 36.8 C 90 16 174/82 H 96 Room Air 07/03/23 00:25 94 H Laboratory Results data reviewed Diagnostic Findings data reviewed PG Care Time/CCT Total # of Minutes Spent Total Time Spent: 95 Total Time Spent with Patient: Total time spent is greater than 50% in coordination of care (as documented) at patient's floor/unit and/or counseling patient: I spent 95 minutes overall addressing this case: 20 min in medical data review/discussion with referring provider(s) and/or preparation for the visit inc OSH review + d/w teams 10 min in direct interaction with the patient/exam 35 min in Advance Care Planning/Goals of Care discussions as detailed above in note (must be >16min) 15 min in subsequent review and synthesis of assessment and plan 15 min communicating with other providers regarding the patient's case: Advanced Care Planning 80998 Advanced Care Planning 30 [place] [address] IN/OBS CONSULT LVL 5,80M Patient Type New History Comprehensive Exam Comprehensive Medical Decision Making High Complexity Diagnoses Cancer related pain G89.3 Refractory nausea and vomiting R11.2 Seizure R56.9 Agitation R45.1 Palliative care by specialist Z51.5 Right hemiplegia G81.91 Weakness generalized R53.1 Altered mental status R41.82 Discussion about advance care planning held with family member Z71.0 Encounter for hospice care discussion Z71.89 Encounter for end of life care Z51.5 Glioblastoma multiforme C71.9 Vasogenic edema G93.6 Additional Codes Advanced Care Planning - 08499 Advanced Care Planning 30 Min: 92168 Advanced Care Planning 30 Min ([id number])
[2023-07-03] MEDS: PROMETHAZINE HCL 12.5 MG in SODIUM CHLORIDE 0.9% 50 ML IV PRN ×2 (10:33→19:23)
[2023-07-03] MEDS: ONDANSETRON INJ 2 MG/ML 2 ML VIAL IV SCH ×3 (10:34→22:07)
[2023-07-03] MEDS ORDERED: PANTOprazole 40 MG in SYRINGE 0 ML IV SCH (11:00)
--- NOTE | 2023-07-03 11:04 | Electrocardiogram Report ---
Test Reason : Blood Pressure : / mmHG Vent. Rate : 103 BPM Atrial Rate : 103 BPM P-R Int : 154 ms QRS Dur : 090 ms QT Int : 326 ms P-R-T Axes : 030 017 039 degrees QTc Int : 427 ms Sinus tachycardia Minimal voltage criteria for LVH, may be normal variant Nonspecific T wave abnormality Abnormal ECG When compared with ECG of 01-FEB-2023 12:51, No significant change was found Confirmed by Jim Duenas ([id number]) on 07/03/2023 11:03:57 AM Referred By: REFERRED SELF Confirmed By:Toni Duenas
[2023-07-03] MEDS: LACOSAMIDE IV SCH ×2 (13:11→22:07)
[2023-07-03] MEDS: SODIUM CHLORIDE 0.9% IV SCH ×2 (13:11→22:07)
[2023-07-03] MEDS: PANTOprazole 40 MG in SYRINGE 0 ML IV SCH (13:20)
[2023-07-03] MEDS: ACETAMINOPHEN 1,000 MG/100 ML VIAL IV PRN (15:39)
[2023-07-04] MEDS: PROMETHAZINE HCL 12.5 MG in SODIUM CHLORIDE 0.9% 50 ML IV PRN (01:30)
[2023-07-04] MEDS: ONDANSETRON INJ 2 MG/ML 2 ML VIAL IV SCH ×2 (04:13→09:03)
[2023-07-04] MEDS: dexAMETHasone 4 MG in SYRINGE 0 ML IV SCH ×2 (04:14→09:04)
[2023-07-04] MEDS: ACETAMINOPHEN 1,000 MG/100 ML VIAL IV PRN (09:03)
--- NOTE | 2023-07-04 09:27 | Hospitalist Progress Note ---
Date of Service July 04, 2023 Assessment & Plan (1) Vasogenic edema: (2) Glioblastoma multiforme: (3) Intractable nausea and vomiting: (4) Intracranial hemorrhage: (5) Right hemiplegia: (6) Cushings syndrome: (7) Comfort measures only status: Plan This is a 33yo M with a PMH of glioblastoma s/p subtotal resection/chemo/radiation in 2019 complicated by post op L MCA stroke requiring decompressive craniotomy with residual R sided weakness and aphasia , seizure disorder, history of DVT on skilled nursing anticoagulation who presents to ED 2/2 worsening ARORA, n/v x 1 day. Vasogenic edema Glioblastoma multiforme hx of subtotal resection, chemo, radiation 2019, last tx was this past summer with avastin -family currently treated symptomatically and homeopathic as no further intervention able to be done per oncologists Suspected small foci of hemorrhage in L lateral ventricle vs acute infarct admit to [facility] to monitor blood pressure in this acute phase, tx > 180/100 with prn labetalol family requested no telemetry as they did not want frequent vital signs to disturb him comfort measures only, consult palliative who saw him this am. and mother wish to keep patient comfort and goals of care are for him to maintain his dignity and maintain a baseline of pain free/no vomiting no labs to be performed wtih minimal vitals They do wish to continue Dexamethasone as well as seizure medications to prevent break through vomiting improved with scheduled decadron and antiemetic diet as tolerated considering Hospice options over the weekend. 07/04: restart home baclofen for noted tremors overnight, restart home clobazam, change to oral decadron same dose/frequency. If tolerates will plan to acid changer other medications to oral tomorrow. Mom and patient in agreement with this plan. Pt denies pain and appears comfortable. Mom wishes to speak with [facility] to understand full range of options for care and support at home. Will discuss with CM. Hx of DVT/PE discontinue warfarin in setting of intracranial bleeding no further lab draws, did receive IV Vit K in ED Hx of L mca cva as a complication from decompressive craniotomy Residual R hemiparesis and aphasia supportive care only at this time Seizure d/o cont Keppra and Lacosamide intravenously at this time. Jericho's syndrome-patient with abdominal striae, mohan facies with facial erythema, iatrogenic 2/2 steroids. Given risk vs benefit, cont decadron at this time. May consider weaning down with time, but for now all feel this is providing benefit for symptoms management through management of the cerebral swelling. DVT ppx: None in setting of comfort measures DNR/DNI Dispo-hospice, either [facility] or home hospice, family currently considering options. Gabriela [phone] I spent a total [id number] coordinating, documenting, and providing care for this patient excluding time spent in the performance of separately billed services. Mom updated at bedside. Cass[facility]and [facility] and [facility]ticipated Discharge Date Admission Date: July 02, 2023 Subjective 33-year-old man with glioblastoma multiforme that is advanced presented with increased vasogenic edema and subsequent nausea and vomiting. some tremoring noted overnight and mom asked for baclofen to be restarted pt has been eating and continues to deny nausea on scheduled zofran we discussed a de-escalation to oral medications that mom and patient are in agreement with pt denies pain Physical Exam Physical Exam: CONSTITUTIONAL: WNWD, vitals as above, generally NAD EYES: normal conjunctivae, no scleral icterus ENT: external ear and nose normal, MMM NECK: trachea midline RESPIRATORY: clear to auscultation bilaterally, no crackles, rales or wheezes, normal respiratory effort CARDIOVASCULAR: regular rate and rhythm, S1 and 2 heard without murmurs, gallops or rubs, no JVD, no peripheral edema CHEST: inspection of chest was normal GASTROINTESTINAL: soft, nontender, ND, no guarding, cushingoid appearance MUSCULOSKELETAL: R sided hemiparesis, transfers with assist SKIN: warm and dry NEUROLOGIC: pupils are round and equal bilaterally, CN 2-12 grossly intact, no sensory deficit, normal cognition, normal speech, no tremor PSYCHIATRIC: alert cooperative and oriented to person, place and time. Euthymic mood, makes good eye contact,speech intact and he is intentional in his communication Results & Data Results & Data Medications Administered Current Inpatient Medications Glycopyrrolate (Glycopyrrolate 0.2 Mg/Ml Vial) 0.4 mg IV Q4H PRN PRN Reason: Secretions or Pulm Congestion Stop: 08/01/23 22:01 Levetiracetam 2,000 mg/ Sodium (Chloride) 270 mls @ 999 mls/hr IV Q12H [facility] Stop: 08/02/23 03:59 Last Infusion: 07/04/23 05:15 Dose: Infused Lacosamide 250 mg/ Sodium (Chloride) 75 mls @ 150 mls/hr IV Q12H [facility] Stop: 08/01/23 22:59 Last Infusion: 07/03/23 22:58 Dose: Infused Promethazine HCl 12.5 mg/ (Sodium Chloride) 50.5 mls @ 202 mls/hr IV Q6H PRN PRN Reason: Nausea And Vomiting Stop: 08/02/23 05:55 Last Infusion: 07/04/23 02:09 Dose: Infused Dexamethasone 4 mg/ Syringe 1 mls @ 1 mls/min IV Q6H [facility] Stop: 08/02/23 14:59 Last Admin: 07/04/23 09:04 Dose: 1 mls/min Pantoprazole Sodium 40 mg/ (Syringe) 10 mls @ 5 mls/min IV DAILY@1100 [facility] Stop: 08/02/23 12:19 Last Admin: 07/03/23 13:20 Dose: 5 mls/min Acetaminophen (Ofirmev) 1,000 mg in 100 mls @ 400 mls/hr IV Q8H PRN PRN Reason: Mild Pain (Scale 1,2,3)/fever Stop: 07/06/23 12:15 Last Admin: 07/04/23 09:03 Dose: 400 mls/hr Lorazepam (Lorazepam 2 Mg/1 Ml Vial) 1 mg IV Q1H PRN PRN Reason: Anxiety/Agitation/seizure Stop: 08/01/23 22:01 Lorazepam (Lorazepam 2 Mg/1 Ml Vial) 2 mg IV Q1H PRN PRN Reason: SEIZURES, SPASMS Stop: 08/02/23 09:44 Morphine Sulfate (Morphine Sulfate 2 Mg/Ml Carp) 2 mg IV Q1H PRN PRN Reason: Pain or Respiratory Distress Stop: 07/16/23 22:01 Morphine Sulfate (Morphine Sulfate 4 Mg/Ml 1 Ml Carp\Vial) 4 mg IV Q1H PRN PRN Reason: Pain Stop: 07/17/23 09:35 Last Admin: 07/03/23 11:32 Dose: 4 mg Ondansetron HCl (Ondansetron Inj 2 Mg/Ml 2 Ml Vial) 4 mg IV Q6H [facility] Stop: 07/05/23 09:29 Last Admin: 07/04/23 09:03 Dose: 4 mg
[2023-07-04] MEDS: PANTOprazole 40 MG in SYRINGE 0 ML IV SCH (11:07)
[2023-07-04] MEDS: LACOSAMIDE IV SCH (11:16)
[2023-07-04] MEDS: SODIUM CHLORIDE 0.9% IV SCH (11:16)
[2023-07-04] MEDS ORDERED: BACLOFEN 10 MG TAB PO SCH (12:00)
--- NOTE | 2023-07-04 14:06 | Discharge Summary ---
Discharge Summary Date of Service July 04, 2023 Notes For Next Care Provider Discharged to general inpatient hospice care at [facility] Medication Changes From Visit see med rec, increased decadron to q6h Admission HPI Per Admitting Provider This is a 33yo M with a PMH of glioblastoma s/p subtotal resection/chemo/radiation in 2019 complicated by post op L MCA stroke requiring decompressive craniotomy with residual R sided weakness and aphasia , seizure disorder, history of DVT on fdc anticoagulation who presents to ED 2/2 w orsening ARORA, n/v x 1 day. Pt and mother are at bedside who help elicit hx. states over the last 3 weeks pt has been at his baseline. 3 weeks ago he did have a GI bug that causes increased intracranial swelling that she utilized dexamethasone for. His baseline is that he is alert and able to communicate minimally 2/2 aphasia. He was even fine up until 2 a.m. this morning as they were laughing when he had to go urinate. When he woke up this morning he complained of severe ARORA and had profuse nausea and vomiting. Due to pt being unable to keep down his PO meds he was brought to ER in fear of possible seizure or worsened swelling. ROS unobtainable from PT. In ED pt had a therapeutic INR. CT scan of head showed 1. Interval development of extensive vasogenic edema within the left cerebral hemisphere with a few scattered small foci of suspected hemorrhage and trace hemorrhage within the occipital horn of the left lateral ventricle. The findings suggest progression of recurrent tumor. However, an acute infarct could have a similar imaging appearance. 2. This edema results in sulcal effacement with the brain parenchyma slightly protruding through the craniectomy defect. In addition, associated mass effect upon the third ventricle with probable obstructive hydrocephalus. Neurosurgical consultation is recommended. After further discussion with ED provider and family decision was made for patient to be made comfortable and evaluation by palliative care provider. Family wishes for no further transfer, surgical intervention or any means of treatment. Admission Exam Per Admitting Provider GENERAL:drowsy, occasionally opens eyes to voice, can say "yes"/"no". NAD, on RA. HEENT: No pallor, no icterus. Pupils equal, round. Oral mucosa moist. left side healed craniectomy scar noted/ soft bulge noted at this site NECK: No JVD, no neck masses. HEART: S1 and S2 heard. Regular rate and rhythm. No murmur, no gallop. RESPIRATORY SYSTEM: Normal AP diameter. No accessory muscle use. No wheezing, no crackles. ABDOMEN: Soft, bowel sounds present, nontender, no distention. CENTRAL NERVOUS SYSTEM: No facial droop. Aphasic. Obeys simple commands. Rt sides paresis noted. EXTREMITIES: No edema, no erythema seen. Principal Dx & Hospital Course #1 = Principal Diagnosis (1) Vasogenic edema: (2) Glioblastoma multiforme: (3) Intractable nausea and vomiting: (4) Intracranial hemorrhage: (5) Right hemiplegia: (6) Cushings syndrome: (7) Comfort measures only status: Plan This is a 33yo M with a PMH of glioblastoma s/p subtotal resection/chemo/radiation in 2019 complicated by post op L MCA stroke requiring decompressive craniotomy with residual R sided weakness and aphasia , seizure disorder, history of DVT on fdc anticoagulation who presents to ED 2/2 worsening ARORA, n/v x 1 day. Vasogenic edema Glioblastoma multiforme hx of subtotal resection, chemo, radiation 2019, last tx was this past summer with avastin -family currently treated symptomatically and homeopathic as no further intervention able to be done per oncologists Suspected small foci of hemorrhage in L lateral ventricle vs acute infarct admit to [facility] to monitor blood pressure in this acute phase, tx > 180/100 with prn labetalol family requested no telemetry as they did not want frequent vital signs to disturb him comfort measures only, consult palliative who saw him this am. and mother wish to keep patient comfort and goals of care are for him to maintain his dignity and maintain a baseline of pain free/no vomiting no labs to be performed wtih minimal vitals They do wish to continue Dexamethasone as well as seizure medications to prevent break through vomiting improved with scheduled decadron and antiemetic diet as tolerated considering Hospice options over the weekend. 07/04: restart home baclofen for noted tremors overnight, restart home clobazam, change to oral decadron same dose/frequency. If tolerates will plan to microsoft exchange administrator other medications to oral tomorrow. Mom and patient in agreement with this plan. Pt denies pain and appears comfortable. Mom wishes to speak with [facility] hospice to understand full range of options for care and support at home. Will discuss with CM. Transitioned to [facility] hospice today. Hx of DVT/PE discontinue warfarin in setting of intracranial bleeding no further lab draws, did receive IV Vit K in ED Hx of L mca cva as a complication from decompressive craniotomy Residual R hemiparesis and aphasia supportive care only at this time Seizure d/o cont Keppra and Lacosamide intravenously at this time. Jericho's syndrome-patient with abdominal striae, mohan facies with facial erythema, iatrogenic 2/2 steroids. Given risk vs benefit, cont decadron at this time. May consider weaning down with time, but for now all feel this is providing benefit for symptoms management through management of the cerebral swelling. DVT ppx: None in setting of comfort measures DNR/DNI Dispo-hospice Gabriela [phone] I spent a total [id number] coordinating, documenting, and providing care for this patient excluding time spent in the performance of separately billed services. Mom updated at bedside. Cassi Boland DO [facility] Hospitalist Discharge Exam CONSTITUTIONAL: WNWD, vitals as above, generally NAD EYES: normal conjunctivae, no scleral icterus ENT: external ear and nose normal, MMM NECK: trachea midline RESPIRATORY: clear to auscultation bilaterally, no crackles, rales or wheezes, normal respiratory effort CARDIOVASCULAR: regular rate and rhythm, S1 and 2 heard without murmurs, gallops or rubs, no JVD, no peripheral edema CHEST: inspection of chest was normal GASTROINTESTINAL: soft, nontender, ND, no guarding, cushingoid appearance MUSCULOSKELETAL: R sided hemiparesis, transfers with assist SKIN: warm and dry NEUROLOGIC: pupils are round and equal bilaterally, CN 2-12 grossly intact, no sensory deficit, normal cognition, normal speech, no tremor PSYCHIATRIC: alert cooperative and oriented to person, place and time. Euthymic mood, makes good eye contact,speech intact and he is intentional in his communication Updated Medication List Medication Instructions Recorded Confirmed Type lacosamide 200 mg tablet 200 mg PO BID 06/20/20 07/02/23 History levetiracetam 500 mg tablet 500 mg PO BID 06/20/20 07/02/23 History acetaminophen 500 mg tablet 1,000 mg PO Q6H PRN Fever Or Pain 08/07/20 07/02/23 History (Tylenol Extra Strength) metoprolol succinate 50 mg 50 mg PO QAM 03/07/22 07/02/23 History tablet,extended release 24 hr omeprazole 40 mg capsule,delayed 40 mg PO QAM 03/07/22 07/02/23 History release warfarin 5 mg tablet 5 - 7.5 mg PO QPM 03/07/22 07/02/23 History baclofen 10 mg tablet 10 mg PO BID 02/01/23 07/02/23 History clobazam 10 mg tablet 5 mg PO QPM 02/01/23 07/02/23 History levetiracetam 750 mg tablet 1,500 mg PO BID 02/01/23 07/02/23 History midazolam 5 mg/spray (0.1 mL) 1 spray intranasal UD PRN rescue 02/01/23 07/02/23 History nasal spray (Nayzilam) seizure dexamethasone 4 mg tablet 4 mg PO DAILY 07/02/23 07/02/23 History hydrocortisone 20 mg tablet 20 mg PO BID 07/02/23 07/02/23 History lacosamide 50 mg tablet 50 mg PO BID 07/02/23 07/02/23 History Hospital Stay Data Consultations 07/02/23 18:05 ED Decision to Admit Stat 07/02/23 22:02 Consult Palliative Care Routine Diagnostic Imagining Performed 07/02/23 15:02 CT head/brain wo con Stat Pending Results Patient Have Any Pending Studies at Discharge: No Discharge Instructions Given to Patient (Per Discharging Provider) Please cont all medications per discharge instructions. You are being transitioned to General inpatient hospice at [facility]. Follow-up with primary care provider as needed. It was a pleasure taking care of you! Please call if you have any questions or problems. You can reach a [facility] hospitalist on duty at [facility] 24 hours a day by calling [phone]. Take care of yourself. Cassi Boland, DO [facility] Hospitalist Total Time Total Time Spent Total Time Spent (In Minutes): 60
[2023-07-04 14:50] VITALS: BP 173/111; PULSE 83
[2023-07-05] MEDS ORDERED: dexAMETHasone 4 MG TAB PO SCH (15:00)
== END 2023-07-04 14:50 | disposition hospice, inpatient (51) | DRG 80 ==
LOC: ED 14:28 → SUATTDRO 18:36 → 2W 18:36
DX: I69.351 Hemiplegia and hemiparesis following cerebral infarction affecting right dominant side; R56.9 Unspecified convulsions; G91.1 Obstructive hydrocephalus; Z51.5 Encounter for palliative care; Z92.3 Personal history of irradiation; I69.320 Aphasia following cerebral infarction; Z86.16 Personal history of COVID-19; Z86.711 Personal history of pulmonary embolism; E24.9 Cushing's syndrome, unspecified; G93.6 Cerebral edema; Z66 Do not resuscitate; R45.1 Restlessness and agitation; G89.3 Neoplasm related pain (acute) (chronic); C71.9 Malignant neoplasm of brain, unspecified; I61.5 Nontraumatic intracerebral hemorrhage, intraventricular; Z86.718 Personal history of other venous thrombosis and embolism

== ENCOUNTER 2023-07-04 14:52 | Inpatient (IN) ==
[2023-07-04] MEDS ORDERED: LORazepam 2 MG/1 ML VIAL IV PRN ×2 (15:09)
[2023-07-04] MEDS ORDERED: GLYCOPYRROLATE 0.2 MG/ML VIAL IV PRN (15:09)
[2023-07-04] MEDS ORDERED: MoRPHine SULFATE 2 MG/ML CARP IV PRN (15:09)
[2023-07-04] MEDS ORDERED: ACETAMINOPHEN 500 MG TAB PO PRN (15:14)
[2023-07-04] MEDS: ONDANSETRON INJ 2 MG/ML 2 ML VIAL IV SCH ×2 (15:45→21:15)
[2023-07-04] MEDS: dexAMETHasone 4 MG TAB PO SCH ×2 (16:23→21:15)
--- NOTE | 2023-07-04 18:20 | History & Physical Report ---
Date of Service July 04, 2023 Assessment & Plan (1) Comfort measures only status: (2) Intractable nausea and vomiting: (3) Intracranial hemorrhage: (4) Vasogenic edema: (5) Glioblastoma multiforme: (6) Cushings syndrome: (7) Right hemiplegia: (8) Seizure disorder: Plan Continue supportive care measures with Decadron p.o., scheduled Zofran and continue intravenous AEDs with transition to p.o. tomorrow as long as no further vomiting. No significant pain is present but would treat that as needed. Planning to transition all medications back to p.o. with oral as needed medications for anxiety and pain to go home with and send him home with hospice early next week. This is his expressed wish to his mom and who will care for him. Plans were discussed with his mom who was present at bedside today. Cassi Boland DO [facility] Hospitalist Admission and Anticipated Discharge Date Admission Date: July 04, 2023 History of Present Illness Chief Complaint: [facility] hospice Primary Care Provider: Lenard Medina MD 33-year-old man with a history of glioblastoma status post subtotal resection/chemo/radiation in 2019 complicated by postop left MCA stroke requiring decompressive craniotomy with residual right-sided weakness and aphasia, seizure disorder and history of DVT on long-term anticoagulation presented to the ER with worsening headache nausea vomiting x1 day. He was admitted and placed on intravenous Decadron with improvement. CT impression also revealed suspected foci of hemorrhage in the occipital horn of the left lateral ventricle and progression of recurrent tumor. He was placed on scheduled Zofran and is starting to tolerate p.o. Given his grim prognosis palliative care was consulted and he is being transition to general inpatient hospice. Today he is in no pain denies headache and denies other issues at this time. He is tolerating p.o. over the past 24 hours. Mother and are very involved in his care and mother is at his bedside today. Plans discussed regarding de-escalation of intravenous medication to oral as he tolerates. Allergies Allergy/AdvReac Type Severity Reaction Status Date / Time bee venom protein (honey bee) Allergy Unknown . Verified 08/27/20 15:17 No Known Drug Allergies Allergy Verified 08/27/20 15:17 Home Medications Medication Instructions Recorded Confirmed Type lacosamide 200 mg tablet 200 mg PO BID 06/20/20 07/04/23 History levetiracetam 500 mg tablet 500 mg PO BID 06/20/20 07/04/23 History acetaminophen 500 mg tablet 1,000 mg PO Q6H PRN Fever Or Pain 08/07/20 07/04/23 History (Tylenol Extra Strength) omeprazole 40 mg capsule,delayed 40 mg PO QAM 03/07/22 07/04/23 History release baclofen 10 mg tablet 10 mg PO BID 02/01/23 07/04/23 History clobazam 10 mg tablet 5 mg PO QPM 02/01/23 07/04/23 History levetiracetam 750 mg tablet 1,500 mg PO BID 02/01/23 07/04/23 History midazolam 5 mg/spray (0.1 mL) 1 spray intranasal UD PRN rescue 02/01/23 07/04/23 History nasal spray (Nayzilam) seizure dexamethasone 4 mg tablet 4 mg PO DAILY 07/02/23 07/04/23 History lacosamide 50 mg tablet 50 mg PO BID 07/02/23 07/04/23 History Past Med/Surg History Medical History (Updated 07/04/23 @ 18:25 by Cassi Boland DO) Seizure disorder Glioblastoma multiforme s/p subtotal resection in 2019 Syncope COVID-19 Steroid dependence History of ischemic left MCA stroke complication of glioblastoma resection in 2019, required decompressive craniotomy, has residual R sided weakness Acute right-sided weakness Fall Expressive aphasia DVT (deep venous thrombosis) (06/15/20) h/o DVT on nursing home anticoaguation Stroke (05/30/20) Seizures (~02/2020) Surgical History H/O craniotomy (05/29/20) History of wisdom tooth extraction Family History Grandfather (Paternal) Diabetes Mother Hypercholesterolemia Denies family history of Ovarian cancer Prostate cancer Myocardial infarction Breast cancer Colorectal cancer Social History (Updated 07/02/23 @ 18:59 by Jigna Corbett PA-C) Smoking Status: Never smoker Second Hand Exposure: No; Do You Dip or Chew Tobacco: No (quit in at onset of illness in May); Hx Alcohol Use: No Hx Substance Use: No Preferred Language: Spanish Communication Ability: Impaired Communication Ability Comment: expressive aphagia Visual Impairment: No Limitations Hearing Ability: Normal Stockroom Coordinator Required: No Beliefs That Will Affect Care: None marital status: Current Living Situation: Spouse Current Living Situation Comment: lives at home with and son current occupational status: employed 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 other: "expecting" in December Feels Safe at Home: Yes Childhood Exposure to Second-Hand Smoke: No Diet: regular caffeine: Yes (soda once per day and coffee with meals) during the past year weight has: remained stable Dental Care, Regularly: Yes Physical Activity Frequency: 1-2 Times per Week Physical Activity Frequency Comment: resides inpatient at [facility] Seatbelt Use: always Sunscreen Use: Yes Assistive Devices: Walker and Wheelchair Physical Exam Physical Exam: CONSTITUTIONAL: WNWD, vitals as above, generally NAD EYES: normal conjunctivae, no scleral icterus ENT: external ear and nose normal, MMM NECK: trachea midline RESPIRATORY: clear to auscultation bilaterally, no crackles, rales or wheezes, normal respiratory effort CARDIOVASCULAR: regular rate and rhythm, S1 and 2 heard without murmurs, gallops or rubs, no JVD, no peripheral edema CHEST: inspection of chest was normal GASTROINTESTINAL: soft, nontender, ND, no guarding, cushingoid appearance MUSCULOSKELETAL: R sided hemiparesis, transfers with assist SKIN: warm and dry NEUROLOGIC: pupils are round and equal bilaterally, CN 2-12 grossly intact, no sensory deficit, normal cognition, normal speech, no tremor PSYCHIATRIC: alert cooperative and oriented to person, place and time. Euthymic mood, makes good eye contact,speech intact and he is intentional in his communication Results & Data Results & Data Vital Signs (Past 12 Hours) Vital Signs O2 Del Method 07/04/23 16:00 Room Air Medications Administered Current Inpatient Medications Acetaminophen (Acetaminophen 500 Mg Tab) 1,000 mg PO Q6H PRN PRN Reason: Fever Or Pain Stop: 08/03/23 15:13 Baclofen (Baclofen 10 Mg Tab) 10 mg PO BID DANY Stop: 08/03/23 20:59 Dexamethasone (Dexamethasone 4 Mg Tab) 4 mg PO Q6H DANY Stop: 08/03/23 15:29 Last Admin: 07/04/23 16:23 Dose: 4 mg Glycopyrrolate (Glycopyrrolate 0.2 Mg/Ml Vial) 0.2 mg IV Q4H PRN PRN Reason: Secretions or Pulm Congestion Stop: 08/03/23 15:08 Lacosamide 250 mg/ Sodium (Chloride) 75 mls @ 150 mls/hr IV Q12H DANY Stop: 08/03/23 23:29 Levetiracetam 2,000 mg/ Sodium (Chloride) 270 mls @ 999 mls/hr IV Q12H DANY Stop: 08/03/23 15:59 Last Infusion: 07/04/23 16:10 Dose: Infused Lorazepam (Lorazepam 2 Mg/1 Ml Vial) 0.5 mg IV Q4H PRN PRN Reason: Anxiety/Agitation Stop: 08/03/23 15:08 Lorazepam (Lorazepam 2 Mg/1 Ml Vial) 0.5 mg IV Q5M PRN PRN Reason: Seizure Miscellaneous (Clobazam 10mg: Order Awaiting Action) 1 each N/A QS [facility] Stop: 08/03/23 15:59 Last Admin: 07/04/23 16:09 Dose: Not Given Morphine Sulfate (Morphine Sulfate 2 Mg/Ml Carp) 2 mg IV Q4H PRN PRN Reason: Pain or Respiratory Distress Stop: 07/18/23 15:08 Ondansetron HCl (Ondansetron Inj 2 Mg/Ml 2 Ml Vial) 4 mg IV Q6H DANY Stop: 08/03/23 15:29 Last Admin: 07/04/23 15:45 Dose: 4 mg Pantoprazole Sodium (Pantoprazole 40 Mg Tab) 40 mg PO QAM [facility] Stop: 08/04/23 08:59 Code Status & VTE Plan VTE Prophylaxis Plan VTE Prophylaxis will be ordered: No Reason for no VTE drug order: Drug declined by patient
[2023-07-04] MEDS: BACLOFEN 10 MG TAB PO SCH (21:16)
[2023-07-04] MEDS ORDERED: LACOSAMIDE IV SCH (23:30)
[2023-07-04] MEDS ORDERED: SODIUM CHLORIDE 0.9% IV SCH (23:30)
[2023-07-05] MEDS: ONDANSETRON INJ 2 MG/ML 2 ML VIAL IV SCH ×2 (03:41→10:11)
[2023-07-05] MEDS: dexAMETHasone 4 MG TAB PO SCH ×4 (03:43→20:50)
[2023-07-05 08:08] VITALS: BP 174/82; PULSE 90; RESP 16; TEMP 98.2; O2SAT 96
--- NOTE | 2023-07-05 08:16 | Consultation ---
Date of Consultation July 05, 2023 Assessment & Plan (1) Glioblastoma multiforme: I am not able to examine the patient and have only indirect knowledge of his case through review of records from [facility] but unfortunately this seems only too straightforward - the typical history of GBM is sadly for some initial responses but almost inevitable relapse and progression. There are only limited "standard" salvage regimens most of which are no more than transiently effective. While there are some investigational options that are generating cautious optimism, none of these are universally dramatic with regards to their impact on long-term disease at least thus far and participation would require a better performance status than he currently manifests. Sadly, a palliative care/hospice care only approach not only assures that we optimize his current quality of life but in fact may ironically assure the maximum achievable quantity of life by avoiding unnecessary exposure to potential life-threatening complications of additional treatment. Plan Unfortunately I have nothing to add to his current care other than an endorsement of the decision to transition to hospice/palliative care based on review of the current records and as well unfortunately the typical natural history of this disease. If more specific oncologic perspectives would be helpful, they may be most efficiently achieved by transfer to [facility]'s main facility in [place] or both neurosurgery and medical oncology should be more familiar with his case. However, at a point where there is little more to offer than symptom stabilization and maintenance of what quality of life and time he can still enjoy with his family, it probably makes more sense for him to stay here on hospice. I will "sign off" but if there are additional perspectives that I can offer please do not hesitate to contact me through [place] [facility] History of Present Illness Reason for Consultation: Patient with previously treated glioblastoma multiforme he admitted with symptomatic progression Attending Physician: Cassi Boland, DO History of Present Illness Please note that this is a consultation constructed purely from review of the electronic database. I am working remotely and unable to speak directly with the patient or examine him. I reviewed the current admission records which seem to be an accurate source of relevant information but I am completely reliant on that for my conclusions and perspectives. If there are urgent concerns regarding the need for more direct [id number] review, you should consider transferring the patient to [facility] who have been primarily responsible for his recent care. The evaluation is consultative in nature and all patient care and treatment decisions can either be accepted or rejected by the patient's primary hospital- based treating physician using their own independent medical judgment for the patient. Patient's care has been primarily through [facility] for his original surgery then the [facility] system for his subsequent treatment along with our radiation oncology section. 31-year-old diagnosed in 2019 with glioblastoma multiform grade 4 IDH mutated, MGMT methylated who underwent initial surgery at [facility] on 05/29/2020. The procedure was complicated by stroke and DVT. He subsequently received radiation through the radiation oncology section here at [facility] and was followed by [facility] for his concomitant chemotherapy and then recent salvage treatment including treatment with bevacizumab. Patient has apparent long-term profound right-sided weakness though he had had the ability to ambulate independentl. He also had very limited capacity for speech which current records suggest has transitioned to complete aphasia. He has required long-term seizure medications. He is now admitted with headache and nausea with radiologic signs of further progression as well as some possible tumor related hemorrhage. He has a closely attentive family - in discussions between palliative care and that family the decision has been made to transition him to hospice care. Allergies Allergy/AdvReac Type Severity Reaction Status Date / Time bee venom protein (honey bee) Allergy Unknown . Verified 08/27/20 15:17 No Known Drug Allergies Allergy Verified 08/27/20 15:17 Home Medications Medication Instructions Recorded Confirmed Type lacosamide 200 mg tablet 200 mg PO BID 06/20/20 07/04/23 History levetiracetam 500 mg tablet 500 mg PO BID 06/20/20 07/04/23 History acetaminophen 500 mg tablet 1,000 mg PO Q6H PRN Fever Or Pain 08/07/20 07/04/23 History (Tylenol Extra Strength) omeprazole 40 mg capsule,delayed 40 mg PO QAM 03/07/22 07/04/23 History release baclofen 10 mg tablet 10 mg PO BID 02/01/23 07/04/23 History clobazam 10 mg tablet 5 mg PO QPM 02/01/23 07/04/23 History levetiracetam 750 mg tablet 1,500 mg PO BID 02/01/23 07/04/23 History midazolam 5 mg/spray (0.1 mL) 1 spray intranasal UD PRN rescue 02/01/23 07/04/23 History nasal spray (Nayzilam) seizure dexamethasone 4 mg tablet 4 mg PO DAILY 07/02/23 07/04/23 History lacosamide 50 mg tablet 50 mg PO BID 07/02/23 07/04/23 History Patient History Medical History (Updated 07/04/23 @ 18:25 by Cassi Boland, DO) Seizure disorder Glioblastoma multiforme s/p subtotal resection in 2019 Syncope COVID-19 Steroid dependence History of ischemic left MCA stroke complication of glioblastoma resection in 2019, required decompressive craniotomy, has residual R sided weakness Acute right-sided weakness Fall Expressive aphasia DVT (deep venous thrombosis) (06/15/20) h/o DVT on assisted anticoaguation Stroke (05/30/20) Seizures (~02/2020) Surgical History H/O craniotomy (05/29/20) History of wisdom tooth extraction Family History Grandfather (Paternal) Diabetes Mother Hypercholesterolemia Denies family history of Ovarian cancer Prostate cancer Myocardial infarction Breast cancer Colorectal cancer Social History (Updated 07/02/23 @ 18:59 by Jigna Corbett PA-C) Smoking Status: Never smoker Second Hand Exposure: No; Do You Dip or Chew Tobacco: No (quit in at onset of illness in May); Hx Alcohol Use: No Hx Substance Use: No Preferred Language: Irish Communication Ability: Impaired Communication Ability Comment: expressive aphagia Visual Impairment: No Limitations Hearing Ability: Normal Cooler Servicer Required: No Beliefs That Will Affect Care: None marital status: Current Living Situation: Spouse Current Living Situation Comment: home with spouse current occupational status: employed 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 Other Information That Helps Us Care for You: No other: "expecting" in December Feels Safe at Home: Yes Safety Concerns: Feels Safe At This Time Childhood Exposure to Second-Hand Smoke: No Diet: regular caffeine: Yes (soda once per day and coffee with meals) during the past year weight has: remained stable Dental Care, Regularly: Yes Physical Activity Frequency: 1-2 Times per Week Physical Activity Frequency Comment: resides inpatient at [facility] Seatbelt Use: always Sunscreen Use: Yes Assistive Devices: Walker and Wheelchair Physical Exam Physical Exam: Notes suggest that his status is stabilized with the initiation of dexamethasone and more aggressive antinausea aid Results & Data Vital Signs (Past 12 Hours) Vital Signs Temp Pulse Resp BP Pulse Ox O2 Del Method 07/05/23 08:02 36.8 C 90 16 174/82 H 96 Room Air 07/05/23 01:35 EST Room Air PG Care Time/CCT Total # of Minutes Spent Total Time Spent with Patient: Total time spent is greater than 50% in coordination of care (as documented) at patient's floor/unit and/or counseling patient: Coding Level of Care Code 93333 IN/OBS CONSULT LVL 2,35M Diagnoses Glioblastoma multiforme C71.9
--- NOTE | 2023-07-05 09:30 | Hospitalist Progress Note ---
Date of Service July 05, 2023 Assessment & Plan (1) Comfort measures only status: (2) Intractable nausea and vomiting: (3) Intracranial hemorrhage: (4) Vasogenic edema: (5) Glioblastoma multiforme: (6) Cushings syndrome: (7) Right hemiplegia: (8) Seizure disorder: Plan Continue Decadron p.o 4 times daily. Discussed with his mom and hospice nurse that 4 times daily dosing is not conducive to good sleep and rest. As things improve may consider tapering this down as outpatient. Continuing scheduled Zofran and backing down to every 12 hours with as needed as needed in between. Transition AEDs from intravenous to oral this morning. Patient continues to deny pain and has no evidence of anxiety or other issues at this time. Cont current therapy. Cassi Boland DO [facility] Hospitalist Admission and Anticipated Discharge Date Admission Date: July 04, 2023 Subjective 33-year-old man with glioblastoma multiforme that is advanced presented with increased vasogenic edema and subsequent nausea and vomiting. Patient continues to remain stable without vomiting today and overnight Mother reports that he started developing increased sensation in a positive manner in his right arm which he had not felt for years There was some concern for him visually seeing things that may not have been there, and we discussed this may be a side effect of Decadron versus the insult to the brain and the location where it is affecting his eyesight There was a report by mom of patient losing control of his bladder overnight but also noting that he was sleeping soundly. Patient denies any headache or pain is also at bedside and reports that he is preferring to move independently and was capable of doing that at 1 point overnight last night We discussed as a team that we will move to all p.o. medications I did discuss care with the case management coordinator and the hospice care nurse this morning by phone. We have a good plan in place for transition to home with home hospice tomorrow. Physical Exam Physical Exam: CONSTITUTIONAL: WNWD, vitals as above, generally NAD EYES: normal conjunctivae, no scleral icterus ENT: external ear and nose normal, MMM NECK: trachea midline RESPIRATORY: clear to auscultation bilaterally, no crackles, rales or wheezes, normal respiratory effort CARDIOVASCULAR: regular rate and rhythm, S1 and 2 heard without murmurs, gallops or rubs, no JVD, no peripheral edema CHEST: inspection of chest was normal GASTROINTESTINAL: soft, nontender, ND, no guarding, cushingoid appearance MUSCULOSKELETAL: R sided hemiparesis, transfers with assist SKIN: warm and dry NEUROLOGIC: pupils are round and equal bilaterally, CN 2-12 grossly intact, no sensory deficit, normal cognition, normal speech, no tremor PSYCHIATRIC: alert cooperative and oriented to person, place and time. Euthymic mood, makes good eye contact,speech intact and he is intentional in his communication Results & Data Results & Data Vital Signs (Past 12 Hours) Vital Signs Temp Pulse Resp BP Pulse Ox O2 Del Method 07/05/23 08:02 36.8 C 90 16 174/82 H 96 Room Air 07/05/23 01:35 EST Room Air Medications Administered Current Inpatient Medications Acetaminophen (Acetaminophen 500 Mg Tab) 1,000 mg PO Q6H PRN PRN Reason: Fever Or Pain Stop: 08/03/23 15:13 Baclofen (Baclofen 10 Mg Tab) 10 mg PO BID DANY Stop: 08/03/23 20:59 Last Admin: 07/04/23 21:16 Dose: 10 mg Dexamethasone (Dexamethasone 4 Mg Tab) 4 mg PO Q6H DANY Stop: 08/03/23 15:29 Last Admin: 07/05/23 03:43 Dose: 4 mg Glycopyrrolate (Glycopyrrolate 0.2 Mg/Ml Vial) 0.2 mg IV Q4H PRN PRN Reason: Secretions or Pulm Congestion Stop: 08/03/23 15:08 Lacosamide 250 mg/ Sodium (Chloride) 75 mls @ 150 mls/hr IV Q12H DANY Stop: 08/03/23 23:29 Last Infusion: 07/05/23 01:08 EDT Dose: Infused Levetiracetam 2,000 mg/ Sodium (Chloride) 270 mls @ 999 mls/hr IV Q12H DANY Stop: 08/03/23 15:59 Last Infusion: 07/05/23 05:34 Dose: Infused Lorazepam (Lorazepam 2 Mg/1 Ml Vial) 0.5 mg IV Q4H PRN PRN Reason: Anxiety/Agitation Stop: 08/03/23 15:08 Lorazepam (Lorazepam 2 Mg/1 Ml Vial) 0.5 mg IV Q5M PRN PRN Reason: Seizure Miscellaneous (Clobazam 10mg: Order Awaiting Action) 1 each N/A QS [facility] Stop: 08/03/23 15:59 Last Admin: 07/05/23 00:04 Dose: Not Given Morphine Sulfate (Morphine Sulfate 2 Mg/Ml Carp) 2 mg IV Q4H PRN PRN Reason: Pain or Respiratory Distress Stop: 07/18/23 15:08 Ondansetron HCl (Ondansetron Inj 2 Mg/Ml 2 Ml Vial) 4 mg IV Q6H [facility] Stop: 08/03/23 15:29 Last Admin: 07/05/23 03:41 Dose: 4 mg Pantoprazole Sodium (Pantoprazole 40 Mg Tab) 40 mg PO QAM [facility] Stop: 08/04/23 08:59
[2023-07-05] MEDS: BACLOFEN 10 MG TAB PO SCH ×2 (10:12→20:48)
[2023-07-05] MEDS: PANTOprazole 40 MG TAB PO SCH (10:13)
[2023-07-05] MEDS ORDERED: MoRPHine SULFATE 10 MG/0.5 ML UDP PO PRN (10:48)
[2023-07-05] MEDS ORDERED: LORazepam 0.5 MG TAB PO PRN (10:48)
[2023-07-05] MEDS ORDERED: ACETAMINOPHEN 325 MG TAB PO PRN (10:48)
[2023-07-05] MEDS ORDERED: haloperidoL 1 MG TAB PO PRN (10:48)
[2023-07-05] MEDS ORDERED: ONDANSETRON 4 MG OD TAB SL PRN (10:48)
[2023-07-05] MEDS: LACOSAMIDE 50 MG TABLET PO SCH ×2 (12:38→20:48)
[2023-07-05] MEDS ORDERED: levETIRAcetam 500 MG TAB PO ONE (17:00)
[2023-07-05] MEDS: ONDANSETRON 4 MG OD TAB SL SCH (18:33)
[2023-07-06] MEDS: dexAMETHasone 4 MG TAB PO SCH ×3 (04:26→15:29)
[2023-07-06] MEDS ORDERED: levETIRAcetam 500 MG TAB PO SCH ×2 (06:00)
[2023-07-06] MEDS: PANTOprazole 40 MG TAB PO SCH (08:30)
[2023-07-06] MEDS: BACLOFEN 10 MG TAB PO SCH (08:30)
[2023-07-06] MEDS: ONDANSETRON 4 MG OD TAB SL SCH ×2 (08:32→15:29)
[2023-07-06] MEDS: LACOSAMIDE 50 MG TABLET PO SCH (10:02)
[2023-07-06 10:39] LABS: Appearance Urine Clear (Clear); Bilirubin Urine Negative (Negative); Blood Urine Negative (Negative); Color Urine Yellow; Glucose Urine UA Negative (Negative); Ketones Urine Negative (Negative); Leukocyte Esterase Urine Negative (Negative); Nitrite Urine Negative (Negative); Protein Urine Negative (Negative); Specific Gravity Urine 1.003 (1.000-1.030); Urobilinogen Urine Negative (Negative); pH Urine 6.5 (4.5-7.5)
--- NOTE | 2023-07-06 14:59 | Discharge Summary ---
Discharge Summary Date of Service July 06, 2023 Admission HPI Per Admitting Provider 33-year-old man with a history of glioblastoma status post subtotal resection/chemo/radiation in 2019 complicated by postop left MCA stroke requiring decompressive craniotomy with residual right-sided weakness and aphasia, seizure disorder and history of DVT on long-term anticoagulation presented to the ER with worsening headache nausea vomiting x1 day. He was admi tted and placed on intravenous Decadron with improvement. CT impression also revealed suspected foci of hemorrhage in the occipital horn of the left lateral ventricle and progression of recurrent tumor. He was placed on scheduled Zofran and is starting to tolerate p.o. Given his grim prognosis palliative care was consulted and he is being transition to general inpatient hospice. Today he is in no pain denies headache and denies other issues at this time. He is tolerating p.o. over the past 24 hours. Mother and are very involved in his care and mother is at his bedside today. Plans discussed regarding de- escalation of intravenous medication to oral as he tolerates. Principal Dx & Hospital Course #1 = Principal Diagnosis (1) Comfort measures only status: (2) Intractable nausea and vomiting: (3) Intracranial hemorrhage: (4) Vasogenic edema: (5) Glioblastoma multiforme: (6) Cushings syndrome: (7) Right hemiplegia: (8) Seizure disorder: Plan Continue Decadron p.o 4 times daily. Discussed with his mom and hospice nurse that 4 times daily dosing is not conducive to good sleep and rest. As things improve may consider tapering this down as outpatient. Continuing scheduled Zofran and backing down to every 12 hours with as needed as needed in between. Transition AEDs from intravenous to oral this morning. Patient continues to deny pain and has no evidence of anxiety or other issues at this time. Cont current therapy. Cassi Boland DO [facility] Hospitalist Discharge Exam CONSTITUTIONAL: WNWD, vitals as above, generally NAD EYES: normal conjunctivae, no scleral icterus ENT: external ear and nose normal, MMM NECK: trachea midline RESPIRATORY: clear to auscultation bilaterally, no crackles, rales or wheezes, normal respiratory effort CARDIOVASCULAR: regular rate and rhythm, S1 and 2 heard without murmurs, gallops or rubs, no JVD, no peripheral edema CHEST: inspection of chest was normal GASTROINTESTINAL: soft, nontender, ND, no guarding, cushingoid appearance MUSCULOSKELETAL: R sided hemiparesis, transfers with assist SKIN: warm and dry NEUROLOGIC: pupils are round and equal bilaterally, CN 2-12 grossly intact, no sensory deficit, normal cognition, normal speech, no tremor PSYCHIATRIC: alert cooperative and oriented to person, place and time. Euthymic mood, makes good eye contact,speech intact and he is intentional in his communication Updated Medication List Medication Instructions Recorded Confirmed Type lacosamide 200 mg tablet 200 mg PO BID 06/20/20 07/04/23 History levetiracetam 500 mg tablet 500 mg PO BID 06/20/20 07/04/23 History acetaminophen 500 mg tablet 1,000 mg PO Q6H PRN Fever Or Pain 08/07/20 07/04/23 History (Tylenol Extra Strength) omeprazole 40 mg capsule,delayed 40 mg PO QAM 03/07/22 07/04/23 History release baclofen 10 mg tablet 10 mg PO BID 02/01/23 07/04/23 History clobazam 10 mg tablet 5 mg PO QPM 02/01/23 07/04/23 History levetiracetam 750 mg tablet 1,500 mg PO BID 02/01/23 07/04/23 History midazolam 5 mg/spray (0.1 mL) 1 spray intranasal UD PRN rescue 02/01/23 07/04/23 History nasal spray (Nayzilam) seizure lacosamide 50 mg tablet 50 mg PO BID 07/02/23 07/04/23 History dexamethasone 4 mg tablet 4 mg PO Q6H #120 tabs 07/06/23 Rx lorazepam 0.5 mg tablet 0.5 mg PO Q4H PRN anxiety #20 tabs 07/06/23 Rx morphine concentrate 100 mg/5 mL 5 mg (0.25 mL) PO Q3H PRN severe 07/06/23 Rx (20 mg/mL) oral solution pain #120 mL ondansetron 4 mg disintegrating 4 mg sublingual Q12H PRN nausea 07/06/23 Rx tablet and vomiting #30 tabs Hospital Stay Data Consultations 07/04/23 15:10 Consult Palliative Care Routine Pending Results Patient Have Any Pending Studies at Discharge: No Discharge Instructions Given to Patient (Per Discharging Provider) Dear Eber, You are heading home with Hospice. They will provide prescriptions for pain, anxiety or any nausea you might have. I will also send some of those m edications to your pharmacy so you have them on hand. You should stay on the decadron every 6 hours, and then slowly taper over the next few weeks under the direction of a physician. It is recommended you continue taking your seizure medications at the same doses and continue with your scheduled Baclofen for comfort. It was a pleasure taking care of you! Please call if you have any questions or problems. You can reach a [facility] hospitalist on duty at [facility] 24 hours a day by calling [phone]. Take care of yourself. Cassi Boland, DO [facility]
== END 2023-07-06 16:02 | disposition hospice, home (50) | DRG 951 ==
LOC: 2W 14:52